=== PATIENT | male | born 1950 | race African-American/Black ===

== ENCOUNTER 2017-02-03 20:58 | Emergency (ER) | payer BC, OTHER ==
[2017-02-03 21:03] VITALS: BP 159/97; BMI 25.0
--- NOTE | 2017-02-03 22:01 | DR.GENAD ---
HPI - PCP Primary Care Physician: BENITO TINAJERO - Complaint/Symptoms Chief Complaint:: PT STATES HE HAS BEEN TAKING HIS BP MEDS WRONG AND BP WAS HIGH AT HOME. PT IS SUPPOSED TO TAKE HIS LISINOPRIL BID. LAST DOSE OF LISINOPRIL WAS AROUND 1845. - Source History Provided: Patient - Mode of Arrival Mode of Arrival: Ambulatory - Timing Onset of Chief Complaint: 02/03/17 PMH - PMH Past Medical History: Yes Past Medical History: Hypertension, Arthritis Past Surgical History: Yes Surgical History: Abdominal Surgery, Other - Family History History of Family Medical Conditions: Yes Family Medical History: Diabetes Mellitus, Hypertension - Social History Alcohol Use: None Do you use any recreational Drugs:: No Lives With: Family Lives Where: Home - infectious screening In the last 2 months have you had wt loss of >10#?: NO Have you had fever, night sweats or hemotysis?: No Have you traveled outside the country in the last 6 months?: No Isolation: Standard ROS - Review of Systems Eyes: No Symptoms Reported ENTM: No Symptoms Reported Respiratoy: No Symptoms Reported Cardiovascular: No Symptoms Reported Gastrointestinal/Abdominal: No Symptoms Reported Genitourinary: No Symptoms Reported Neurological: No Symptoms Reported Musculoskeletal: No Symptoms Reported Integumentary: No Symptoms Reported Hematologic/Lymphatic: No Symptoms Reported Endocrine: No Symptoms Reported Psychiatric: No Symptoms Reported All Other Systems: Reviewed and Negative PE - Vital Signs Vitals: Temperature 98.3 F Pulse Rate 95 Respiratory Rate 20 Blood Pressure 159/97 O2 Sat by Pulse Oximetry 96 - General General Appearance: Alert, In No Apparent Distress - Head Head Exam: Normal Inspection, Atraumatic - Eyes Eye exam: Normal Appearance, PERRL, EOMI - ENT ENT Exam: Normal Exam External Ear Exam: Normal External Inspection TM/Canal Exam: Bilateral Normal Nose Exam: Normal Nose Exam Mouth Exam: Normal Inspection Throat Exam: Normal Inspection - Neck Neck Exam: Normal Inspection - Chest Chest Inspection: Normal Inspection - Respiratory Respiratory Exam: Normal Lung Sounds Bilat Respiratory Exam: Bilateral Clear to Auscultation - Cardiovascular Cardiovascular Exam: Regular Rate, Normal Rhythm - Abdominal Exam Abdominal Exam: Normal Inspection Abdominal Tenderness: negative: RUQ, RLQ, LUQ, LLQ, Epigastrium, Suprapubic, Diffuse, Mild, Moderate, Severe, Other - Extremities Extremities Exam: Normal Inspection, Full ROM - Back Back Exam: Normal Inspection - Neurologic Neurological Exam: Alert, Oriented X3, CN II-XII Intact - Skin Skin Exam: Warm, Dry, Intact Course - Reevaluation 1st: Improved ROR - Labs Reviewed Result Diagrams: 02/03/17 22:15 02/03/17 22:15 Laboratory: WBC 8.8 X10^3/uL (3.6-10.0) 02/03/17 22:15 RBC 5.27 X10^6/uL (4.7-6.0) 02/03/17 22:15 Hgb 15.8 g/dL (13.5-18.0) 02/03/17 22:15 Hct 46.1 % (42.0-54.0) 02/03/17 22:15 MCV 87.5 fL (80.0-100.0) 02/03/17 22:15 MCH 30.0 pg (27.0-34.0) 02/03/17 22:15 MCHC 34.3 g/dL (33.0-35.0) 02/03/17 22:15 RDW 14.5 % (11.6-16.5) 02/03/17 22:15 Plt Count 266 X10^3/uL (150.0-450.0) 02/03/17 22:15 MPV 7.0 fL (7.4-11.0) L 02/03/17 22:15 Neut % 63.4 % (42.0-75.0) 02/03/17 22:15 Lymph % 22.7 % (21.0-51.0) 02/03/17 22:15 [place] % 10.3 % (0.0-13.0) 02/03/17 22:15 Eos % 2.9 % (0.9-2.9) 02/03/17 22:15 Baso % 0.7 % (0.2-1.0) 02/03/17 22:15 Neut # 5.6 x10^3/uL (2.2-4.8) H 02/03/17 22:15 Lymph # 2.0 X10^3/uL (1.3-2.9) 02/03/17 22:15 [place] # 0.9 x10^3/uL (0.3-0.8) H 02/03/17 22:15 Eos # 0.3 x10^3/uL (0.0-0.2) H 02/03/17 22:15 Baso # 0.1 X10^3/uL (0.0-0.1) 02/03/17 22:15 Absolute Nucleated RBC 0.1 /100WBC 02/03/17 22:15 Sodium 137 mmol/L (136-145) 02/03/17 22:15 Corrected Sodium 137 mmol/L (136-145) 02/03/17 22:15 Potassium 4.0 mmol/L (3.5-5.1) 02/03/17 22:15 Chloride 105 mmol/L (98-107) 02/03/17 22:15 Carbon Dioxide 25.8 mmol/L (21-32) 02/03/17 22:15 BUN 17 mg/dL (7-18) 02/03/17 22:15 Creatinine 1.23 mg/dL (0.70-1.30) 02/03/17 22:15 Est GFR (MDRD) Af Amer > 60 (>60) 02/03/17 22:15 Est GFR (MDRD) Non-Af > 60 (>60) 02/03/17 22:15 Glucose 118 mg/dL (65-99) H 02/03/17 22:15 Calcium 8.9 mg/dL (8.5-10.1) 02/03/17 22:15 Corrected Calcium TNP 02/03/17 22:15 Total Bilirubin 0.30 mg/dL (0.2-1.0) 02/03/17 22:15 AST 24 Units/L (15-37) 02/03/17 22:15 ALT 32 Units/L (12-78) 02/03/17 22:15 Alkaline Phosphatase 86 Units/L (46-116) 02/03/17 22:15 Total Protein 7.1 g/dL (6.4-8.2) 02/03/17 22:15 Albumin 3.5 g/dL (3.4-5.0) 02/03/17 22:15 Globulin 3.6 g/dL (2.5-4.5) 02/03/17 22:15 Albumin/Globulin Ratio 1.0 Ratio (1.1-2.1) L 02/03/17 22:15 - Diagnosis Discharge Problem: Elevated BP without diagnosis of hypertension - Discharge Plan Condition: Stable - Follow ups/Referrals Follow ups/Referrals: SINCERE TINAJERO [Primary Care Provider] - 3 days - Instructions
[2017-02-03] MEDS ORDERED: CATAPRES TAB 0.1 MG PO ONE (22:17)
[2017-02-03 22:23] LABS: BASOPHILS # (AUTO) 0.1 X10^3/uL (0.0-0.1); BASOPHILS % (AUTO) 0.7 % (0.2-1.0); EOSINOPHILS # (AUTO) 0.3 x10^3/uL (0.0-0.2); EOSINOPHILS % (AUTO) 2.9 % (0.9-2.9); HEMATOCRIT 46.1 % (42.0-54.0); HEMOGLOBIN 15.8 g/dL (13.5-18.0); LYMPHOCYTES % (AUTO) 22.7 % (21.0-51.0); MEAN CORPUSCULAR HGB CONC 34.3 g/dL (33.0-35.0); MEAN CORPUSCULAR VOLUME 87.5 fL (80.0-100.0); MONOCYTES # (AUTO) 0.9 x10^3/uL (0.3-0.8); MONOCYTES % (AUTO) 10.3 % (0.0-13.0); NEUTROPHILS # (AUTO) 5.6 x10^3/uL (2.2-4.8); NEUTROPHILS % (AUTO) 63.4 % (42.0-75.0); PLATELET COUNT 266 X10^3/uL (150.0-450.0); RED BLOOD COUNT 5.27 X10^6/uL (4.7-6.0); RED CELL DISTRIBUTION WIDTH 14.5 % (11.6-16.5); WHITE BLOOD COUNT 8.8 X10^3/uL (3.6-10.0)
[2017-02-03 22:36] LABS: ALANINE AMINOTRANSFERASE 32 Units/L (12-78); ALBUMIN 3.5 g/dL (3.4-5.0); ALKALINE PHOSPHATASE 86 Units/L (46-116); ASPARTATE AMINO TRANSFERASE 24 Units/L (15-37); BLOOD UREA NITROGEN 17 mg/dL (7-18); CALCIUM 8.9 mg/dL (8.5-10.1); CARBON DIOXIDE 25.8 mmol/L (21-32); CHLORIDE 105 mmol/L (98-107); COR NA(FOR HYPERGLY) 137 mmol/L (136-145); CREATININE 1.23 mg/dL (0.70-1.30); GLUCOSE 118 mg/dL (65-99); SODIUM 137 mmol/L (136-145); TOTAL PROTEIN 7.1 g/dL (6.4-8.2); eGFR BLACK RACES > 60 (>60); eGFR NON BLACK RACES > 60 (>60)
[2017-02-03] MEDS ORDERED: CATAPRES TAB 0.1 MG ONE (22:39)
== END 2017-02-03 23:04 | disposition home or self-care (01) ==
LOC: ER 21:12
DX: R03.0 Elevated blood-pressure reading, without diagnosis of hypertension (principal)
CPT/HCPCS: 36415; 80053; 85025; 99282

== ENCOUNTER 2017-04-30 07:32 | Emergency (ER) | payer BC, OTHER ==
[2017-04-30 07:41] VITALS: BP 137/78; BMI 25.0
--- NOTE | 2017-04-30 09:16 | DR.GENAD ---
HPI - PCP Primary Care Physician: WILLI - HPI Comment HPI Comment: PATIENT HAVE COUGH, CONGESTION, CHEST PAIN, BODYACHES AND RECENT PNEUMONIA. NO FEVER. WORSE TODAY. - Complaint/Symptoms Chief Complaint Doctors Comments: INCREASING SOB, RECENT PNEUMONIA. Chief Complaint:: CAN'T BREATHE AND WHOLE BODY ACHES Self Treatment fo Chief Complaint: HERNIA SURGERY TWO WEEKS, TREATED FOR PNEUMONIA WHILE IN HOSPITAL FOR WEEK TREATED WITH ANTIBIOTICS. - Nurses notes reviewed Nurses Notes Review: Yes - Source History Provided: Patient - Mode of Arrival Mode of Arrival: Ambulatory - Timing Onset of Chief Complaint: 04/28/17 Came on: Suddenly - Duration Duration: Constant Duration: Days - Severity Severity: Moderate PMH - PMH Past Medical History: Yes Past Medical History: Hypertension, Arthritis Past Surgical History: Yes Surgical History: Abdominal Surgery, Other Past Surgical History Comment: HERNIA SURGERY, BLOCKAGE IN LEGS - Family History History of Family Medical Conditions: Yes Family Medical History: Diabetes Mellitus, Hypertension - Social History Type of Tobacco Use: Cigarettes Does any household member use tobacco: No Alcohol Use: None Do you use any recreational Drugs:: No Lives With: Spouse Lives Where: Home - infectious screening In the last 2 months have you had wt loss of >10#?: NO Have you had fever, night sweats or hemotysis?: No Have you traveled outside the country in the last 6 months?: No Isolation: Standard ROS - Review of Systems Constitutional: Weakness, Fatigue. negative: Chills, Fever Eyes: No Symptoms Reported. negative: Eye Pain, Discharge ENTM: Nose Congestion, Throat Pain. negative: Ear Pain, Nose Discharge Respiratoy: Productive Cough, Short of Breath, Wheezing Cardiovascular: Chest Pain. negative: Edema, Palpitations Gastrointestinal/Abdominal: No Symptoms Reported, Nausea. negative: Diarrhea, Vomiting Genitourinary: No Symptoms Reported. negative: Dysuria, Frequency, Hematuria Neurological: Headache, Weakness, Dizziness Musculoskeletal: Muscle Pain Integumentary: No Symptoms Reported Hematologic/Lymphatic: No Symptoms Reported Endocrine: No Symptoms Reported All Other Systems: Reviewed and Negative PE - Vital Signs Vitals: Temperature 98.7 F Pulse Rate 106 Respiratory Rate 20 Blood Pressure 137/78 O2 Sat by Pulse Oximetry 92 - General Limitations: No Limitations General Appearance: Alert - Head Head Exam: Normal Inspection - Eyes Eye exam: Normal Appearance - ENT ENT Exam: Normal External Ear Exam External Ear Exam: Normal External Inspection TM/Canal Exam: Bilateral Normal Nose Exam: Normal Nose Exam Mouth Exam: Normal Inspection Throat Exam: Normal Inspection - Neck Neck Exam: Trachea Midline - Chest Chest Inspection: Symmetric Chest Wall Rise - Respiratory Respiratory Exam: Normal Lung Sounds Bilat Respiratory Exam: Bilateral Wheezing, Bilateral Rhonchi, Upper Rhonchi, Lower Wheezing, Lower Rhonchi - Cardiovascular Cardiovascular Exam: Regular Rate, Normal Rhythm, Normal Heart Sounds - Abdominal Exam Abdominal Exam: Normal Bowel Sounds, Soft. negative: Tenderness - Extremities Extremities Exam: Normal Inspection - Back Back Exam: Normal Inspection - Neurologic Neurological Exam: Alert, Oriented X3 - Psychiatric Psychiatric Exam: Normal Affect, Normal Mood - Skin Skin Exam: Normal Color MDM - Differential Diagnosis Differential Diagnosis: CHEST PAIN, PNEUMONIA, AL, BRONCHITIS Course - Treatment Treatment: SEE ORDERS. - Education/Counseling Education/Counseling: Patient, Education Educated On: Treatment, Diagnosis, Needs for Follow Up ROR - Labs Reviewed Laboratory Results Reviewed?: Yes Result Diagrams: 04/30/17 09:28 04/30/17 09:28 Laboratory: 04/30/17 09:56 Sputum - Expectorated Sputum Sputum Culture - Preliminary 04/30/17 09:56 Sputum - Expectorated Sputum - Final 04/30/17 09:56 Throat Throat Culture - Preliminary WBC 11.9 X10^3/uL (3.6-10.0) H 04/30/17 09:28 RBC 4.68 X10^6/uL (4.7-6.0) L 04/30/17 09:28 Hgb 14.0 g/dL (13.5-18.0) 04/30/17 09:28 Hct 41.9 % (42.0-54.0) L 04/30/17 09:28 MCV 89.5 fL (80.0-100.0) 04/30/17 09:28 MCH 29.9 pg (27.0-34.0) 04/30/17 09:28 MCHC 33.4 g/dL (33.0-35.0) 04/30/17 09:28 RDW 14.7 % (11.6-16.5) 04/30/17 09:28 Plt Count 279 X10^3/uL (150.0-450.0) 04/30/17 09:28 MPV 7.4 fL (7.4-11.0) 04/30/17 09: Neut % 79.0 % (42.0-75.0) H 04/30/17 09: Lymph % 9.1 % (21.0-51.0) L 04/30/17 09: [place] % 9.9 % (0.0-13.0) 04/30/17 09: Eos % 1.6 % (0.9-2.9) 04/30/17 09: Baso % 0.4 % (0.2-1.0) 04/30/17 09: Neut # 9.4 x10^3/uL (2.2-4.8) H 04/30/17 09: Lymph # 1.1 X10^3/uL (1.3-2.9) L 04/30/17 09:28 [place] # 1.2 x10^3/uL (0.3-0.8) H 04/30/17 09:28 Eos # 0.2 x10^3/uL (0.0-0.2) 04/30/17 09: Baso # 0.0 X10^3/uL (0.0-0.1) 04/30/17 09: Absolute Nucleated RBC 0.0 /100WBC 04/30/17 09:28 Sodium 141 mmol/L (136-145) 04/30/17 09:28 Corrected Sodium TNP 04/30/17 09:28 Potassium 4.6 mmol/L (3.5-5.1) 04/30/17 09: Chloride 106 mmol/L (98-107) 04/30/17 09: Carbon Dioxide 25.0 mmol/L (21-32) 04/30/17 09:28 BUN 16 mg/dL (7-18) 04/30/17 09:28 Creatinine 1.50 mg/dL (0.70-1.30) H 04/30/17 09:28 Est GFR (MDRD) Af Amer 60 (>60) 04/30/17 09:28 Est GFR (MDRD) Non-Af 50 (>60) L 04/30/17 09:28 Glucose 98 mg/dL (65-99) 04/30/17 09:28 Calcium 9.6 mg/dL (8.5-10.1) 04/30/17 09:28 Corrected Calcium TNP 04/30/17 09:28 Total Bilirubin 0.50 mg/dL (0.2-1.0) 04/30/17 09:28 AST 20 Units/L (15-37) 04/30/17 09:28 ALT 27 Units/L (12-78) 04/30/17 09:28 Alkaline Phosphatase 137 Units/L (46-116) H 04/30/17 09:28 Creatine Kinase 61 Units/L (39-308) 04/30/17 09:28 CK-MB (CK-2) < 1.0 ng/mL (0-4.0) 04/30/17 09:28 CK/CKMB % Calc 1.6 % (<4) 04/30/17 09:28 Troponin I < 0.02 ng/mL (0-1.5) 04/30/17 09:28 B-Natriuretic Peptide 26.8 pg/mL (0-79) 04/30/17 09:28 Total Protein 7.4 g/dL (6.4-8.2) 04/30/17 09:28 Albumin 3.4 g/dL (3.4-5.0) 04/30/17 09:28 Globulin 4.0 g/dL (2.5-4.5) 04/30/17 09:28 Albumin/Globulin Ratio 0.9 Ratio (1.1-2.1) L 04/30/17 09:28 Specimen Type Clean catch urine 04/30/17 09:56 Urine Color Dark yellow (YELLOW) 04/30/17 09:56 Urine Appearance Clear (CLEAR) 04/30/17 09:56 Urine pH 6.5 (5.0 - 8.0) 04/30/17 09:56 Ur Specific [place] 1.010 (1.000-1.030) 04/30/17 09:56 Urine Protein 2+ (NEGATIVE) 04/30/17 09:56 Urine Glucose (UA) Negative (NEGATIVE) 04/30/17 09:56 Urine Ketones Negative (NEGATIVE) 04/30/17 09:56 Urine Occult Blood 2+ (NEGATIVE) 04/30/17 09:56 Urine Nitrite Negative (NEGATIVE) 04/30/17 09:56 Urine Bilirubin Negative (NEGATIVE) 04/30/17 09:56 Urine Urobilinogen Normal (NORMAL) 04/30/17 09:56 Ur Leukocyte Esterase 1+ (NEGATIVE) 04/30/17 09:56 Urine RBC 4-7 /HPF (NEGATIVE) 04/30/17 09:56 Urine WBC 0-4 /HPF (NEGATIVE) 04/30/17 09:56 Ur Squamous Epith Cells Rare /HPF (NEGATIVE) 04/30/17 09:56 Urine Bacteria Negative /HPF (NEGATIVE) 04/30/17 09:56 Ur Culture Indicated? No/not indicated 04/30/17 09:56 Influenza Type A (PCR) Negative (NEGATIVE) 04/30/17 09:56 Influenza Type B (PCR) Negative (NEGATIVE) 04/30/17 09:56 Streptococcus Screen Negative (NEGATIVE) 04/30/17 09:56 - XRAY XRAY Interpreted by: Radiologist XRAY Findings: REPORT DISCUSS WITH PATIENT. - EKG Rhythm: NSR (EKG NOTED) - Diagnosis Discharge Problem: Acute bronchitis Qualifiers: Bronchitis organism: other organism Qualified Code(s): J20.8 - Acute bronchitis due to other specified organisms Chest pain Qualifiers: Chest pain type: unspecified Qualified Code(s): R07.9 - Chest pain, unspecified - Discharge Plan Disposition: HOME, SELF-CARE Condition: Stable Prescriptions: Benzonatate [Tessalon Perle] 200 mg PO TID PRN #30 cap PRN Reason: Cough Ibuprofen [MOTRIN TAB 600 MG *] 600 mg PO TID PRN #20 tab PRN Reason: Pain/Inflammation Levofloxacin [Levaquin] 750 mg PO DAILY #7 tablet - Follow ups/Referrals Follow ups/Referrals: SINCERE TINAJERO [Primary Care Provider] - 3 days - Instructions Instructions: Acute Bronchitis, [id number], Chest Pain Observation Additional Instructions: RETURN TO ED IF WORSE.
[2017-04-30 10:05] LABS: BASOPHILS % (AUTO) 0.4 % (0.2-1.0); EOSINOPHILS # (AUTO) 0.2 x10^3/uL (0.0-0.2); EOSINOPHILS % (AUTO) 1.6 % (0.9-2.9); HEMATOCRIT 41.9 % (42.0-54.0); LYMPHOCYTES # (AUTO) 1.1 X10^3/uL (1.3-2.9); LYMPHOCYTES % (AUTO) 9.1 % (21.0-51.0); MEAN CORPUSCULAR HEMOGLOBIN 29.9 pg (27.0-34.0); MEAN CORPUSCULAR HGB CONC 33.4 g/dL (33.0-35.0); MEAN CORPUSCULAR VOLUME 89.5 fL (80.0-100.0); MEAN PLATELET VOLUME 7.4 fL (7.4-11.0); MONOCYTES # (AUTO) 1.2 x10^3/uL (0.3-0.8); MONOCYTES % (AUTO) 9.9 % (0.0-13.0); NEUTROPHILS # (AUTO) 9.4 x10^3/uL (2.2-4.8); PLATELET COUNT 279 X10^3/uL (150.0-450.0); RED BLOOD COUNT 4.68 X10^6/uL (4.7-6.0); RED CELL DISTRIBUTION WIDTH 14.7 % (11.6-16.5); WHITE BLOOD COUNT 11.9 X10^3/uL (3.6-10.0)
[2017-04-30 10:06] LABS: BILIRUBIN,URINE NEGATIVE (NEGATIVE); BLOOD/HEMOGLOBIN,URINE 2+ (NEGATIVE); GLUCOSE, URINE NEGATIVE (NEGATIVE); KETONES,URINE NEGATIVE (NEGATIVE); LEUKOCYTE ESTERASE ,URINE 1+ (NEGATIVE); NITRITES,URINE NEGATIVE (NEGATIVE); PH,URINE 6.5 (5.0 - 8.0); PROTEIN,URINE 2+ (NEGATIVE); UROBILINOGEN,URINE NORMAL (NORMAL)
[2017-04-30 10:19] LABS: BLOOD UREA NITROGEN 16 mg/dL (7-18); CALCIUM 9.6 mg/dL (8.5-10.1); CHLORIDE 106 mmol/L (98-107); SODIUM 141 mmol/L (136-145); TROPONIN I < 0.02 ng/mL (0-1.5); eGFR BLACK RACES 60 (>60); eGFR NON BLACK RACES 50 (>60)
[2017-04-30 10:20] LABS: B-TYPE NATRIURETIC PEPTIDE 26.8 pg/mL (0-79)
[2017-04-30 10:24] LABS: ALANINE AMINOTRANSFERASE 27 Units/L (12-78); ALBUMIN 3.4 g/dL (3.4-5.0); ALKALINE PHOSPHATASE 137 Units/L (46-116); ASPARTATE AMINO TRANSFERASE 20 Units/L (15-37); CREATINE KINASE 61 Units/L (39-308); CREATINE KINASE MB < 1.0 ng/mL (0-4.0); TOTAL PROTEIN 7.4 g/dL (6.4-8.2)
[2017-04-30 10:25] LABS: APPEARANCE,URINE CLEAR (CLEAR); BACTERIA,URINE NEGATIVE /HPF (NEGATIVE); COLOR,URINE DARK YELLOW (YELLOW); SQUAMOUS EPITHELIAL CELL,UR RARE /HPF (NEGATIVE)
[2017-04-30 10:29] LABS: CKMB % 1.6 % (<4)
[2017-04-30] MEDS ORDERED: ROCEPHIN VIAL 1 GM IM ONE (11:25)
--- NOTE | 2017-04-30 11:27 | RAD ---
HISTORY: Shortness breath. Coughing. Pneumonia 1 week ago. Study: Chest one view Comparison: February 17, 2015. Findings: The trachea is midline. The cardiac silhouette is unremarkable. The lungs are clear without focal i nfiltrate or effusion. The bony thorax is unremarkable. IMPRESSION: 1. No acute cardiopulmonary disease. Reported By:
[2017-04-30] MEDS ORDERED: TORADOL 60 MG VIAL IM ONE (11:33)
[2017-04-30] MEDS ORDERED: TESSALON PERLES PO ONE (11:34)
[2017-04-30] MEDS ORDERED: ROCEPHIN VIAL 1 GM ONE (11:37)
[2017-04-30] MEDS ORDERED: TORADOL 60 MG VIAL ONE (11:37)
[2017-04-30] MEDS ORDERED: XYLOCAINE 1 % (PLAIN) ONE (11:38)
== END 2017-04-30 12:05 | disposition home or self-care (01) ==
LOC: ER 07:43
DX: J20.8 Acute bronchitis due to other specified organisms (principal); R07.89 Other chest pain; B96.5 Pseudomonas (aeruginosa) (mallei) (pseudomallei) as the cause of diseases classified elsewhere
CPT/HCPCS: 36415; 71010; 80053; 81001; 82550; 82553; 83880; 84484; 85025; 87070; 87077; 87186; 87205; 87502; 87880; 93005; 93010; 96372; 99282; 99283; J0696; J1885; J2001

== ENCOUNTER 2018-12-12 04:06 | Observation (INO) ==
--- NOTE | 2018-12-12 04:39 | DR.HEADACH ---
HPI Time Seen Time Seen by Provider: 12/12/18 04:21 HPI Comment HPI Comment: PATIENT IS 68YR OLD MALE IN ED WITH HISTORY OF HYPERTENSION IN ED WITH SEVERE HEADACHE, ATAXIA, AND ALTERED MENTAL STATUS. PATIENT IS WEAK AND DRAIN OF ENERGY. SAID SINCE MIDNIGHT, PATIENT HAS FALLEN SEVERAL TIMES. NO FEVER. HE IS COUGHING, PRODUCTIVE, YELLOW SPUTUM. NO FEVER. BP ELEVATED IN ED. ROUND.PATIENT IS SOB AND O2 SAT FALLS WHEN PATIENT MOVE AROUND. Complaint/Symptoms Chief Complaint Doctors Comments: SEVERE HEADACHE, FALLING A LOT AND NOT ACTING LIKE HIMSELF TONIGHT. Pertinent History: Dizziness/Weakness and Headache Reviewed Nurses Notes Reviewed: Yes Source History Provided: Patient and Family Member Mode of Arrival Mode of Arrival: Stretcher Duration Since Onset: Constant Location Headache Location: Generalized Quality Quality: Throbbing and Shooting Severity Headache Severity: Worst Headache of Life Context Headache Onset Circumstances: Spontaneous History of: Hypertension Prior Work Up: None; denies MRI and Neurologist Modifying Factors Improves With: Nothing Worsens: Head Movement Associated Signs and Symptoms Associated Symptoms: Weakness and Nasal Congestion Aura: denies Visual, Sensory, Motor and Mood PMH PMH Past Medical History: Arthritis and Hypertension Past Surgical History: Yes Surgical History: Abdominal Surgery and Other Family History Family Medical History: Diabetes Mellitus and Hypertension Social History Do you use any recreational Drugs:: No ROS Review of Systems Constitutional: See HPI, Weakness and Fatigue; negative Fever Eyes: No Symptoms Reported and See HPI; negative Eye Pain, Tearing and Discharge ENTM: See HPI and Nose Congestion; negative Ear Pain, Nose Discharge and Throat Pain Respiratoy: See HPI, Productive Cough and Short of Breath; negative Wheezing Cardiovascular: No Symptoms Reported and See HPI; negative Edema and Syncope Gastrointestinal/Abdominal: No Symptoms Reported and See HPI; negative Abdominal Pain, Constipation, Diarrhea, Nausea and Vomiting Genitourinary: No Symptoms Reported and See HPI; negative Dysuria and Hematuria Neurological: See HPI, Headache and Weakness; negative Dizziness Musculoskeletal: No Symptoms Reported, See HPI, Back Pain, Joint Pain and Muscle Pain Integumentary: No Symptoms Reported, See HPI and Dryness; negative Change in Color, Rash and Bruises Hematologic/Lymphatic: No Symptoms Reported and See HPI; negative Easy Bruising, Swollen Glands and Lymphadenopathy Endocrine: No Symptoms Reported and See HPI; negative Increased Thirst, Increased Urine and Decreased Appetite Psychiatric: No Symptoms Reported and See HPI All Other Systems: Reviewed and Negative PE Vital Signs Vitals: Temperature 97.8 F Pulse Rate [Right] 70 Pulse Rate 67 Respiratory Rate 20 Blood Pressure [Right Arm] 190/101 Blood Pressure 188/92 O2 Sat by Pulse Oximetry 100 General Limitations: Altered Mental Status General Appearance: Alert and In Distress Head Head Exam: Normal Inspection, Atraumatic and Normocephalic Eyes Eye exam: Normal Appearance, PERRL and EOMI; negative Scleral Icterus and C onjunctival Injection Eyelids: Normal Inspection: Bilateral Pupils: Regular, Round: Bilateral and Reactive: Bilateral Sclera/Conjunctival: Normal Inspection: Bilateral ENT ENT Exam: Normal Exam, Normal Oropharynx, Normal External Ear Exam, Mucous Membranes Moist and TM's Normal Bilaterally External Ear Exam: Normal External Inspection; negative Mastoid Tenderness, Pain with Movement and External Tenderness TM/Canal Exam: Bilateral: Normal Nose Exam: Normal Nose Exam; negative Sinus Tenderness, Nasal Deviation and Septal Hematoma Mouth Exam: Normal Inspection; negative Trismus, Lip Swelling and Tongue Swelling Teeth Exam: negative Gingival Swelling Throat Exam: Normal Inspection; negative Tonsillar Erythema, Tonsillomegaly and Tonsillar Exudate Neck Neck Exam: Normal Inspection, Full ROM and Trachea Midline; negative Tenderness, Meningismus and Lymphadenopathy Chest Chest Inspection: Normal Inspection and Symmetric Chest Wall Rise; negative Tenderness Respiratory Respiratory Exam: Normal Lung Sounds Bilat; negative Accessory Muscle Use, Chest Wall Tenderness and Respiratory Distress Respiratory Exam: Bilateral: Rhonchi and Lower: Rhonchi Cardiovascular Cardiovascular Exam: Regular Rate, Normal Rhythm and Normal Heart Sounds; negative Systolic Murmur, Diastolic Murmur, Rubs and Gallop Abdominal Exam Abdominal Exam: Normal Inspection, Normal Bowel Sounds and Soft; negative Tenderness, Organomegaly and Mass Extremities Extremities Exam: negative Tenderness, Normal Capillary Refill, Edema, Joint Swelling and Calf Tenderness Neurologic Neurological Exam: Alert; negative Oriented X3, CN II-XII Intact and Motor Sensory Deficit Psychiatric Psychiatric Exam: Normal Affect and Flat Affect Skin Skin Exam: Dry and Intact MDM Additional Information Obtained Additional Information Obtained From: Family Differential Diagnosis Differential Diagnosis: Considerations may include:: Hypertensive, CVA, Mass Lesion and Sinusitis Differential Diagnosis Comment: AMS, HEADACHE, GENERALIZE WEAKNESS, BRONCHITIS COURSE Education/Counseling Education/Counseling: Patient and Family Educated On: Diagnosis ROR Labs Reviewed Laboratory Results Reviewed?: Yes Result Diagrams: 12/12/18 04:50 12/12/18 04:50 Laboratory: WBC 7.8 X10^3/uL (3.6-10.0) 12/12/18 04:50 RBC 5.26 X10^6/uL (4.7-6.0) 12/12/18 04:50 Hgb 15.6 g/dL (13.5-18.0) 12/12/18 04:50 Hct 46.7 % (42.0-54.0) 12/12/18 04:50 MCV 88.7 fL (80.0-100.0) 12/12/18 04:50 MCH 29.6 pg (27.0-34.0) 12/12/18 04:50 MCHC 33.4 g/dL (33.0-35.0) 12/12/18 04:50 RDW 14.4 % (11.6-16.5) 12/12/18 04:50 Plt Count 220 X10^3/uL (150.0-450.0) 12/12/18 04:50 MPV 7.4 fL (7.4-11.0) 12/12/18 04:50 Neut % (Auto) 66.9 % (42.0-75.0) 12/12/18 04:50 Lymph % (Auto) 20.3 % (21.0-51.0) L 12/12/18 04:50 [place] % (Auto) 8.3 % (0.0-13.0) 12/12/18 04:50 Eos % (Auto) 3.8 % (0.9-2.9) H 12/12/18 04:50 Baso % (Auto) 0.7 % (0.2-1.0) 12/12/18 04:50 Neut # (Auto) 5.2 x10^3/uL (2.2-4.8) H 12/12/18 04:50 Lymph # (Auto) 1.6 X10^3/uL (1.3-2.9) 12/12/18 04:50 [place] # (Auto) 0.6 x10^3/uL (0.3-0.8) 12/12/18 04:50 Eos # (Auto) 0.3 x10^3/uL (0.0-0.2) H 12/12/18 04:50 Baso # (Auto) 0.1 X10^3/uL (0.0-0.1) 12/12/18 04:50 Absolute Nucleated RBC 0.0 /100WBC 12/12/18 04:50 Sodium 142 mmol/L (136-145) 12/12/18 04:50 Corrected Sodium TNP 12/12/18 04:50 Potassium 4.7 mmol/L (3.5-5.1) 12/12/18 04:50 Chloride 106 mmol/L (98-107) 12/12/18 04:50 Carbon Dioxide 29.0 mmol/L (21-32) 12/12/18 04:50 BUN 17 mg/dL (7-18) 12/12/18 04:50 Creatinine 1.72 mg/dL (0.70-1.30) H 12/12/18 04:50 Est GFR (MDRD) Af Amer 51 (>60) L 12/12/18 04:50 Est GFR (MDRD) Non-Af 42 (>60) L 12/12/18 04:50 Glucose 92 mg/dL (65-99) 12/12/18 04:50 Lactic Acid 0.6 mmol/L (0.4-2.0) 12/12/18 04:50 Calcium 9.7 mg/dL (8.5-10.1) 12/12/18 04:50 Corrected Calcium TNP 12/12/18 04:50 Total Bilirubin 0.40 mg/dL (0.2-1.0) 12/12/18 04:50 AST 18 Units/L (15-37) 12/12/18 04:50 ALT 28 Units/L (12-78) 12/12/18 04:50 Alkaline Phosphatase 86 Units/L (46-116) 12/12/18 04:50 Creatine Kinase 113 Units/L (39-308) 12/12/18 04:50 CK-MB (CK-2) 2.0 ng/mL (0-4.0) 12/12/18 04:50 CK/CKMB % Calc 1.8 % (<4) 12/12/18 04:50 Troponin I < 0.02 ng/mL (0-1.5) 12/12/18 04:50 C-Reactive Protein 1.60 mg/L (0-3.0) 12/12/18 04:50 Total Protein 6.9 g/dL (6.4-8.2) 12/12/18 04:50 Albumin 3.7 g/dL (3.4-5.0) 12/12/18 04:50 Globulin 3.2 g/dL (2.5-4.5) 12/12/18 04:50 Albumin/Globulin Ratio 1.2 Ratio (1.1-2.1) 12/12/18 04:50 XRAY XRAY Interpreted by: Radiologist XRAY Findings: REPORT ON RECORD NOTED AND DISCUSS WITH PATIENT AND HIS . EKG Rate: 71 [place]: Normal Rhythm: NSR Block: None Hypertrophy: LAE ST: Old, Ant and Ischemia Diagnosis Discharge Problem: Generalized weakness, Ataxia Altered mental status Qualifiers: Altered mental status type: transient alteration of awareness Qualified Code(s): R40.4 - Transient alteration of awareness Acute bronchitis Qualifiers: Bronchitis organism: unspecified organism Qualified Code(s): J20.9 - Acute bronchitis, unspecified Headache Qualifiers: Headache type: unspecified Headache chronicity pattern: acute headache Intractability: intractable Qualified Code(s): R51 - Headache
[2018-12-12 05:10] LABS: BASOPHILS # (AUTO) 0.1 X10^3/uL (0.0-0.1); BASOPHILS % (AUTO) 0.7 % (0.2-1.0); EOSINOPHILS # (AUTO) 0.3 x10^3/uL (0.0-0.2); EOSINOPHILS % (AUTO) 3.8 % (0.9-2.9); HEMATOCRIT 46.7 % (42.0-54.0); HEMOGLOBIN 15.6 g/dL (13.5-18.0); LYMPHOCYTES # (AUTO) 1.6 X10^3/uL (1.3-2.9); LYMPHOCYTES % (AUTO) 20.3 % (21.0-51.0); MEAN CORPUSCULAR HEMOGLOBIN 29.6 pg (27.0-34.0); MEAN CORPUSCULAR HGB CONC 33.4 g/dL (33.0-35.0); MEAN CORPUSCULAR VOLUME 88.7 fL (80.0-100.0); MEAN PLATELET VOLUME 7.4 fL (7.4-11.0); MONOCYTES # (AUTO) 0.6 x10^3/uL (0.3-0.8); MONOCYTES % (AUTO) 8.3 % (0.0-13.0); NEUTROPHILS # (AUTO) 5.2 x10^3/uL (2.2-4.8); NEUTROPHILS % (AUTO) 66.9 % (42.0-75.0); PLATELET COUNT 220 X10^3/uL (150.0-450.0); RED BLOOD COUNT 5.26 X10^6/uL (4.7-6.0); RED CELL DISTRIBUTION WIDTH 14.4 % (11.6-16.5); WHITE BLOOD COUNT 7.8 X10^3/uL (3.6-10.0)
[2018-12-12 05:22] LABS: LACTIC ACID 0.6 mmol/L (0.4-2.0)
[2018-12-12 05:24] LABS: BLOOD UREA NITROGEN 17 mg/dL (7-18); CALCIUM 9.7 mg/dL (8.5-10.1); CHLORIDE 106 mmol/L (98-107); CREATININE 1.72 mg/dL (0.70-1.30); SODIUM 142 mmol/L (136-145); TROPONIN I < 0.02 ng/mL (0-1.5); eGFR NON BLACK RACES 42 (>60)
--- NOTE | 2018-12-12 05:26 | CT ---
CT brain without contrast Indication:Headache Comparison: 03/24/2013 Technique: Multiple axial images of the brain were obtained from the skull base to the vertex without administration of IV contrast. Findings: Mild generalized cerebral atrophy with bilateral periventricular and deep white matter hypoattenuation. No acute intraparenchymal hemorrhage or mass can be identified. No extra-axial fluid collections are seen. No alteration in the attenuation of the brain parenchyma can be identified to suggest acute or subacute ischemic change. The ventricular system is symmetric and nondilated. The extracranial structures are grossly unremarkable. IMPRESSION: No acute intracranial hemorrhage. Mild generalized cerebral atrophy with bilateral periventricular deep white matter hypoattenuation is nonspecific however likely represent sequela of chronic microvascular ischemic disease. Reported By:
[2018-12-12 05:28] LABS: ALANINE AMINOTRANSFERASE 28 Units/L (12-78); ALBUMIN 3.7 g/dL (3.4-5.0); ALKALINE PHOSPHATASE 86 Units/L (46-116); ASPARTATE AMINO TRANSFERASE 18 Units/L (15-37); CKMB % 1.8 % (<4); CREATINE KINASE 113 Units/L (39-308); TOTAL PROTEIN 6.9 g/dL (6.4-8.2)
--- NOTE | 2018-12-12 05:31 | RAD ---
AP chest Indication: Elevated blood pressure Comparison: 02/23/2018 Findings: The lungs are clear and the heart size is normal. No pleural effusion or pneumothorax. No acute osseous abnormality. Impression: No acute cardiopulmonary abnormality. Reported By:
[2018-12-12] MEDS ORDERED: CATAPRES TAB 0.2 MG ONE (07:12)
[2018-12-12] MEDS ORDERED: CATAPRES TAB 0.2 MG PO ONE (07:15)
[2018-12-12] MEDS ORDERED: VITAMIN D (1.25MG) PO SCH (08:12)
[2018-12-12] MEDS: ASPIRIN EC 81 MG PO SCH (10:05)
[2018-12-12] MEDS: LOPRESSOR TAB 50 MG PO SCH ×2 (10:05→21:05)
[2018-12-12] MEDS: BRILINTA PO SCH ×2 (10:05→21:04)
[2018-12-12] MEDS: FORTAZ or TAZICEF VIAL INJ IVP SCH ×3 (10:05→21:11)
[2018-12-12] MEDS: NORVASC TAB 10 MG PO SCH (10:05)
[2018-12-12] MEDS ORDERED: CATAPRES-TTS-1 TD SCH (11:00)
[2018-12-12 12:03] LABS: CKMB % 1.6 % (<4); CREATINE KINASE 92 Units/L (39-308); CREATINE KINASE MB 1.5 ng/mL (0-4.0); TROPONIN I < 0.02 ng/mL (0-1.5)
--- NOTE | 2018-12-12 12:05 | VAS ---
History: Ataxia and dizziness Study: Carotid duplex ultrasound Comparison: None Findings: There is heavy calcified moderate plaque formation in the right carotid bulb and at the bifurcation. No significant plaque formation is demonstrated on the left. Peak systolic velocity in the distal right common carotid artery is 49.2 centimeters/second and in the internal carotid artery is 104.5 centimeters/second for a ratio of 2.12. Peak systolic velocity in the distal left common carotid artery is 29.4 centimeters/second and in the left internal carotid artery is 63 centimeters/second for a ratio of 2.1. There is antegrade flow in the left vertebral artery. The right vertebral is not visualized. Impression: 1. Prominent calcified plaque formation in the right carotid bulb causing approximately 50% stenosis 2. No significant stenosis on the left. 3. Nonvisualization of the right vertebral, patent antegrade flow in the left vertebral. Reported By:
[2018-12-12] MEDS: DUONEB 0.5 MG/3 MG NEB SCH ×3 (12:19→21:12)
[2018-12-12 12:34] VITALS: BMI 24.6
[2018-12-12 17:17] LABS: CREATINE KINASE 81 Units/L (39-308); TROPONIN I < 0.02 ng/mL (0-1.5)
[2018-12-12 17:39] LABS: CKMB % 1.6 % (<4); CREATINE KINASE MB 1.3 ng/mL (0-4.0)
[2018-12-12 17:44] LABS: BILIRUBIN,URINE NEGATIVE (NEGATIVE); BLOOD/HEMOGLOBIN,URINE 1+ (NEGATIVE); GLUCOSE, URINE NEGATIVE (NEGATIVE); KETONES,URINE NEGATIVE (NEGATIVE); LEUKOCYTE ESTERASE ,URINE 2+ (NEGATIVE); NITRITES,URINE NEGATIVE (NEGATIVE); PROTEIN,URINE 3+ (NEGATIVE); UROBILINOGEN,URINE NORMAL (NORMAL)
[2018-12-12 17:54] LABS: APPEARANCE,URINE SLIGHTLY HAZY (CLEAR); COLOR,URINE YELLOW (YELLOW)
[2018-12-12 17:55] LABS: BACTERIA,URINE TRACE /HPF (NEGATIVE); SQUAMOUS EPITHELIAL CELL,UR MODERATE /HPF (NEGATIVE)
--- NOTE | 2018-12-12 21:00 | DR.H&P ---
H&P - History & Physical for Day of: H&P Date: 12/12/18 - Chief Complaint Chief Complaint: WEAKNESS, DIZZINESS, UNSTEADY GAIT, COUGH, HEADACHE, HTN - History of Present Illness History of Present Illness: IS A 68 YEAR OLD PATIENT OF OURS WHO PRESENTED TO THE ER WITH COMPLAINTS OF HYPERTENSION, SEVERE HEADACHE, DIZZINESS, AND UNSTEADY GAIT. FAMILY REPORTS THAT PATIENT HAS BEEN CONFUSED AT TIMES. THEY REPORT THAT HE HAS A PRODUCTIVE COUGH. THEY DENY FEVER. ON ARRIVAL, VITALS WERE 97.8-67-20-95%-208/116. LABS WERE OBTAINED. ABNORMAL LAB VALUES INCLUDE THE FOLLOWING: CREATININE 1.72. CARDIAC ENZYMES WITHIN NORMAL LIMITS. A URINALYSIS WAS OBTAINED. IT REVEALED WBC 20-30, RBC 10-20, LEUKOCYTES 2+, BACTERIA TRACE. A BRAIN CT WAS OBTAINED AND REVEALED: No acute intracranial hemorrhage. Mild generalized cerebral atrophy with bilateral periventricular deep white matter hypoattenuation is nonspecific however likely represent sequela of chronic microvascular ischemic disease. A CHEST XRAY WAS OBTAINED AND REVEALED: No acute cardiopulmonary abnormality. EKG REVEALED: SINUS RHYTHM WITH HR 71. HE WAS GIVEN CLONIDINE 0.2MG PO X 1. BLOOD PRESSURE WAS NOTED TO DECREASE TO 188/92. HE WAS ADMITTED FOR FURTHER EVALUATION AND TREATMENT OF AMS, HEADACHE, WEAKNESS, ATAXIA, ACUTE BRONCHITIS, AND A URINARY TRACT INFECTION. HE WAS STARTED ON RESPIRATORY TX, FORTAZ 1G IV Q12H, CATAPRES 0.1MG/HR TD PATCH, AND HOME MEDICATIONS WERE RESUMED. TODAY, WE WILL OBTAIN A CAROTID DOPPLER AND ECHO. WE WILL HAVE PHYSICAL THERAPY EVALUATE PATIENT. OTHERWISE, WE PLAN TO FOLLOW UP WITH AM LABS AND CONTINUE TO MONITOR. - Past Medical History Past Medical History: Hypertension, Arthritis - Past Surgical History Surgical History: Abdominal Surgery, CABG/Valve Surgery - Family History Family Medical History: Diabetes Mellitus, Hypertension - Social History Does patient currently use any type of tobacco product: Yes Have you used tobacco products in the last 12 months: Yes Type of Tobacco Use: Cigarettes How many years tobacco product used: 48 Does any household member use tobacco: No Alcohol Use: None Drug Use: Prescription Drugs - Medications Home Medications: No Known Drug Allergies Allergy (Verified 12/12/18 06:28) CONTINUE taking the following medications amlodipine 10 mg PO DAILY 12/12/18 [History] ergocalciferol (vitamin D2) [Vitamin D2] 50,000 unit PO 2XW 12/12/18 [History] metoprolol tartrate 50 mg PO BID 12/12/18 [History] ticagrelor [Brilinta] 90 mg PO BID 12/12/18 [History] - Review of Systems Constitutional: See HPI, Weakness, Malaise Eyes: No Symptoms Reported ENT: No Symptoms Reported Respiratory: Cough, Shortness of Breath, Sputum Cardiovascular: Light Headedness Gastrointestinal: No Symptoms Reported Genitourinary: No Symptoms Reported Musculoskeletal: No Symptoms Reported Neurological: Weakness, Confusion - Physical Exam Vital Signs: Temperature 97.6 F Pulse Rate [Left Brachial] 56 Pulse Rate [Right] 70 Pulse Rate 67 Respiratory Rate 18 Blood Pressure [Left Arm] 189/91 Blood Pressure [Right Arm] 190/101 Blood Pressure 188/92 O2 Sat by Pulse Oximetry 96 Oriented: Person Eyes: Normal Ear: Normal Nose: Normal Throat: Normal Respiratory: Diminished Throughout Cardiovascular: Normal : Normal Auscultation: Bowel Sounds: Normal Palpation: Normal Tenderness: Normal Skin: Normal Musculoskeletal: Normal Psychiatric: Normal Mood Description: Calm, Appropriate Affect: Normal Speech Pattern: Clear - Assessment/Plan (1) Ataxia Status: Acute Plan: OBTAIN CAROTID DOPPLER, OBTAIN ECHO, RESUME HOME MEDS (2) Generalized weakness Status: Acute (3) Acute bronchitis Qualifiers: Bronchitis organism: unspecified organism Qualified Code(s): J20.9 - Acute bronchitis, unspecified Status: Acute Plan: DUONEBS, FORTAZ 1G IV Q12H, CONTINUE TO MONITOR (4) HTN (hypertension) Qualifiers: Hypertension type: essential hypertension Qualified Code(s): I10 - Essential (primary) hypertension Status: Acute Plan: CATAPRES 0.1MG/HR TD PATCH, NORVASC 10MG PO DAILY, CONTINUE TO MONITOR (5) Altered mental status Qualifiers: Altered mental status type: transient alteration of awareness Qualified Code(s): R40.4 - Transient alteration of awareness Status: Acute (6) Headache Qualifiers: Headache type: unspecified Headache chronicity pattern: acute headache Intractability: intractable Qualified Code(s): R51 - Headache Status: Acute - Allergies Allergies/Adverse Reactions: Allergies Allergy/AdvReac Type Severity Reaction Status Date / Time No Known Drug Allergies Allergy Verified 12/12/18 06:28
[2018-12-12] MEDS: LIPITOR TAB 40 MG PO SCH (21:05)
[2018-12-12] MEDS: KLONOPIN TAB 1 MG PO SCH (21:05)
[2018-12-13] MEDS: DUONEB 0.5 MG/3 MG NEB SCH ×6 (01:40→20:54)
[2018-12-13 05:31] LABS: BASOPHILS % (AUTO) 0.4 % (0.2-1.0); EOSINOPHILS # (AUTO) 0.3 x10^3/uL (0.0-0.2); HEMATOCRIT 41.4 % (42.0-54.0); HEMOGLOBIN 13.8 g/dL (13.5-18.0); LYMPHOCYTES # (AUTO) 1.8 X10^3/uL (1.3-2.9); LYMPHOCYTES % (AUTO) 26.6 % (21.0-51.0); MEAN CORPUSCULAR HEMOGLOBIN 29.6 pg (27.0-34.0); MEAN CORPUSCULAR HGB CONC 33.4 g/dL (33.0-35.0); MEAN CORPUSCULAR VOLUME 88.7 fL (80.0-100.0); MONOCYTES # (AUTO) 0.7 x10^3/uL (0.3-0.8); PLATELET COUNT 184 X10^3/uL (150.0-450.0); RED BLOOD COUNT 4.67 X10^6/uL (4.7-6.0); RED CELL DISTRIBUTION WIDTH 14.5 % (11.6-16.5); WHITE BLOOD COUNT 6.8 X10^3/uL (3.6-10.0)
[2018-12-13 05:38] LABS: ALANINE AMINOTRANSFERASE 21 Units/L (12-78); ALKALINE PHOSPHATASE 71 Units/L (46-116); ASPARTATE AMINO TRANSFERASE 15 Units/L (15-37); BLOOD UREA NITROGEN 18 mg/dL (7-18); CALCIUM 9.3 mg/dL (8.5-10.1); CARBON DIOXIDE 25.1 mmol/L (21-32); CHLORIDE 107 mmol/L (98-107); COR CA(FOR HYPOALB) 10.1 mg/dL (8.5-10.1); CREATININE 1.47 mg/dL (0.70-1.30); MAGNESIUM 1.7 mg/dL (1.7-2.9); SODIUM 140 mmol/L (136-145); TOTAL PROTEIN 5.8 g/dL (6.4-8.2); eGFR NON BLACK RACES 51 (>60)
[2018-12-13] MEDS: BRILINTA PO SCH ×2 (08:15→21:19)
[2018-12-13] MEDS: NORVASC TAB 10 MG PO SCH (08:15)
[2018-12-13] MEDS: FORTAZ or TAZICEF VIAL INJ IVP SCH ×2 (08:15→21:20)
[2018-12-13] MEDS: ASPIRIN EC 81 MG PO SCH (08:15)
[2018-12-13] MEDS: LOPRESSOR TAB 50 MG PO SCH ×2 (08:15→21:20)
[2018-12-13] MEDS ORDERED: TYLENOL 325 MG TAB PO PRN (08:16)
[2018-12-13] MEDS ORDERED: ZOFRAN INJ 4 MG VIAL IVP PRN (10:32)
[2018-12-13] MEDS ORDERED: ZOFRAN INJ 4 MG VIAL ONE (10:33)
[2018-12-13] MEDS ORDERED: CATAPRES-TTS-2 TD SCH (11:00)
[2018-12-13] MEDS: KLONOPIN TAB 1 MG PO SCH (21:20)
[2018-12-13] MEDS: LIPITOR TAB 40 MG PO SCH (21:20)
[2018-12-14] MEDS: DUONEB 0.5 MG/3 MG NEB SCH ×3 (00:10→08:22)
[2018-12-14 06:39] LABS: BASOPHILS % (AUTO) 0.7 % (0.2-1.0); EOSINOPHILS # (AUTO) 0.2 x10^3/uL (0.0-0.2); EOSINOPHILS % (AUTO) 3.6 % (0.9-2.9); HEMATOCRIT 41.2 % (42.0-54.0); LYMPHOCYTES # (AUTO) 1.8 X10^3/uL (1.3-2.9); LYMPHOCYTES % (AUTO) 27.9 % (21.0-51.0); MEAN CORPUSCULAR HEMOGLOBIN 29.5 pg (27.0-34.0); MEAN CORPUSCULAR HGB CONC 33.9 g/dL (33.0-35.0); MEAN PLATELET VOLUME 7.6 fL (7.4-11.0); MONOCYTES # (AUTO) 0.7 x10^3/uL (0.3-0.8); MONOCYTES % (AUTO) 10.9 % (0.0-13.0); NEUTROPHILS # (AUTO) 3.7 x10^3/uL (2.2-4.8); NEUTROPHILS % (AUTO) 56.9 % (42.0-75.0); PLATELET COUNT 194 X10^3/uL (150.0-450.0); RED BLOOD COUNT 4.74 X10^6/uL (4.7-6.0); RED CELL DISTRIBUTION WIDTH 14.1 % (11.6-16.5); WHITE BLOOD COUNT 6.4 X10^3/uL (3.6-10.0)
[2018-12-14 06:52] LABS: ALANINE AMINOTRANSFERASE 22 Units/L (12-78); ALBUMIN 3.2 g/dL (3.4-5.0); ALKALINE PHOSPHATASE 80 Units/L (46-116); ASPARTATE AMINO TRANSFERASE 16 Units/L (15-37); BLOOD UREA NITROGEN 17 mg/dL (7-18); CALCIUM 9.4 mg/dL (8.5-10.1); CARBON DIOXIDE 25.5 mmol/L (21-32); CHLORIDE 106 mmol/L (98-107); CREATININE 1.52 mg/dL (0.70-1.30); SODIUM 140 mmol/L (136-145); TOTAL PROTEIN 6.4 g/dL (6.4-8.2); eGFR NON BLACK RACES 49 (>60)
[2018-12-14] MEDS: NORVASC TAB 10 MG PO SCH (09:51)
[2018-12-14] MEDS: ASPIRIN EC 81 MG PO SCH (09:51)
[2018-12-14] MEDS: BRILINTA PO SCH (09:51)
[2018-12-14] MEDS: FORTAZ or TAZICEF VIAL INJ IVP SCH (09:51)
[2018-12-14] MEDS: LOPRESSOR TAB 50 MG PO SCH (09:51)
[2018-12-14 11:14] VITALS: BP 186/86
--- NOTE | 2018-12-25 19:55 | PCM.PROG ---
Progress Note - Progress Note for Day of Date of Exam: 12/13/18 - Subjective Subjective: WAS ADMITTED FOR ATAXIA, GENERALIZED WEAKNESS, HTN, AND ACUTE BRONCHITIS. HE ALSO CONTINUES WITH A HEADACHE THIS MORNING. HE ALSO CONTINUES WITH A COUGH AND COMPLAINTS OF SHORTNESS OF BREATH. HIS SPOUSE REPORTS THAT HE IS CONFUSED AT TIMES AND CONTINUES WITH UNSTEADY GAIT. ON EXAMMINATION, HEART IS REGULAR IN RATE AND RHYTHM. BILATERAL LUNGS ARE NOTED WITH DIMINISHED LUNG SOUNDS THROUGHOUT. ABDOMEN IS ROUND, SOFT, AND NON-TENDER WITH NORMAL BOWEL SOUNDS NOTED IN ALL QUADRANTS. HIS VITALS THIS MORNING ARE 98.3-65-18-99%-170/98. LABS WERE OBTAINED. ABNORMAL LAB VALUES INCLUDE THE FOLLOWING: RBC 4.67, HCT 41.4, CREATININE 1.47, TOTAL PROTEIN 5.8, ALBUMIN 3.0. A URINALYSIS WAS OBTAINED LAST NIGHT AND REVEALED: WBC 20-30, RBC 10-20, LEUKOCYTES 2+, BACTERIA TRACE. URINE AND BLOOD CULTURES ARE PENDING. A CAROTID ARTERY ULTRASOUND WAS OBTAINED AND REVEALED: Prominent calcified plaque formation in the right carotid bulb causing approximately 50% stenosis. No significant stenosis on the left. Nonvisualization of the right vertebral, patent antegrade flow in the left vertebral. ECHO REVEALED AN EJECTION FRACTION OF 58%. HE IS CURRENTLY RECEIVING IV ANTIBIOTICS AND HOME MEDS WERE RESUMED. TODAY, WE WILL INCREASE HIS CLONIDINE PATCH TO 0.2MG/HR TD PATCH. OTHERWISE, WE WILL FOLLOW UP WITH AM LABS AND CONTINUE TO MONITOR. - Past Medical Family Social History Past Med/Fam/Surg Hx: No changes since H&P Allergies: Allergies No Known Drug Allergies Allergy (Verified 12/12/18 06:28) - Review of Systems ROS: No change since H&P - Vital Signs and I&O's Vital Signs: Temperature 98.2 F Pulse Rate [Left Brachial] 59 Pulse Rate [Right] 66 Pulse Rate 76 Respiratory Rate 18 Blood Pressure [Left Arm] 162/83 Blood Pressure [Right Arm] 186/86 Blood Pressure 188/92 O2 Sat by Pulse Oximetry 97 - Physical Exam Oriented: Person Eyes: Normal Ear: Normal Nose: Normal Throat: Normal Respiratory: Diminished Cardiovascular: Normal : Normal Auscultation: Bowel Sounds: Normal Tenderness: Normal Skin: Normal Musculoskeletal: Normal Psychiatric: Normal Mood Description: Calm, Appropriate Affect: Normal Speech Pattern: Clear, Appropriate - Laboratory and Diagnostics Result Diagrams: 12/14/18 05:47 12/14/18 05:47 Labs: 12/12/18 04:55 Blood Blood Culture - Final 12/12/18 04:50 Blood Blood Culture - Final 12/12/18 17:27 Urine,Clean Catch Urine Culture - Final Laboratory WBC 6.4 X10^3/uL (3.6-10.0) 12/14/18 05:47 RBC 4.74 X10^6/uL (4.7-6.0) 12/14/18 05:47 Hgb 14.0 g/dL (13.5-18.0) 12/14/18 05:47 Hct 41.2 % (42.0-54.0) L 12/14/18 05:47 MCV 87.0 fL (80.0-100.0) 12/14/18 05:47 MCH 29.5 pg (27.0-34.0) 12/14/18 05:47 MCHC 33.9 g/dL (33.0-35.0) 12/14/18 05:47 RDW 14.1 % (11.6-16.5) 12/14/18 05:47 Plt Count 194 X10^3/uL (150.0-450.0) 12/14/18 05:47 MPV 7.6 fL (7.4-11.0) 12/14/18 05:47 Neut % (Auto) 56.9 % (42.0-75.0) 12/14/18 05:47 Lymph % (Auto) 27.9 % (21.0-51.0) 12/14/18 05:47 [place] % (Auto) 10.9 % (0.0-13.0) 12/14/18 05:47 Eos % (Auto) 3.6 % (0.9-2.9) H 12/14/18 05:47 Baso % (Auto) 0.7 % (0.2-1.0) 12/14/18 05:47 Neut # (Auto) 3.7 x10^3/uL (2.2-4.8) 12/14/18 05:47 Lymph # (Auto) 1.8 X10^3/uL (1.3-2.9) 12/14/18 05:47 [place] # (Auto) 0.7 x10^3/uL (0.3-0.8) 12/14/18 05:47 Eos # (Auto) 0.2 x10^3/uL (0.0-0.2) 12/14/18 05:47 Baso # (Auto) 0.0 X10^3/uL (0.0-0.1) 12/14/18 05:47 Absolute Nucleated RBC 0.1 /100WBC 12/14/18 05:47 Sodium 140 mmol/L (136-145) 12/14/18 05:47 Corrected Sodium TNP 12/14/18 05:47 Potassium 3.8 mmol/L (3.5-5.1) 12/14/18 05:47 Chloride 106 mmol/L (98-107) 12/14/18 05:47 Carbon Dioxide 25.5 mmol/L (21-32) 12/14/18 05:47 BUN 17 mg/dL (7-18) 12/14/18 05:47 Creatinine 1.52 mg/dL (0.70-1.30) H 12/14/18 05:47 Est GFR (MDRD) Af Amer 59 (>60) 12/14/18 05:47 Est GFR (MDRD) Non-Af 49 (>60) L 12/14/18 05:47 Glucose 85 mg/dL (65-99) 12/14/18 05:47 Lactic Acid 0.6 mmol/L (0.4-2.0) 12/12/18 04:50 Calcium 9.4 mg/dL (8.5-10.1) 12/14/18 05:47 Corrected Calcium 10.0 mg/dL (8.5-10.1) 12/14/18 05:47 Magnesium 1.9 mg/dL (1.7-2.9) 12/14/18 05:47 Total Bilirubin 0.50 mg/dL (0.2-1.0) 12/14/18 05:47 AST 16 Units/L (15-37) 12/14/18 05:47 ALT 22 Units/L (12-78) 12/14/18 05:47 Alkaline Phosphatase 80 Units/L (46-116) 12/14/18 05:47 Creatine Kinase 81 Units/L (39-308) 12/12/18 16:42 CK-MB (CK-2) 1.3 ng/mL (0-4.0) 12/12/18 16:42 CK/CKMB % Calc 1.6 % (<4) 12/12/18 16:42 Troponin I < 0.02 ng/mL (0-1.5) 12/12/18 16:42 C-Reactive Protein 1.60 mg/L (0-3.0) 12/12/18 04:50 Total Protein 6.4 g/dL (6.4-8.2) 12/14/18 05:47 Albumin 3.2 g/dL (3.4-5.0) L 12/14/18 05:47 Globulin 3.2 g/dL (2.5-4.5) 12/14/18 05:47 Albumin/Globulin Ratio 1.0 Ratio (1.1-2.1) L 12/14/18 05:47 Specimen Type Clean catch urine 12/12/18 17:27 Urine Color Yellow (YELLOW) 12/12/18 17:27 Urine Appearance Slightly hazy (CLEAR) 12/12/18 17:27 Urine pH 5.0 (5.0 - 8.0) 12/12/18 17:27 Ur Specific [place] 1.020 (1.000-1.030) 12/12/18 17:27 Urine Protein 3+ (NEGATIVE) 12/12/18 17:27 Urine Glucose (UA) Negative (NEGATIVE) 12/12/18 17:27 Urine Ketones Negative (NEGATIVE) 12/12/18 17:27 Urine Occult Blood 1+ (NEGATIVE) 12/12/18 17:27 Urine Nitrite Negative (NEGATIVE) 12/12/18 17:27 Urine Bilirubin Negative (NEGATIVE) 12/12/18 17:27 Urine Urobilinogen Normal (NORMAL) 12/12/18 17:27 Ur Leukocyte Esterase 2+ (NEGATIVE) 12/12/18 17:27 Urine RBC 10-20 /HPF (NONE SEEN) 12/12/18 17:27 Urine WBC 20-30 /HPF (NONE SEEN) 12/12/18 17:27 Ur Squamous Epith Cells Moderate /HPF (NEGATIVE) 12/12/18 17:27 Urine Bacteria Trace /HPF (NEGATIVE) 12/12/18 17:27 Ur Culture Indicated? Yes/culture set up 12/12/18 17:27 - Plan (1) Ataxia Status: Acute Plan: OBTAIN CAROTID DOPPLER, OBTAIN ECHO, RESUME HOME MEDS (2) Generalized weakness Status: Acute (3) Acute bronchitis Status: Acute Qualifiers: Bronchitis organism: unspecified organism Qualified Code(s): J20.9 - Acute bronchitis, unspecified Plan: DUONEBS, FORTAZ 1G IV Q12H, CONTINUE TO MONITOR (4) HTN (hypertension) Status: Acute Qualifiers: Hypertension type: essential hypertension Qualified Code(s): I10 - Essential (primary) hypertension Plan: CATAPRES 0.1MG/HR TD PATCH, NORVASC 10MG PO DAILY, CONTINUE TO MONITOR (5) Altered mental status Status: Acute Qualifiers: Altered mental status type: transient alteration of awareness Qualified Code(s): R40.4 - Transient alteration of awareness (6) Headache Status: Acute Qualifiers: Headache type: unspecified Headache chronicity pattern: acute headache Intractability: intractable Qualified Code(s): R51 - Headache
== END 2018-12-14 12:00 | disposition home or self-care (01) ==
LOC: ER 04:07 → MED/SURG 04:07
PROVIDERS: ADMIT Internal Medicine; ATTEND Internal Medicine
DX: R06.02 Shortness of breath; R53.1 Weakness; J20.8 Acute bronchitis due to other specified organisms; N39.0 Urinary tract infection, site not specified; R42 Dizziness and giddiness; I10 Essential (primary) hypertension; R94.4 Abnormal results of kidney function studies; R29.6 Repeated falls; R51 Headache; R40.4 Transient alteration of awareness; Z79.899 Other long term (current) drug therapy; R26.89 Other abnormalities of gait and mobility
CPT/HCPCS: 36415; 70450; 71010; 71045; 80053; 81001; 82550; 82553; 83605; 83735; 84484; 85025; 86140; 87040; 87086; 93005; 93306; 93880; 94640; 94760; 96365; 96374; 97162; 97166; 99284; A4222; G0378; J0713; J2405; J3490; J7620

== ENCOUNTER 2020-03-14 08:02 | Observation (INO) ==
[2020-03-14 08:33] VITALS: BMI 26.9
[2020-03-14] MEDS ORDERED: CATAPRES TAB 0.2 MG PO ONE (08:39)
[2020-03-14 08:46] LABS: ABG ALLEN TEST P; ABG BASE EXCESS 1.4 mmol/L (-2.0-2.0); ABG HCO3 24.7 mmol/L (22-26)
[2020-03-14] MEDS ORDERED: CATAPRES TAB 0.2 MG ONE (08:57)
--- NOTE | 2020-03-14 09:01 | DR.SOBA ---
HPI Time Seen Time Seen by Provider: 03/14/20 08:27 Primary Care Physician Primary Care Physician: sonny HPI Comment HPI Comment: According to pt he was well before yesterday. experienced increased shortness of breath with coughing that has worsened. Pt does have hx of COPD Has also noticed chest pain with out radiation. Does not know whether it wor sens with activity Complaints Chief Complaint:: PT C/O SHORTNESS OF BREATH AND SLIGHT CHEST PAIN. PT STATES IT STARTED LAST NIGHT. 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 COVID-19 Coronavirus risk:travel/contact w/high risk person: No Has patient experienced Coronavirus symptoms: Yes Coronavirus symptoms experienced: Coughing and Shortness of Breath Reviewed Nurses Notes Reviewed: Yes Source History Provided: Patient and Family Member Mode of Arrival Mode of Arrival: Ambulatory Timing Onset of Chief Complaint: 03/14/20 PMH PMH Past Medical History: Yes Past Medical History: Arthritis, COPD, Hypertension and [place] Past Surgical History: Yes Surgical History: Abdominal Surgery, Angioplasty/Stents and CABG/Valve Surgery Family History History of Family Medical Conditions: Yes Family Medical History: Diabetes Mellitus and Hypertension Social History Does any household member use tobacco: No Alcohol Use: None Do you use any recreational Drugs:: No Lives With: Family Lives Where: Home Travel Risk Coronavirus risk:travel/contact w/high risk person: No Has patient experienced Coronavirus symptoms: Yes Coronavirus symptoms experienced: Coughing and Shortness of Breath Infectious screening In the last 2 months have you had wt loss of >10#?: NO Have you had fever, night sweats or hemotysis?: No Have you traveled outside the country in the last 6 months?: No Isolation: Droplet ROS Review of Systems Constitutional: Weakness and Fatigue Eyes: No Symptoms Reported ENTM: No Symptoms Reported Respiratoy: Non-Productive Cough, Short of Breath and Wheezing Cardiovascular: Chest Pain and Palpitations Gastrointestinal/Abdominal: Abdominal Pain, Diarrhea and Nausea Integumentary: No Symptoms Reported Hematologic/Lymphatic: No Symptoms Reported Endocrine: No Symptoms Reported Psychiatric: No Symptoms Reported PE Vital Signs Vitals: Temperature 97.3 F Pulse Rate 73 Respiratory Rate 27 Blood Pressure [Left Arm] 162/83 Blood Pressure [Right Arm] 186/86 Blood Pressure 193/107 O2 Sat by Pulse Oximetry 93 General Limitations: No Limitations General Appearance: Alert and Anxious Eyes Eye exam: Normal Appearance and PERRL ENT ENT Exam: Normal Exam and Mucous Membranes Moist Neck Neck Exam: Normal Inspection Respiratory Respiratory Exam: Chest Wall Tenderness and Prolonged Expiratory Phase Respiratory Exam: Bilateral: Rales Cardiovascular Cardiovascular Exam: Tachycardia, +S1 and +S2 Abdominal Exam Abdominal Exam: Normal Bowel Sounds and Soft Extremities Extremities Exam: Normal Inspection Skin Skin Exam: Warm MDM Additional Information Obtained Additional Findings:: shortness of breath,cough,hypertensive urgency chest pain COURSE Treatment Treatment: clonidine .2 mg ,oxygen,cxr ,blood work .cxr no acute finding .Give solumederol 125 mg .lebatalol Blood pressure not better .dropped to 190`s the lowest will speak with hospitalist to admit will get rapid covid test too [facility] Labs Reviewed Laboratory Results Reviewed?: Yes Result Diagrams: 03/14/20 08:15 03/14/20 08:15 Laboratory: WBC 6.8 X10^3/uL (3.6-10.0) 03/14/20 08:15 RBC 5.45 X10^6/uL (4.7-6.0) 03/14/20 08:15 Hgb 16.0 g/dL (13.5-18.0) 03/14/20 08:15 Hct 47.6 % (42.0-54.0) 03/14/20 08:15 MCV 87.3 fL (80.0-100.0) 03/14/20 08:15 MCH 29.4 pg (27.0-34.0) 03/14/20 08:15 MCHC 33.7 g/dL (33.0-35.0) 03/14/20 08:15 RDW 14.5 % (11.6-16.5) 03/14/20 08:15 Plt Count 243 X10^3/uL (150.0-450.0) 03/14/20 08:15 MPV 7.6 fL (7.4-11.0) 03/14/20 08:15 Neut % (Auto) 68.8 % (42.0-75.0) 03/14/20 08:15 Lymph % (Auto) 17.8 % (21.0-51.0) L 03/14/20 08:15 [place] % (Auto) 5.9 % (0.0-13.0) 03/14/20 08:15 Eos % (Auto) 4.4 % (0.9-2.9) H 03/14/20 08:15 Baso % (Auto) 3.1 % (0.2-1.0) H 03/14/20 08:15 Neut # (Auto) 4.7 x10^3/uL (2.2-4.8) 03/14/20 08:15 Lymph # (Auto) 1.2 X10^3/uL (1.3-2.9) L 03/14/20 08:15 [place] # (Auto) 0.4 x10^3/uL (0.3-0.8) 03/14/20 08:15 Eos # (Auto) 0.3 x10^3/uL (0.0-0.2) H 03/14/20 08:15 Baso # (Auto) 0.2 X10^3/uL (0.0-0.1) H 03/14/20 08:15 Absolute Nucleated RBC 0.2 /100WBC 03/14/20 08:15 Sample Site Rr 03/14/20 08:34 ABG pH 7.470 (7.35-7.45) H 03/14/20 08:34 ABG pCO2 34.0 mmHg (35.0-45.0) L 03/14/20 08:34 ABG pO2 65.0 mmHg (80.0-100.0) L 03/14/20 08:34 ABG HCO3 24.7 mmol/L (22-26) 03/14/20 08:34 ABG O2 Saturation 94.0 % (90-100) 03/14/20 08:34 ABG Base Excess 1.4 mmol/L (-2.0-2.0) 03/14/20 08:34 [place] Test P 03/14/20 08:34 A-a Gradient 42.0 mmHg 03/14/20 08:34 FiO2 21.0 03/14/20 08:34 Blood Gas Comments Abg david well 03/14/20 08:34 Sodium 139 mmol/L (136-145) 03/14/20 08:15 Corrected Sodium TNP 03/14/20 08:15 Potassium 4.3 mmol/L (3.5-5.1) 03/14/20 08:15 Chloride 105 mmol/L (98-107) 03/14/20 08:15 Carbon Dioxide 28.1 mmol/L (21-32) 03/14/20 08:15 BUN 13 mg/dL (7-18) 03/14/20 08:15 Creatinine 1.55 mg/dL (0.70-1.30) H 03/14/20 08:15 Est GFR (MDRD) Af Amer 57 (>60) L 03/14/20 08:15 Est GFR (MDRD) Non-Af 47 (>60) L 03/14/20 08:15 Glucose 104 mg/dL (65-99) H 03/14/20 08:15 Lactic Acid 1.4 mmol/L (0.4-2.0) 03/14/20 08:15 Calcium 9.6 mg/dL (8.5-10.1) 03/14/20 08:15 Corrected Calcium TNP 03/14/20 08:15 Ferritin 247 ng/mL (26-388) 03/14/20 08:15 Total Bilirubin 0.50 mg/dL (0.2-1.0) 03/14/20 08:15 AST 17 Units/L (15-37) 03/14/20 08:15 ALT 21 Units/L (12-78) 03/14/20 08:15 Alkaline Phosphatase 78 Units/L (46-116) 03/14/20 08:15 Creatine Kinase 104 Units/L (39-308) 03/14/20 08:15 CK-MB (CK-2) 2.1 ng/mL (0-4.0) 03/14/20 08:15 CK/CKMB % Calc 2.0 % (<4) 03/14/20 08:15 Troponin I < 0.02 ng/mL (0-1.5) 03/14/20 08:15 C-Reactive Protein 4.90 mg/L (0-3.0) H 03/14/20 08:15 B-Natriuretic Peptide 41.2 pg/mL (0-79) 03/14/20 08:15 Total Protein 7.3 g/dL (6.4-8.2) 03/14/20 08:15 Albumin 3.8 g/dL (3.4-5.0) 03/14/20 08:15 Globulin 3.5 g/dL (2.5-4.5) 03/14/20 08:15 Albumin/Globulin Ratio 1.1 Ratio (1.1-2.1) 03/14/20 08:15 Specimen Type Clean catch urine 03/14/20 09:01 Urine Color Yellow (YELLOW) 03/14/20 09:01 Urine Appearance Clear (CLEAR) 03/14/20 09:01 Urine pH 7.0 (5.0 - 8.0) 03/14/20 09:01 Ur Specific [place] 1.010 (1.000-1.030) 03/14/20 09:01 Urine Protein 4+ (NEGATIVE) 03/14/20 09:01 Urine Glucose (UA) Negative (NEGATIVE) 03/14/20 09:01 Urine Ketones 1+ (NEGATIVE) 03/14/20 09:01 Urine Occult Blood 3+ (NEGATIVE) 03/14/20 09:01 Urine Nitrite Negative (NEGATIVE) 03/14/20 09:01 Urine Bilirubin Negative (NEGATIVE) 03/14/20 09:01 Urine Urobilinogen 1+ (NORMAL) 03/14/20 09:01 Ur Leukocyte Esterase 1+ (NEGATIVE) 03/14/20 09:01 Urine RBC 3-5 /HPF (0-3) A 03/14/20 09:01 Urine WBC 3-5 /HPF (0-5) 03/14/20 09:01 Ur Squamous Epith Cells Negative /HPF (NEGATIVE) 03/14/20 09:01 Urine Bacteria Negative /HPF (NEGATIVE) 03/14/20 09:01 Ur Culture Indicated? No/not indicated 03/14/20 09:01 XRAY X-ray Results: no acute pathology EKG no acute ST changes Opioid Opioid Risk Tool Age (Isai box if 16-45): No History of Preadolescent Sexual Abuse: No Total: 0 Total Score Risk Category: Low Risk Copyright: Galdino PERALES predicting aberrant behaviors Diagnosis Discharge Problem: Acute exacerbation of chronic obstructive pulmonary disease (COPD), Hypertensive urgency, malignant, Coronary artery disease, Tobacco user, Abnormal kidney function Instructions Forms: Precautions for COVID19 Patient Portal Social Distancing
[2020-03-14 09:06] LABS: BASOPHILS # (AUTO) 0.2 X10^3/uL (0.0-0.1); BASOPHILS % (AUTO) 3.1 % (0.2-1.0); EOSINOPHILS # (AUTO) 0.3 x10^3/uL (0.0-0.2); EOSINOPHILS % (AUTO) 4.4 % (0.9-2.9); HEMATOCRIT 47.6 % (42.0-54.0); LYMPHOCYTES # (AUTO) 1.2 X10^3/uL (1.3-2.9); LYMPHOCYTES % (AUTO) 17.8 % (21.0-51.0); MEAN CORPUSCULAR HEMOGLOBIN 29.4 pg (27.0-34.0); MEAN CORPUSCULAR HGB CONC 33.7 g/dL (33.0-35.0); MEAN CORPUSCULAR VOLUME 87.3 fL (80.0-100.0); MEAN PLATELET VOLUME 7.6 fL (7.4-11.0); MONOCYTES # (AUTO) 0.4 x10^3/uL (0.3-0.8); MONOCYTES % (AUTO) 5.9 % (0.0-13.0); NEUTROPHILS # (AUTO) 4.7 x10^3/uL (2.2-4.8); NEUTROPHILS % (AUTO) 68.8 % (42.0-75.0); PLATELET COUNT 243 X10^3/uL (150.0-450.0); RED BLOOD COUNT 5.45 X10^6/uL (4.7-6.0); RED CELL DISTRIBUTION WIDTH 14.5 % (11.6-16.5); WHITE BLOOD COUNT 6.8 X10^3/uL (3.6-10.0)
--- NOTE | 2020-03-14 09:09 | RAD ---
HISTORYSOBSTUDYPortable AP [id number]/10/2018, report onlyFINDINGSNormal heart size. The lungs are clear and symmetrically inflated. There is no mediastinal, hilar or pleural disease.IMPRESSIONNo acute abnormality demonstrated.Electronically signed by: DEEJAY ALANIZ (Mar 14, 2020 09:08:18)
[2020-03-14] MEDS ORDERED: SOLU-Medrol 125 MG VIAL IVP ONE (09:18)
[2020-03-14 09:26] LABS: BILIRUBIN,URINE NEGATIVE (NEGATIVE); BLOOD/HEMOGLOBIN,URINE 3+ (NEGATIVE); GLUCOSE, URINE NEGATIVE (NEGATIVE); KETONES,URINE 1+ (NEGATIVE); LEUKOCYTE ESTERASE ,URINE 1+ (NEGATIVE); NITRITES,URINE NEGATIVE (NEGATIVE); PROTEIN,URINE 4+ (NEGATIVE); UROBILINOGEN,URINE 1+ (NORMAL)
[2020-03-14 09:28] LABS: ALANINE AMINOTRANSFERASE 21 Units/L (12-78); ALBUMIN 3.8 g/dL (3.4-5.0); ALKALINE PHOSPHATASE 78 Units/L (46-116); ASPARTATE AMINO TRANSFERASE 17 Units/L (15-37); BLOOD UREA NITROGEN 13 mg/dL (7-18); CALCIUM 9.6 mg/dL (8.5-10.1); CARBON DIOXIDE 28.1 mmol/L (21-32); CHLORIDE 105 mmol/L (98-107); CREATININE 1.55 mg/dL (0.70-1.30); SODIUM 139 mmol/L (136-145); TOTAL PROTEIN 7.3 g/dL (6.4-8.2); eGFR NON BLACK RACES 47 (>60)
[2020-03-14] MEDS ORDERED: SOLU-Medrol 125 MG VIAL ONE (09:30)
[2020-03-14 09:35] LABS: APPEARANCE,URINE CLEAR (CLEAR); BACTERIA,URINE NEGATIVE /HPF (NEGATIVE); COLOR,URINE YELLOW (YELLOW); SQUAMOUS EPITHELIAL CELL,UR NEGATIVE /HPF (NEGATIVE)
[2020-03-14 09:36] LABS: LACTIC ACID 1.4 mmol/L (0.4-2.0)
[2020-03-14] MEDS ORDERED: NORMODYNE INJ 100 MG VIAL ONE (09:45)
[2020-03-14] MEDS ORDERED: NORMODYNE INJ 20 MG VIAL IVP ONE (09:48)
[2020-03-14 09:49] LABS: CREATINE KINASE 104 Units/L (39-308); CREATINE KINASE MB 2.1 ng/mL (0-4.0); TROPONIN I < 0.02 ng/mL (0-1.5)
[2020-03-14 12:31] LABS: CREATINE KINASE 103 Units/L (39-308); CREATINE KINASE MB 2.1 ng/mL (0-4.0); TROPONIN I < 0.02 ng/mL (0-1.5)
--- NOTE | 2020-03-14 12:53 | DR.H&P ---
H&P - History & Physical for Day of: H&P Date: 03/14/20 - Chief Complaint Chief Complaint: SOB, CHEST PRESSURE, ELEVATED BLOOD PRESSURE - History of Present Illness History of Present Illness: PT IS 69 BM ER ADMISSION WITH UNCONTROLLED HTN, WE AKNESS AND CHEST PRESSURE. PT CO INCREASE SOB. PT BP 250 SYSTOLIC ON ARRIVAL TO ER. PT HAS PMH OF HTN, OA, DM. PT ADMITTED TO ICU FOR TREATMENT OF ACUTE ILLNESS. DENIES ANY FEVER, PT HAD NEGATIVE RAPID COVID IN ER. - Past Medical History Past Medical History: [place], Hypertension, COPD, Arthritis - Past Surgical History Surgical History: Abdominal Surgery, Angioplasty/Stents, CABG/Valve Surgery - Family History Family Medical History: Diabetes Mellitus, Hypertension - Social History Does patient currently use any type of tobacco product: No Alcohol Use: None - Medications Home Medications: No Known Drug Allergies Allergy (Verified 12/12/18 06:28) CONTINUE taking the following medications methocarbamol 750 mg PO TID PRN 03/14/20 [History] ticagrelor [Brilinta] 60 mg PO BID 03/14/20 [History] tramadol 50 mg PO TID PRN 03/14/20 [History] - Review of Systems Constitutional: Weakness Eyes: No Symptoms Reported ENT: No Symptoms Reported Respiratory: Shortness of Breath Cardiovascular: Chest Pain Gastrointestinal: No Symptoms Reported Genitourinary: No Symptoms Reported Musculoskeletal: No Symptoms Reported Skin: No Symptoms Reported Neurological: No Symptoms Reported - Physical Exam Vital Signs: Temperature 97.3 F Pulse Rate 73 Respiratory Rate 27 Blood Pressure [Left Arm] 162/83 Blood Pressure [Right Arm] 186/86 Blood Pressure 193/107 O2 Sat by Pulse Oximetry 93 Oriented: Normal Eyes: Normal Ear: Normal Nose: Normal Throat: Normal Respiratory: RLL Diminished, LLL Diminished Cardiovascular: Normal : Normal Auscultation: Bowel Sounds: Normal Palpation: Normal Tenderness: Normal Skin: Normal Musculoskeletal: Normal Psychiatric: Anxiety Affect: Anxious Speech Pattern: Clear, Appropriate - Assessment/Plan (1) Hypertensive urgency Status: Acute Plan: ADMIT, ICU. SERIAL CE AND EKG. BP CONTROL, CONTINUOUS SUPPLEMENTAL O2. VERIFY HOME MEDICATION, CXR ON ADMISSION. RAPID COVID IN ER -, STRICT I & OS (2) Generalized weakness Status: Acute (3) Acute exacerbation of chronic obstructive pulmonary disease (COPD) Status: Acute (4) Coronary artery disease Status: Acute - Allergies Allergies/Adverse Reactions: Allergies Allergy/AdvReac Type Severity Reaction Status Date / Time No Known Drug Allergies Allergy Verified 12/12/18 06:28
[2020-03-14] MEDS: ASPIRIN EC 81 MG PO SCH (14:13)
[2020-03-14] MEDS: MAXZIDE 37.5/25 MG PO SCH (14:13)
[2020-03-14] MEDS: NORVASC TAB 10 MG PO SCH (14:13)
[2020-03-14] MEDS: SOLU-Medrol 125 MG VIAL IVP SCH ×2 (14:14→21:21)
[2020-03-14 17:56] LABS: CKMB % 2.7 % (<4); CREATINE KINASE 115 Units/L (39-308); CREATINE KINASE MB 3.1 ng/mL (0-4.0); TROPONIN I < 0.02 ng/mL (0-1.5)
[2020-03-14] MEDS: LOPRESSOR TAB 50 MG PO SCH (20:19)
[2020-03-14] MEDS: LIPITOR TAB 40 MG PO SCH (20:19)
[2020-03-14 23:38] LABS: CKMB % 2.6 % (<4); CREATINE KINASE 141 Units/L (39-308); CREATINE KINASE MB 3.6 ng/mL (0-4.0); TROPONIN I < 0.02 ng/mL (0-1.5)
[2020-03-14] MEDS: TICAGRELOR 60 MG PO SCH (23:43)
[2020-03-15] MEDS ORDERED: MAALOX or MYLANTA PO PRN (01:29)
[2020-03-15] MEDS ORDERED: ROBITUSSIN DM PO PRN (02:55)
[2020-03-15] MEDS: DUONEB 0.5 MG/3 MG (3 mL) NEB PRN ×2 (03:05→20:15)
[2020-03-15] MEDS ORDERED: ZOFRAN INJ 4 MG VIAL IVP PRN (05:07)
[2020-03-15] MEDS: LOPRESSOR TAB 50 MG PO SCH ×3 (05:14→20:36)
[2020-03-15] MEDS: SOLU-Medrol 125 MG VIAL IVP SCH ×3 (05:14→22:08)
[2020-03-15 06:10] LABS: BASOPHILS % (AUTO) 0.1 % (0.2-1.0); HEMATOCRIT 48.2 % (42.0-54.0); LYMPHOCYTES # (AUTO) 1.2 X10^3/uL (1.3-2.9); LYMPHOCYTES % (AUTO) 11.6 % (21.0-51.0); MEAN CORPUSCULAR HEMOGLOBIN 29.4 pg (27.0-34.0); MEAN CORPUSCULAR HGB CONC 33.3 g/dL (33.0-35.0); MEAN CORPUSCULAR VOLUME 88.3 fL (80.0-100.0); MONOCYTES # (AUTO) 0.4 x10^3/uL (0.3-0.8); MONOCYTES % (AUTO) 3.4 % (0.0-13.0); NEUTROPHILS # (AUTO) 8.9 x10^3/uL (2.2-4.8); NEUTROPHILS % (AUTO) 84.9 % (42.0-75.0); PLATELET COUNT 257 X10^3/uL (150.0-450.0); RED BLOOD COUNT 5.45 X10^6/uL (4.7-6.0); RED CELL DISTRIBUTION WIDTH 14.7 % (11.6-16.5); WHITE BLOOD COUNT 10.5 X10^3/uL (3.6-10.0)
[2020-03-15 06:26] LABS: ALANINE AMINOTRANSFERASE 19 Units/L (12-78); ALBUMIN 3.5 g/dL (3.4-5.0); ALKALINE PHOSPHATASE 76 Units/L (46-116); ASPARTATE AMINO TRANSFERASE 16 Units/L (15-37); BLOOD UREA NITROGEN 21 mg/dL (7-18); CALCIUM 9.2 mg/dL (8.5-10.1); CHLORIDE 102 mmol/L (98-107); COR NA(FOR HYPERGLY) 137 mmol/L (136-145); CREATININE 1.59 mg/dL (0.70-1.30); SODIUM 136 mmol/L (136-145); TOTAL PROTEIN 6.9 g/dL (6.4-8.2); eGFR NON BLACK RACES 46 (>60)
[2020-03-15] MEDS: MAXZIDE 37.5/25 MG PO SCH (08:28)
[2020-03-15] MEDS: NORVASC TAB 10 MG PO SCH (08:29)
[2020-03-15] MEDS: ASPIRIN EC 81 MG PO SCH (08:29)
[2020-03-15] MEDS: TICAGRELOR 60 MG PO SCH ×2 (08:31→20:35)
[2020-03-15] MEDS ORDERED: CATAPRES-TTS-2 TD SCH (11:00)
[2020-03-15] MEDS: ROCEPHIN VIAL 1 GRAM 1 G in NS 100 ML IV + SPIKE MINIBAG* 100 ML IV SCH (11:31)
[2020-03-15] MEDS: LIPITOR TAB 40 MG PO SCH (20:36)
[2020-03-16] MEDS: SOLU-Medrol 125 MG VIAL IVP SCH (05:17)
[2020-03-16 06:26] LABS: BASOPHILS % (AUTO) 0.2 % (0.2-1.0); HEMATOCRIT 49.8 % (42.0-54.0); HEMOGLOBIN 16.7 g/dL (13.5-18.0); LYMPHOCYTES # (AUTO) 1.1 X10^3/uL (1.3-2.9); LYMPHOCYTES % (AUTO) 6.1 % (21.0-51.0); MEAN CORPUSCULAR HEMOGLOBIN 29.5 pg (27.0-34.0); MEAN CORPUSCULAR HGB CONC 33.5 g/dL (33.0-35.0); MEAN CORPUSCULAR VOLUME 87.9 fL (80.0-100.0); MEAN PLATELET VOLUME 7.7 fL (7.4-11.0); MONOCYTES # (AUTO) 0.5 x10^3/uL (0.3-0.8); MONOCYTES % (AUTO) 3.1 % (0.0-13.0); NEUTROPHILS # (AUTO) 15.7 x10^3/uL (2.2-4.8); NEUTROPHILS % (AUTO) 90.6 % (42.0-75.0); PLATELET COUNT 289 X10^3/uL (150.0-450.0); RED BLOOD COUNT 5.67 X10^6/uL (4.7-6.0); RED CELL DISTRIBUTION WIDTH 14.9 % (11.6-16.5); WHITE BLOOD COUNT 17.3 X10^3/uL (3.6-10.0)
[2020-03-16 06:36] LABS: ALANINE AMINOTRANSFERASE 25 Units/L (12-78); ALBUMIN 3.9 g/dL (3.4-5.0); ALKALINE PHOSPHATASE 76 Units/L (46-116); ASPARTATE AMINO TRANSFERASE 22 Units/L (15-37); BLOOD UREA NITROGEN 39 mg/dL (7-18); CALCIUM 9.7 mg/dL (8.5-10.1); CARBON DIOXIDE 25.5 mmol/L (21-32); CHLORIDE 102 mmol/L (98-107); COR NA(FOR HYPERGLY) 137 mmol/L (136-145); CREATININE 2.04 mg/dL (0.70-1.30); SODIUM 136 mmol/L (136-145); TOTAL PROTEIN 7.5 g/dL (6.4-8.2); eGFR NON BLACK RACES 35 (>60)
[2020-03-16 07:11] LABS: BAND NEUTROPHILS % 2 % (0-10); PLATELET MORPHOLOGY COMMENT NORMAL (NORMAL)
[2020-03-16] MEDS ORDERED: BENADRYL INJ 50 MG VIAL IV ONE (07:54)
[2020-03-16] MEDS ORDERED: BENADRYL INJ 50 MG VIAL ONE (07:56)
[2020-03-16] MEDS: LOPRESSOR TAB 50 MG PO SCH ×2 (08:00→20:12)
[2020-03-16] MEDS: ASPIRIN EC 81 MG PO SCH (08:00)
[2020-03-16] MEDS: NORVASC TAB 10 MG PO SCH (08:01)
[2020-03-16] MEDS: MAXZIDE 37.5/25 MG PO SCH (08:01)
[2020-03-16] MEDS: TICAGRELOR 60 MG PO SCH ×2 (08:01→20:12)
[2020-03-16] MEDS ORDERED: NS 100 ML IV + SPIKE MINIBAG* 100 ML IV ONE (08:59)
[2020-03-16] MEDS: ROCEPHIN VIAL 1 GRAM 1 G in NS 100 ML IV + SPIKE MINIBAG* 100 ML IV SCH (09:38)
[2020-03-16] MEDS: NS 1000 ML 1,000 ML IV SCH ×2 (09:38→23:04)
--- NOTE | 2020-03-16 10:05 | RAD ---
HISTORYHTN URGENCYSTUDYCHEST, 1 VIEWCOMPARISONChest film March 15, 2020.FINDINGSThe trachea is midline. The cardiac silhouette is unremarkable . The lungs are clear without focal infiltrate or effusion. The bony thorax is unremarkable.IMPRESSIONNo acute cardiopulmonary disease and no change to compared to the recent film March 15, 2020.Electronically signed by: SARAH CEBALLOS (Mar 16, 2020 10:05:03)
[2020-03-16] MEDS: APRESOLINE INJ 20 MG VIAL IVP PRN (10:20)
[2020-03-16] MEDS: LOVENOX INJ 30 MG SYR SC SCH (14:14)
[2020-03-16] MEDS: NICOTINE PATCH TD SCH (20:11)
[2020-03-16] MEDS: LIPITOR TAB 40 MG PO SCH (20:12)
[2020-03-16] MEDS ORDERED: RESTORIL CAP 15 MG PO PRN (22:52)
[2020-03-16] MEDS ORDERED: RESTORIL CAP 15 MG PO ONE (22:54)
[2020-03-17] MEDS: NS 1000 ML 1,000 ML IV SCH (01:38)
[2020-03-17 06:59] LABS: ALANINE AMINOTRANSFERASE 32 Units/L (12-78); ALBUMIN 3.1 g/dL (3.4-5.0); ALKALINE PHOSPHATASE 64 Units/L (46-116); ASPARTATE AMINO TRANSFERASE 28 Units/L (15-37); BLOOD UREA NITROGEN 46 mg/dL (7-18); CALCIUM 9.2 mg/dL (8.5-10.1); CARBON DIOXIDE 26.5 mmol/L (21-32); CHLORIDE 104 mmol/L (98-107); COR CA(FOR HYPOALB) 9.9 mg/dL (8.5-10.1); CREATININE 1.79 mg/dL (0.70-1.30); SODIUM 137 mmol/L (136-145); TOTAL PROTEIN 6.3 g/dL (6.4-8.2); eGFR NON BLACK RACES 40 (>60)
[2020-03-17 07:22] LABS: BASOPHILS % (AUTO) 0.1 % (0.2-1.0); HEMOGLOBIN 15.9 g/dL (13.5-18.0); LYMPHOCYTES # (AUTO) 0.7 X10^3/uL (1.3-2.9); LYMPHOCYTES % (AUTO) 5.6 % (21.0-51.0); MEAN CORPUSCULAR HEMOGLOBIN 28.9 pg (27.0-34.0); MEAN CORPUSCULAR HGB CONC 33.1 g/dL (33.0-35.0); MEAN CORPUSCULAR VOLUME 87.5 fL (80.0-100.0); MONOCYTES # (AUTO) 1.2 x10^3/uL (0.3-0.8); MONOCYTES % (AUTO) 9.4 % (0.0-13.0); NEUTROPHILS % (AUTO) 84.9 % (42.0-75.0); PLATELET COUNT 248 X10^3/uL (150.0-450.0); RED BLOOD COUNT 5.48 X10^6/uL (4.7-6.0); RED CELL DISTRIBUTION WIDTH 14.8 % (11.6-16.5)
[2020-03-17] MEDS: MAXZIDE 37.5/25 MG PO SCH (09:21)
[2020-03-17] MEDS: LOPRESSOR TAB 50 MG PO SCH (09:21)
[2020-03-17] MEDS: ASPIRIN EC 81 MG PO SCH (09:21)
[2020-03-17] MEDS: LOVENOX INJ 30 MG SYR SC SCH (09:22)
[2020-03-17] MEDS: NORVASC TAB 10 MG PO SCH (09:22)
[2020-03-17] MEDS: NICOTINE PATCH TD SCH (09:23)
[2020-03-17] MEDS: TICAGRELOR 60 MG PO SCH (09:23)
[2020-03-17] MEDS: APRESOLINE INJ 20 MG VIAL IVP PRN (11:00)
[2020-03-17] MEDS: ROCEPHIN VIAL 1 GRAM 1 G in NS 100 ML IV + SPIKE MINIBAG* 100 ML IV SCH (11:10)
[2020-03-17 15:58] VITALS: BP 137/75
== END 2020-03-17 12:20 | disposition home health service (06) ==
LOC: MED/SURG 08:02 → ER 08:02 → MED/SURG 13:17
PROVIDERS: ADMIT Internal Medicine; ATTEND Internal Medicine
DX: R51 Headache; R06.02 Shortness of breath; Z20.828 Contact with and (suspected) exposure to other viral communicable diseases; J44.1 Chronic obstructive pulmonary disease with (acute) exacerbation; R26.89 Other abnormalities of gait and mobility; Z72.0 Tobacco use; I16.0 Hypertensive urgency; R07.89 Other chest pain; I25.10 Atherosclerotic heart disease of native coronary artery without angina pectoris; R94.31 Abnormal electrocardiogram [ECG] [EKG]; J20.9 Acute bronchitis, unspecified

== ENCOUNTER 2020-12-28 15:23 | Inpatient (IN) ==
[2020-12-28] MEDS: PULMICORT NEB TX 0.5 MG NEB SCH ×2 (17:16→20:30)
[2020-12-28] MEDS: SOLU-Medrol 40 MG VIAL IVP SCH ×2 (17:39→21:00)
[2020-12-28] MEDS: NS 1000 ML 1,000 ML IV SCH (17:39)
[2020-12-28] MEDS: DUONEB 0.5 MG/3 MG (3 mL) NEB SCH ×2 (17:44→20:29)
[2020-12-28 17:48] LABS: ABG BASE EXCESS 0.3 mmol/L (-2.0-2.0); ABG HCO3 24.6 mmol/L (22-26)
[2020-12-28 17:54] VITALS: BMI 27.1
[2020-12-28 17:56] LABS: BASOPHILS % (AUTO) 0.4 % (0.2-1.0); EOSINOPHILS # (AUTO) 0.2 x10^3/uL (0.0-0.2); EOSINOPHILS % (AUTO) 2.2 % (0.9-2.9); HEMOGLOBIN 16.5 g/dL (13.5-18.0); LYMPHOCYTES % (AUTO) 12.5 % (21.0-51.0); MEAN CORPUSCULAR HEMOGLOBIN 29.7 pg (27.0-34.0); MEAN CORPUSCULAR HGB CONC 33.7 g/dL (33.0-35.0); MEAN PLATELET VOLUME 7.6 fL (7.4-11.0); MONOCYTES # (AUTO) 0.2 x10^3/uL (0.3-0.8); MONOCYTES % (AUTO) 1.9 % (0.0-13.0); NEUTROPHILS # (AUTO) 6.5 x10^3/uL (2.2-4.8); PLATELET COUNT 268 X10^3/uL (150.0-450.0); RED BLOOD COUNT 5.57 X10^6/uL (4.7-6.0); RED CELL DISTRIBUTION WIDTH 14.4 % (11.6-16.5); WHITE BLOOD COUNT 7.8 X10^3/uL (3.6-10.0)
[2020-12-28 18:01] LABS: ALANINE AMINOTRANSFERASE 26 Units/L (12-78); ALBUMIN 3.9 g/dL (3.4-5.0); ALKALINE PHOSPHATASE 87 Units/L (46-116); ASPARTATE AMINO TRANSFERASE 19 Units/L (15-37); BLOOD UREA NITROGEN 23 mg/dL (7-18); CALCIUM 9.9 mg/dL (8.5-10.1); CARBON DIOXIDE 27.5 mmol/L (21-32); CHLORIDE 106 mmol/L (98-107); CREATININE 1.79 mg/dL (0.70-1.30); SODIUM 144 mmol/L (136-145); TOTAL PROTEIN 7.7 g/dL (6.4-8.2); eGFR NON BLACK RACES 40 (>60)
--- NOTE | 2020-12-28 19:07 | RAD ---
AP portableIndication: Dyspnea.Comparison December 13, 2020FINDINGSThere is no pneumothorax or effusion. No dense consolidation seen. Heart size is normalIMPRESSIONNo acute chest process.Electronically signed by: JANNA DILLARD (Dec 28, 2020 19:06:07)
[2020-12-28] MEDS: LOPRESSOR TAB 50 MG PO SCH (20:23)
[2020-12-29] MEDS: SOLU-Medrol 40 MG VIAL IVP SCH ×3 (05:00→22:25)
[2020-12-29] MEDS: NS 1000 ML 1,000 ML IV SCH (05:17)
--- NOTE | 2020-12-29 05:58 | RAD ---
HISTORYSOBSTUDYCHEST, 1 [id number]/2021FINDINGSThe trachea is midline. The cardiac silhouette is unremarkable . The lungs are clear without focal infiltrate or effusion. Pulmonary vasculature within normal limits. No pneumothorax. The bony thorax is unremarkable.IMPRESSIONNo acute cardiopulmonary disease.Electronically signed by: Forrest Felder (Dec 29, 2020 05:56:24)
[2020-12-29 06:01] LABS: RED CELL DISTRIBUTION WIDTH 14.3 % (11.6-16.5); WHITE BLOOD COUNT 7.2 X10^3/uL (3.6-10.0)
[2020-12-29 06:07] LABS: BASOPHILS % (AUTO) 0.1 % (0.2-1.0); EOSINOPHILS % (AUTO) 0.1 % (0.9-2.9); HEMATOCRIT 46.4 % (42.0-54.0); HEMOGLOBIN 15.6 g/dL (13.5-18.0); LYMPHOCYTES # (AUTO) 0.9 X10^3/uL (1.3-2.9); LYMPHOCYTES % (AUTO) 12.6 % (21.0-51.0); MEAN CORPUSCULAR HEMOGLOBIN 29.5 pg (27.0-34.0); MEAN CORPUSCULAR HGB CONC 33.7 g/dL (33.0-35.0); MEAN CORPUSCULAR VOLUME 87.5 fL (80.0-100.0); MEAN PLATELET VOLUME 7.6 fL (7.4-11.0); MONOCYTES # (AUTO) 0.1 x10^3/uL (0.3-0.8); MONOCYTES % (AUTO) 1.2 % (0.0-13.0); NEUTROPHILS # (AUTO) 6.2 x10^3/uL (2.2-4.8); PLATELET COUNT 256 X10^3/uL (150.0-450.0)
[2020-12-29 06:14] LABS: ALBUMIN 3.2 g/dL (3.4-5.0); CALCIUM 9.3 mg/dL (8.5-10.1); CARBON DIOXIDE 24.8 mmol/L (21-32); COR CA(FOR HYPOALB) 9.9 mg/dL (8.5-10.1); CREATININE 1.64 mg/dL (0.70-1.30); TOTAL PROTEIN 6.7 g/dL (6.4-8.2)
--- NOTE | 2020-12-29 07:07 | CT ---
HISTORYShortness of breath, elevated D-dimerSTUDYCTA chest with contrast for pulmonary embolusTechnique: Axial post-contrast images with coronal, sagittal, and 3 dimensional maximum intensity projection images obtained in evaluated. Dose reduction procedures were used with mA/kv adjusted for body size.COMPARISONNoneFINDINGSThere is no evidence for acute pulmonary thromboembolic disease. Examination of the mediastinum demonstrated no evidence for mediastinal masses, enlarged mediastinal or enlarged hilar adenopathy or significant aortic abnormality. No pleural effusions are identified. No chest wall or axillary abnormality is identified. Those portions of the upper abdominal organs visualized were within normal limits a 3.1 x 2.2 cm indeterminate left adrenal mass. MRI is recommended in order to distinguish between an atypical adenoma and a more significant neoplasm. Examination of the lung rosales demonstrated some changes of centrilobular emphysema in the upper lobes. There are no nodules, masses, alveolar infiltrates, areas of consolidation or areas of bronchiectasis identified. There is diffuse peribronchial thickening consistent with bronchitis which could be acute, chronic, or both.IMPRESSIONNo evidence for acute pulmonary thromboembolic diseaseNo acute infiltratesDiffuse peribronchial thickening consistent with bronchitis which could be acute, chronic, or both3.1 x 2.2 cm left adrenal mass which is indeterminate. MRI is recommended in order to distinguish between an atypical adenoma and a more significant neoplasm.Electronically signed by: LIN STEARNS (Dec 29, 2020 07:04:32)
--- NOTE | 2020-12-29 08:35 | DR.H&P ---
H&P - History & Physical for Day of: H&P Date: 12/28/20 - Chief Complaint Chief Complaint: SHORTNESS OF BREATH, PRODUCTIVE COUGH, SWELLING, LOW OXYGEN SATURATIONS, WEAKNESS, DECREASED APPETITE - History of Present Illness History of Present Illness: IS A 70 YEAR OLD PATIENT OF [facility]. HE APPARENTLY REPORTED TO HER OFFICE YESTERDAY FOR COMPLAINTS OF SWELLING TO FACE AND LOWER EXTREMITIES, SEVERE SHORTNESS OF BREATH, LOW OXYGEN SATURATIONS, GENERALIZED WEAKNESS, AND DECREASED APPETITE. HE ALSO REPORTED AN INTERMITTENT, PRODUCTIVE COUGH WITH WHITE SPUTUM. HE ADMITS TO HAVING SHORTNESS OF BREATH FOR THE PAST TWO MONTHS, BUT REPORTS THAT IT HAS JUST RECENTLY GOTTEN WORSE IN THE PAST 3-4 DAYS. HE IS A CURRENTLY EVERY DAY SMOKER AND HAS A PMH OF: CVA, DEMENTIA, CHF, AK, HTN, ASTHMA, COPD, GERD, KIDNEY STONES, ARTHRITIS, ANEMIA, CARDIAC STENTS, AND CABG. WHILE IN THE OFFICE, HIS OXYGEN SATURATIONS WERE REPORTEDLY 87% ON ROOM AIR. HIS PCP CONSULTED WITH US FOR DIRECT ADMISSION OF PATIENT. ON ARRIVAL TO THE HOSPITAL, VITALS WERE 98.5-67-20-95%-170/84. LABS WERE OBTAINED. ABNORMAL LAB VALUES INCLUDE THE FOLLOWING: D-DIMER 7.01, BUN 23, CREATININE 1.79, GFR 49. AN ABG WAS OBTAINED AND REVEALED: PH 7.420, PC02 38, P02 59, HC03 24.6, 02 SAT 91, FI02 21.0. BLOOD AND SPUTUM CULTURES WERE SET UP. A CHEST XRAY WAS OBTAINED. IT REVEALED: NO ACUTE CHEST PROCESS. A CHEST CTA WAS THEN OBTAINED TO RULE OUT PE AND REVEALED: No evidence for acute pulmonary thromboembolic disease. No acute infiltrates. Diffuse peribronchial thickening consistent with bronchitis which could be acute, chronic, or both. 3.1 x 2.2 cm left adrenal mass which is indeterminate. MRI is recommended in order to distinguish between an atypical adenoma and a more significant neoplasm. HE WAS STARTED ON NORMAL SALINE AT KVO, ROCEPHIN 1G IV DAILY, DUONEBS QID, PULMICORT NEBS BID, SOLU-MEDROL 80MG IV Q8H. WE WILL REVIEW HIS HOME MEDICATIONS AND RESUME APPROPRIATE. OTHERWISE, WE PLAN TO FOLLOW UP WITH AM LABS AND CONTINUE TO MONITOR. TIME SPENT ON CLINICAL ASSESSMENT, REVIEWING LABS AND IMAGING, DECISION MAKING, AND DOCUMENTATION GREATER THAN 75 MINUTES. - Past Medical History Past Medical History: Anemia, Arthritis, Asthma, CHF, COPD, Coronary Artery Disease, CVA, Dementia, GERD, Hypertension, Kidney Stones, AK - Past Surgical History Surgical History: Abdominal Surgery, Angioplasty/Stents, CABG/Valve Surgery - Family History Family Medical History: Diabetes Mellitus, Hypertension - Social History Does patient currently use any type of tobacco product: Yes Have you used tobacco products in the last 12 months: Yes Type of Tobacco Use: Cigarettes Alcohol Use: None Drug Use: None - Medications Home Medications: No Known Drug Allergies Allergy (Verified 12/13/20 14:19) CONTINUE taking the following medications losartan 25 mg PO DAILY 12/28/20 [History] - Review of Systems Constitutional: See HPI, Weakness, Malaise Eyes: No Symptoms Reported ENT: No Symptoms Reported Respiratory: Cough, Shortness of Breath, SOB with Excertion, Sputum, Wheezing Cardiovascular: Edema (LOWER EXTREMITIES AND FACE ) Gastrointestinal: No Symptoms Reported Genitourinary: No Symptoms Reported Musculoskeletal: No Symptoms Reported Skin: No Symptoms Reported Neurological: See HPI, Weakness - Physical Exam Vital Signs: Temperature 97.5 F Pulse Rate [Right Radial] 79 Pulse Rate 77 Respiratory Rate 20 Blood Pressure [Left Arm] 171/90 Blood Pressure [Right Arm] 181/85 Blood Pressure 184/97 O2 Sat by Pulse Oximetry 97 Oriented: Normal Eyes: Normal Ear: Normal Nose: Normal Throat: Normal Respiratory: Wheezes Throughout Cardiovascular: Edema (BLE 1+ PITTING EDEMA ) : Normal Auscultation: Bowel Sounds: Normal Palpation: Normal Tenderness: Normal Skin: Normal Musculoskeletal: Normal Psychiatric: Normal Mood Description: Calm Affect: Normal Speech Pattern: Clear - Assessment/Plan (1) Acute exacerbation of chronic obstructive pulmonary disease (COPD) Status: Acute Plan: ADMIT, NORMAL SALINE AT KVO, ROCEPHIN 1G IV DAILY, DUONEBS QID, PULMICORT NEBS BID, SOLU-MEDROL 80MG IV Q8H. (2) Acute bronchitis Qualifiers: Bronchitis organism: unspecified organism Qualified Code(s): J20.9 - Acute bronchitis, unspecified Status: Acute (3) Generalized weakness Status: Acute (4) SOB (shortness of breath) Status: Acute (5) Edema Qualifiers: Edema type: unspecified Qualified Code(s): R60.9 - Edema, unspecified Status: Acute (6) HTN (hypertension) Qualifiers: Hypertension type: essential hypertension Qualified Code(s): I10 - Essential (primary) hypertension Status: Chronic (7) CHF (congestive heart failure) Qualifiers: Heart failure type: unspecified Heart failure chronicity: chronic Qualified Code(s): I50.9 - Heart failure, unspecified Status: Chronic - Review H&P Reviewed: Yes Patient was examined?: Yes - Allergies Allergies/Adverse Reactions: Allergies Allergy/AdvReac Type Severity Reaction Status Date / Time No Known Drug Allergies Allergy Verified 12/13/20 14:19
[2020-12-29] MEDS: COZAAR PO SCH (09:02)
[2020-12-29] MEDS: NORVASC TAB 10 MG PO SCH (09:02)
[2020-12-29] MEDS: LOPRESSOR TAB 50 MG PO SCH ×2 (09:02→20:45)
[2020-12-29] MEDS: ROCEPHIN VIAL 1 GRAM 1 G in NS 100 ML IV + SPIKE MINIBAG* 100 ML IV SCH (09:03)
[2020-12-29] MEDS: ASPIRIN EC 81 MG PO SCH (09:03)
[2020-12-29] MEDS: PULMICORT NEB TX 0.5 MG NEB SCH ×2 (09:12→21:18)
[2020-12-29] MEDS: DUONEB 0.5 MG/3 MG (3 mL) NEB SCH ×4 (09:12→21:18)
[2020-12-29] MEDS: TORADOL 15 MG VIAL IVP SCH ×2 (09:55→17:13)
--- NOTE | 2020-12-29 10:10 | PCM.PROG ---
Progress Note - Progress Note for Day of Date of Exam: 12/29/20 - Subjective Subjective: WAS ADMITTED FOR TREATMENT OF COPD EXACERBATION WITH ACUTE BRONCHITIS, SHORTNESS OF BREATH, AND LOWER EXTREMITY EDEMA. TODAY, HE IS ALERT AND ORIENTED, LYING IN BED ON MORNING ROUNDS. HE CONTINUES WITH COMPLAINTS OF A PRODUCTIVE COUGH, SHORTNESS OF BREATH, AND WEAKNESS THIS MORNING. HE ALSO COMPLAINS OF LEFT SHOULDER PAIN. HE REPORTS HAVING ARTHRITIS IN THAT SHOULDER. ON EXAMINATION, HEART IS REGULAR IN RATE AND RHYTHM. BILATERAL LUNGS ARE NOTED TO HAVE SCATTERED WHEEZING THROUGHOUT. ABDOMEN IS ROUND, SOFT, AND NON-TENDER WITH NORMAL BOWEL SOUNDS NOTED IN ALL QUADRANTS. BILATERAL FEET ARE NOTED TO HAVE TRACE EDEMA. HER VITALS THIS MORNING ARE: 97.5-79-20-97%-171/90. LABS WERE OBTAINED. ABNORMAL LAB VALUES INCLUDE THE FOLLOWING: D-DIMER 5.58, CHLORIDE 109, BUN 24, CREATININE 1.64, GLUCOSE 159, ALBUMIN 3.2. BLOOD AND SPUTUM CULTURES ARE PENDING. CHEST XRAY REVEALED: The trachea is midline. The cardiac silhouette is unremarkable . The lungs are clear without focal infiltrate or effusion. Pulmonary vasculature within normal limits. No pneumothorax. The bony thorax is unremarkable. HE IS CURRENTLY RECEIVING: NORMAL SALINE AT KVO, ROCEPHIN 1G IV DAILY, DUONEBS QID, PULMICORT NEBS BID, SOLU-MEDROL 80MG IV Q8H, SUPPLEMENTAL OXYGEN, AND HIS HOME MEDICATIONS WERE RESUMED. WE WILL CONTINUE WITH CURRENT PLAN OF CARE TODAY AND ADD TORADOL 15MG IV Q8H. WE WILL OBTAIN A BLE VENOUS DOPPLER TO RULE OUT DVT. OTHERWISE, WE PLAN TO FOLLOW UP WITH AM LABS AND CHEST XRAY AND CONTINUE TO MONITOR. TIME SPENT ON CLINICAL ASSESSMENT, REVIEWING LABS AND IMAGING, DECISION MAKING, AND DOCUMENTATION GREATER THAN 45 MINUTES. - Past Medical Family Social History Past Med/Fam/Surg Hx: No changes since H&P Allergies: Allergies No Known Drug Allergies Allergy (Verified 12/13/20 14:19) - Review of Systems ROS: No change since H&P - Vital Signs and I&O's Vital Signs: Temperature 97.5 F Pulse Rate [Right Radial] 79 Pulse Rate 79 Respiratory Rate 20 Blood Pressure [Left Arm] 171/90 Blood Pressure [Right Arm] 181/85 Blood Pressure 184/97 O2 Sat by Pulse Oximetry 97 Intake and Output: Intake & Output 12/26/20 12/27/20 12/28/20 12/29/20 11:59 11:59 11:59 11:59 Intake Total 798 / 798 Balance 798 / 798 - Physical Exam Oriented: Normal Eyes: Normal Ear: Normal Nose: Normal Throat: Normal Respiratory: Generalized, Diminished, Wheezes Cardiovascular: Edema (BLE TRACE EDEMA ) : Normal Auscultation: Bowel Sounds: Normal Palpation: Normal Tenderness: Normal Skin: Normal Musculoskeletal: Leg, Foot, Swelling, Tender Psychiatric: Normal Mood Description: Calm Affect: Normal Speech Pattern: Clear - Laboratory and Diagnostics Result Diagrams: 12/29/20 05:33 12/29/20 05:33 Labs: 12/28/20 17:55 Sputum - Expectorated Sputum Sputum Culture - Preliminary 12/28/20 17:55 Sputum - Expectorated Sputum - Final Laboratory WBC 7.2 X10^3/uL (3.6-10.0) 12/29/20 05:33 RBC 5.30 X10^6/uL (4.7-6.0) 12/29/20 05:33 Hgb 15.6 g/dL (13.5-18.0) 12/29/20 05:33 Hct 46.4 % (42.0-54.0) 12/29/20 05:33 MCV 87.5 fL (80.0-100.0) 12/29/20 05:33 MCH 29.5 pg (27.0-34.0) 12/29/20 05:33 MCHC 33.7 g/dL (33.0-35.0) 12/29/20 05:33 RDW 14.3 % (11.6-16.5) 12/29/20 05:33 Plt Count 256 X10^3/uL (150.0-450.0) 12/29/20 05:33 MPV 7.6 fL (7.4-11.0) 12/29/20 05:33 Neut % (Auto) 86.0 % (42.0-75.0) H 12/29/20 05:33 Lymph % (Auto) 12.6 % (21.0-51.0) L 12/29/20 05:33 Baldwin % (Auto) 1.2 % (0.0-13.0) 12/29/20 05:33 Eos % (Auto) 0.1 % (0.9-2.9) L 12/29/20 05:33 Baso % (Auto) 0.1 % (0.2-1.0) L 12/29/20 05:33 Neut # (Auto) 6.2 x10^3/uL (2.2-4.8) H 12/29/20 05:33 Lymph # (Auto) 0.9 X10^3/uL (1.3-2.9) L 12/29/20 05:33 Baldwin # (Auto) 0.1 x10^3/uL (0.3-0.8) L 12/29/20 05:33 Eos # (Auto) 0.0 x10^3/uL (0.0-0.2) 12/29/20 05:33 Baso # (Auto) 0.0 X10^3/uL (0.0-0.1) 12/29/20 05:33 Absolute Nucleated RBC 0.2 /100WBC 12/29/20 05:33 D-Dimer 5.58 ug/ml (0.0-0.57) H* 12/29/20 08:55 Sample Site Right brachial 12/28/20 17:42 ABG pH 7.420 (7.35-7.45) 12/28/20 17:42 ABG pCO2 38.0 mmHg (35.0-45.0) 12/28/20 17:42 ABG pO2 59.0 mmHg (80.0-100.0) L 12/28/20 17:42 ABG HCO3 24.6 mmol/L (22-26) 12/28/20 17:42 ABG O2 Saturation 91.0 % (90-100) 12/28/20 17:42 ABG Base Excess 0.3 mmol/L (-2.0-2.0) 12/28/20 17:42 Maxwell Test Na 12/28/20 17:42 A-a Gradient 43.0 mmHg 12/28/20 17:42 FiO2 21.0 12/28/20 17:42 Blood Gas Comments Lydia well aw 12/28/20 17:42 Sodium 143 mmol/L (136-145) 12/29/20 05:33 Corrected Sodium 144 mmol/L (136-145) 12/29/20 05:33 Potassium 5.0 mmol/L (3.5-5.1) 12/29/20 05:33 Chloride 109 mmol/L (98-107) H 12/29/20 05:33 Carbon Dioxide 24.8 mmol/L (21-32) 12/29/20 05:33 BUN 24 mg/dL (7-18) H 12/29/20 05:33 Creatinine 1.64 mg/dL (0.70-1.30) H 12/29/20 05:33 Est GFR (MDRD) Af Amer 54 (>60) L 12/29/20 05:33 Est GFR (MDRD) Non-Af 44 (>60) L 12/29/20 05:33 Glucose 159 mg/dL (65-99) H 12/29/20 05:33 Calcium 9.3 mg/dL (8.5-10.1) 12/29/20 05:33 Corrected Calcium 9.9 mg/dL (8.5-10.1) 12/29/20 05:33 Total Bilirubin 0.30 mg/dL (0.2-1.0) 12/29/20 05:33 AST 17 Units/L (15-37) 12/29/20 05:33 ALT 25 Units/L (12-78) 12/29/20 05:33 Alkaline Phosphatase 75 Units/L (46-116) 12/29/20 05:33 B-Natriuretic Peptide 20.6 pg/mL (0-79) 12/28/20 17:30 Total Protein 6.7 g/dL (6.4-8.2) 12/29/20 05:33 Albumin 3.2 g/dL (3.4-5.0) L 12/29/20 05:33 Globulin 3.5 g/dL (2.5-4.5) 12/29/20 05:33 Albumin/Globulin Ratio 0.9 Ratio (1.1-2.1) L 12/29/20 05:33 - Plan (1) Acute exacerbation of chronic obstructive pulmonary disease (COPD) Status: Acute Plan: NORMAL SALINE AT KVO, ROCEPHIN 1G IV DAILY, DUONEBS QID, PULMICORT NEBS BID, SOLU-MEDROL 80MG IV Q8H, SUPPLEMENTAL OXYGEN (2) Acute bronchitis Status: Acute Qualifiers: Bronchitis organism: unspecified organism Qualified Code(s): J20.9 - Acute bronchitis, unspecified (3) Generalized weakness Status: Acute (4) SOB (shortness of breath) Status: Acute (5) Edema Status: Acute Qualifiers: Edema type: unspecified Qualified Code(s): R60.9 - Edema, unspecified (6) HTN (hypertension) Status: Chronic Qualifiers: Hypertension type: essential hypertension Qualified Code(s): I10 - Essential (primary) hypertension Plan: CONTINUE HOME MEDS (7) CHF (congestive heart failure) Status: Chronic Qualifiers: Heart failure type: unspecified Heart failure chronicity: chronic Qualified Code(s): I50.9 - Heart failure, unspecified Plan: CONTINUE HOME MEDS
[2020-12-29] MEDS: LOVENOX INJ 40 MG SYR SC SCH (11:16)
--- NOTE | 2020-12-29 12:39 | VAS ---
HISTORYBILAT LEG PAIN AND SWELLINGExtremity pain, swelling, and edemaStudy: Bilateral lower extremity Doppler venous ultrasound.TECHNIQUE: Multiple mathur scale and color flow Doppler images of the deep venous system were obtained of the [right and left] lower extremity.FINDINGS:The deep venous system of the [right and left lower extremities were] evaluated from the level of the common femoral veins through the popliteal veins, bilaterally. Normal color flow and augmentation can be observed. In addition, normal compression is seen throughout the deep venous system. [No Castillo's cyst is seen].IMPRESSION:1. Negative examination for DVT.Electronically signed by: TIFFANIE MORROW III (Dec 29, 2020 12:37:09)
[2020-12-29] MEDS: KLONOPIN TAB 1 MG PO SCH (20:44)
[2020-12-29] MEDS: LIPITOR TAB 40 MG PO SCH (21:25)
[2020-12-30] MEDS: TORADOL 15 MG VIAL IVP SCH ×4 (03:30→20:40)
[2020-12-30] MEDS: NS 1000 ML 1,000 ML IV SCH ×3 (04:36→22:28)
[2020-12-30 05:06] LABS: BASOPHILS % (AUTO) 0 % (0.2-1.0); HEMATOCRIT 44.7 % (42.0-54.0); HEMOGLOBIN 15.1 g/dL (13.5-18.0); LYMPHOCYTES # (AUTO) 0.9 X10^3/uL (1.3-2.9); LYMPHOCYTES % (AUTO) 5.6 % (21.0-51.0); MEAN CORPUSCULAR HEMOGLOBIN 29.2 pg (27.0-34.0); MEAN CORPUSCULAR HGB CONC 33.7 g/dL (33.0-35.0); MEAN CORPUSCULAR VOLUME 86.7 fL (80.0-100.0); MEAN PLATELET VOLUME 7.9 fL (7.4-11.0); MONOCYTES # (AUTO) 0.4 x10^3/uL (0.3-0.8); MONOCYTES % (AUTO) 2.5 % (0.0-13.0); NEUTROPHILS # (AUTO) 14.8 x10^3/uL (2.2-4.8); NEUTROPHILS % (AUTO) 91.9 % (42.0-75.0); PLATELET COUNT 278 X10^3/uL (150.0-450.0); RED BLOOD COUNT 5.16 X10^6/uL (4.7-6.0); RED CELL DISTRIBUTION WIDTH 14.2 % (11.6-16.5); WHITE BLOOD COUNT 16.1 X10^3/uL (3.6-10.0)
[2020-12-30 05:22] LABS: ALBUMIN 3.2 g/dL (3.4-5.0); CALCIUM 9.2 mg/dL (8.5-10.1); CARBON DIOXIDE 23.4 mmol/L (21-32); COR CA(FOR HYPOALB) 9.8 mg/dL (8.5-10.1); CREATININE 1.73 mg/dL (0.70-1.30); TOTAL PROTEIN 6.6 g/dL (6.4-8.2)
[2020-12-30 05:38] LABS: PLATELET MORPHOLOGY COMMENT NORMAL (NORMAL)
--- NOTE | 2020-12-30 06:18 | RAD ---
HISTORYSOBSTUDYCHEST, 1 [id number]/2021FINDINGSThe trachea is midline. The cardiac silhouette is unremarkable . The lungs are clear without focal infiltrate or effusion. Pulmonary vasculature within normal limits. No pneumothorax. The bony thorax is unremarkable.IMPRESSIONNo acute cardiopulmonary disease.Electronically signed by: Forrest Felder (Dec 30, 2020 06:17:36)
[2020-12-30] MEDS: SOLU-Medrol 40 MG VIAL IVP SCH ×3 (06:19→20:40)
[2020-12-30] MEDS ORDERED: TYLENOL 325 MG TAB PO PRN (07:48)
[2020-12-30] MEDS: COZAAR PO SCH (08:34)
[2020-12-30] MEDS: ROCEPHIN VIAL 1 GRAM 1 G in NS 100 ML IV + SPIKE MINIBAG* 100 ML IV SCH (08:34)
[2020-12-30] MEDS: ASPIRIN EC 81 MG PO SCH (08:34)
[2020-12-30] MEDS: NORVASC TAB 10 MG PO SCH (08:34)
[2020-12-30] MEDS: LOPRESSOR TAB 50 MG PO SCH ×2 (08:34→20:40)
[2020-12-30] MEDS: LOVENOX INJ 40 MG SYR SC SCH (08:38)
[2020-12-30] MEDS: DUONEB 0.5 MG/3 MG (3 mL) NEB SCH ×4 (09:01→20:40)
[2020-12-30] MEDS: PULMICORT NEB TX 0.5 MG NEB SCH ×2 (09:01→20:40)
--- NOTE | 2020-12-30 10:43 | PCM.PROG ---
Progress Note - Progress Note for Day of Date of Exam: 12/30/20 - Subjective Subjective: WAS ADMITTED FOR TREATMENT OF COPD EXACERBATION WITH ACUTE BRONCHITIS, SHORTNESS OF BREATH, AND LOWER EXTREMITY EDEMA. TODAY, HE IS ALERT AND ORIENTED, LYING IN BED ON MORNING ROUNDS. HE CONTINUES WITH COMPLAINTS OF A PRODUCTIVE COUGH, SHORTNESS OF BREATH, AND WEAKNESS THIS MORNING. RESPIRATORY THERAPIST REPORTS THAT HIS OXYGEN SATURATIONS ON ROOM AIR WHILE LYING IN THE BED THIS MONRING WAS 88%, PRIOR TO NEB TX. NASAL CANNUAL AT 2LPM WAS APPLIED AND SATURATIONS INCREASED TO THE 90s. PATIENT DOES NOT HAVE HOME 02. ON EXAMINATION, HEART IS REGULAR IN RATE AND RHYTHM. BILATERAL LUNGS ARE NOTED TO HAVE SCATTERED WHEEZING THROUGHOUT. ABDOMEN IS ROUND, SOFT, AND NON-TENDER WITH NORMAL BOWEL SOUNDS NOTED IN ALL QUADRANTS. BILATERAL FEET ARE NOTED TO HAVE TRACE EDEMA. HIS VITALS THIS MORNING ARE: 98.1-81-19-95%-174/85. LABS WERE OBTAINED. ABNORMAL LAB VALUES INCLUDE THE FOLLOWING: WBC INCREASED TO 16.1, CHLORIDE 109, BUN 31, CREATININE 1.73, GLUCOSE 144, ALBUMIN 3.2. BLOOD AND SPUTUM CULTURES ARE PENDING. CHEST XRAY REVEALED: The trachea is midline. The cardiac silhouette is unremarkable . The lungs are clear without focal infiltrate or effusion. Pulmonary vasculature within normal limits. No pneumothorax. The bony thorax is unremarkable. VENOUS DOPPLER WAS OBTAINED YESTERDAY TO RULE OUT DVT AND WAS NEGATIVE. HE IS CURRENTLY RECEIVING: NORMAL SALINE AT KVO, ROCEPHIN 1G IV DAILY, DUONEBS QID, PULMICORT NEBS BID, SOLU-MEDROL 80MG IV Q8H, TORADOL 15MG IV Q8H, SUPPLEMENTAL OXYGEN, AND HIS HOME MEDICATIONS WERE RESUMED. WE WILL CONTINUE WITH CURRENT PLAN OF CARE TODAY. OTHERWISE, WE PLAN TO FOLLOW UP WITH AM LABS AND CHEST XRAY AND CONTINUE TO MONITOR. TIME SPENT ON CLINICAL ASSESSMENT, REVIEWING LABS AND IMAGING, DECISION MAKING, AND DOCUMENTATION GREATER THAN 45 MINUTES. - Past Medical Family Social History Past Med/Fam/Surg Hx: No changes since H&P Allergies: Allergies No Known Drug Allergies Allergy (Verified 12/13/20 14:19) - Review of Systems ROS: No change since H&P - Vital Signs and I&O's Vital Signs: Temperature 98.1 F Pulse Rate [Right Radial] 81 Pulse Rate 74 Respiratory Rate 18 Blood Pressure [Left Arm] 174/85 Blood Pressure [Right Arm] 181/85 Blood Pressure 184/97 O2 Sat by Pulse Oximetry 93 Intake and Output: Intake & Output 12/27/20 12/28/20 12/29/20 12/30/20 11:59 11:59 11:59 11:59 Intake Total 798 / 798 2472 / 2472 Output Total 425 / 425 Balance 798 / 798 2046 / 2046 - Physical Exam Oriented: Normal Eyes: Normal Ear: Normal Nose: Normal Throat: Normal Respiratory: Generalized, Diminished, Wheezes Cardiovascular: Edema (BLE TRACE EDEMA ) : Normal Auscultation: Bowel Sounds: Normal Palpation: Normal Tenderness: Normal Skin: Normal Musculoskeletal: Leg, Foot, Swelling, Tender Psychiatric: Normal Mood Description: Calm Affect: Normal Speech Pattern: Clear, Appropriate - Laboratory and Diagnostics Result Diagrams: 12/30/20 04:15 12/30/20 04:15 Labs: 12/28/20 17:55 Sputum - Expectorated Sputum Sputum Culture - Final 12/28/20 17:55 Sputum - Expectorated Sputum - Final Laboratory WBC 16.1 X10^3/uL (3.6-10.0) H D 12/30/20 04:15 RBC 5.16 X10^6/uL (4.7-6.0) 12/30/20 04:15 Hgb 15.1 g/dL (13.5-18.0) 12/30/20 04:15 Hct 44.7 % (42.0-54.0) 12/30/20 04:15 MCV 86.7 fL (80.0-100.0) 12/30/20 04:15 MCH 29.2 pg (27.0-34.0) 12/30/20 04:15 MCHC 33.7 g/dL (33.0-35.0) 12/30/20 04:15 RDW 14.2 % (11.6-16.5) 12/30/20 04:15 Plt Count 278 X10^3/uL (150.0-450.0) 12/30/20 04:15 Plt Count Comment Adequate (ADEQUATE) 12/30/20 04:15 MPV 7.9 fL (7.4-11.0) 12/30/20 04:15 Neut % (Auto) 91.9 % (42.0-75.0) H 12/30/20 04:15 Lymph % (Auto) 5.6 % (21.0-51.0) L 12/30/20 04:15 [place] % (Auto) 2.5 % (0.0-13.0) 12/30/20 04:15 Eos % (Auto) 0.0 % (0.9-2.9) L 12/30/20 04:15 Baso % (Auto) 0 % (0.2-1.0) L 12/30/20 04:15 Neut # (Auto) 14.8 x10^3/uL (2.2-4.8) H 12/30/20 04:15 Lymph # (Auto) 0.9 X10^3/uL (1.3-2.9) L 12/30/20 04:15 [place] # (Auto) 0.4 x10^3/uL (0.3-0.8) 12/30/20 04:15 Eos # (Auto) 0.0 x10^3/uL (0.0-0.2) 12/30/20 04:15 Baso # (Auto) 0.0 X10^3/uL (0.0-0.1) 12/30/20 04:15 Absolute Nucleated RBC 0.0 /100WBC 12/30/20 04:15 Total Counted 100 12/30/20 04:15 Neutrophils % (Manual) 95 % (39-76) H 12/30/20 04:15 Lymphocytes % (Manual) 5 % (13-43) L 12/30/20 04:15 Plt Morphology Comment Normal (NORMAL) 12/30/20 04:15 RBC Morphology Normal (NORMAL) 12/30/20 04:15 D-Dimer 5.58 ug/ml (0.0-0.57) H* 12/29/20 08:55 Sample Site Right brachial 12/28/20 17:42 ABG pH 7.420 (7.35-7.45) 12/28/20 17:42 ABG pCO2 38.0 mmHg (35.0-45.0) 12/28/20 17:42 ABG pO2 59.0 mmHg (80.0-100.0) L 12/28/20 17:42 ABG HCO3 24.6 mmol/L (22-26) 12/28/20 17:42 ABG O2 Saturation 91.0 % (90-100) 12/28/20 17:42 ABG Base Excess 0.3 mmol/L (-2.0-2.0) 12/28/20 17:42 Maxwell Test Na 12/28/20 17:42 A-a Gradient 43.0 mmHg 12/28/20 17:42 FiO2 21.0 12/28/20 17:42 Blood Gas Comments Lydia well aw 12/28/20 17:42 Sodium 143 mmol/L (136-145) 12/30/20 04:15 Corrected Sodium 144 mmol/L (136-145) 12/30/20 04:15 Potassium 4.8 mmol/L (3.5-5.1) 12/30/20 04:15 Chloride 109 mmol/L (98-107) H 12/30/20 04:15 Carbon Dioxide 23.4 mmol/L (21-32) 12/30/20 04:15 BUN 31 mg/dL (7-18) H 12/30/20 04:15 Creatinine 1.73 mg/dL (0.70-1.30) H 12/30/20 04:15 Est GFR (MDRD) Af Amer 50 (>60) L 12/30/20 04:15 Est GFR (MDRD) Non-Af 42 (>60) L 12/30/20 04:15 Glucose 144 mg/dL (65-99) H 12/30/20 04:15 Calcium 9.2 mg/dL (8.5-10.1) 12/30/20 04:15 Corrected Calcium 9.8 mg/dL (8.5-10.1) 12/30/20 04:15 Total Bilirubin 0.20 mg/dL (0.2-1.0) 12/30/20 04:15 AST 15 Units/L (15-37) 12/30/20 04:15 ALT 22 Units/L (12-78) 12/30/20 04:15 Alkaline Phosphatase 74 Units/L (46-116) 12/30/20 04:15 B-Natriuretic Peptide 20.6 pg/mL (0-79) 12/28/20 17:30 Total Protein 6.6 g/dL (6.4-8.2) 12/30/20 04:15 Albumin 3.2 g/dL (3.4-5.0) L 12/30/20 04:15 Globulin 3.4 g/dL (2.5-4.5) 12/30/20 04:15 Albumin/Globulin Ratio 0.9 Ratio (1.1-2.1) L 12/30/20 04:15 - Plan (1) Acute exacerbation of chronic obstructive pulmonary disease (COPD) Status: Acute Plan: NORMAL SALINE AT KVO, ROCEPHIN 1G IV DAILY, DUONEBS QID, PULMICORT NEBS BID, SOLU-MEDROL 80MG IV Q8H, SUPPLEMENTAL OXYGEN (2) Acute bronchitis Status: Acute Qualifiers: Bronchitis organism: unspecified organism Qualified Code(s): J20.9 - Acute bronchitis, unspecified (3) Generalized weakness Status: Acute (4) SOB (shortness of breath) Status: Acute (5) Edema Status: Acute Qualifiers: Edema type: unspecified Qualified Code(s): R60.9 - Edema, unspecified (6) HTN (hypertension) Status: Chronic Qualifiers: Hypertension type: essential hypertension Qualified Code(s): I10 - Essential (primary) hypertension Plan: CONTINUE HOME MEDS (7) CHF (congestive heart failure) Status: Chronic Qualifiers: Heart failure type: unspecified Heart failure chronicity: chronic Qualified Code(s): I50.9 - Heart failure, unspecified Plan: CONTINUE HOME MEDS
[2020-12-30] MEDS: KLONOPIN TAB 1 MG PO SCH (20:40)
[2020-12-30] MEDS: LIPITOR TAB 40 MG PO SCH (20:40)
[2020-12-31] MEDS: TORADOL 15 MG VIAL IVP SCH ×3 (04:35→19:20)
[2020-12-31] MEDS: SOLU-Medrol 40 MG VIAL IVP SCH ×3 (05:12→22:12)
[2020-12-31 05:23] LABS: BASOPHILS % (AUTO) 0.1 % (0.2-1.0); HEMATOCRIT 48.1 % (42.0-54.0); HEMOGLOBIN 15.7 g/dL (13.5-18.0); LYMPHOCYTES # (AUTO) 0.4 X10^3/uL (1.3-2.9); LYMPHOCYTES % (AUTO) 3.4 % (21.0-51.0); MEAN CORPUSCULAR HGB CONC 32.7 g/dL (33.0-35.0); MEAN CORPUSCULAR VOLUME 88.6 fL (80.0-100.0); MONOCYTES # (AUTO) 0.2 x10^3/uL (0.3-0.8); MONOCYTES % (AUTO) 1.4 % (0.0-13.0); NEUTROPHILS # (AUTO) 12.5 x10^3/uL (2.2-4.8); NEUTROPHILS % (AUTO) 95.1 % (42.0-75.0); PLATELET COUNT 262 X10^3/uL (150.0-450.0); RED BLOOD COUNT 5.43 X10^6/uL (4.7-6.0); RED CELL DISTRIBUTION WIDTH 14.7 % (11.6-16.5); WHITE BLOOD COUNT 13.2 X10^3/uL (3.6-10.0)
[2020-12-31 05:51] LABS: ALANINE AMINOTRANSFERASE 25 Units/L (12-78); ALBUMIN 3.4 g/dL (3.4-5.0); ALKALINE PHOSPHATASE 82 Units/L (46-116); ASPARTATE AMINO TRANSFERASE 18 Units/L (15-37); BLOOD UREA NITROGEN 35 mg/dL (7-18); CALCIUM 9.2 mg/dL (8.5-10.1); CARBON DIOXIDE 23.6 mmol/L (21-32); CHLORIDE 109 mmol/L (98-107); COR NA(FOR HYPERGLY) 145 mmol/L (136-145); CREATININE 1.66 mg/dL (0.70-1.30); SODIUM 143 mmol/L (136-145); TOTAL PROTEIN 6.8 g/dL (6.4-8.2); eGFR NON BLACK RACES 44 (>60)
--- NOTE | 2020-12-31 06:05 | RAD ---
HISTORYShortness of breathSTUDYChest AP [id number]/2021FINDINGSThe heart is within normal limits in size. The william are normal. The lungs are well inflated and free of acute infiltrates. No pleural effusions are identified. Bony thorax is unremarkable.IMPRESSIONNo significant abnormality identifiedElectronically signed by: LIN STEARNS (Dec 31, 2020 06:03:36)
[2020-12-31 06:11] LABS: PLATELET MORPHOLOGY COMMENT NORMAL (NORMAL)
[2020-12-31] MEDS: ASPIRIN EC 81 MG PO SCH (08:27)
[2020-12-31] MEDS: LOVENOX INJ 40 MG SYR SC SCH (08:27)
[2020-12-31] MEDS: NORVASC TAB 10 MG PO SCH (08:27)
[2020-12-31] MEDS: LOPRESSOR TAB 50 MG PO SCH ×2 (08:27→20:55)
[2020-12-31] MEDS: COZAAR PO SCH (08:27)
[2020-12-31] MEDS: DUONEB 0.5 MG/3 MG (3 mL) NEB SCH ×4 (08:31→20:25)
[2020-12-31] MEDS: PULMICORT NEB TX 0.5 MG NEB SCH ×2 (08:31→20:25)
--- NOTE | 2020-12-31 10:36 | PCM.PROG ---
Progress Note - Progress Note for Day of Date of Exam: 12/31/20 - Subjective Subjective: WAS ADMITTED FOR TREATMENT OF COPD EXACERBATION WITH ACUTE BRONCHITIS, SHORTNESS OF BREATH, AND LOWER EXTREMITY EDEMA. TODAY, HE IS ALERT AND ORIENTED, LYING IN BED ON MORNING ROUNDS. HE CONTINUES WITH COMPLAINTS OF A PRODUCTIVE COUGH, SHORTNESS OF BREATH, AND WEAKNESS THIS MORNING. HE DOES ADMIT TO SLIGHT IMPROVEMENT IN SYMPTOMS. HE IS CURRENTLY ON OXYGEN VIA NASAL CANNULA AT 2 LITERS/MINUTE. HIS SPOUSE AND STAFF REPORT THAT HE WAS CONFUSED AND AGITATED THROUGHOUT THE NIGHT. HE PULLED HIS IV OUT AND GOT OUT OF BED A FEW TIMES AND WAS FOUND WALKING DOWN THE CUEVA. ON EXAMINATION, HEART IS REGULAR IN RATE AND RHYTHM. BILATERAL LUNGS ARE NOTED TO HAVE DIMINISHED LUNG SOUNDS THR OUGHOUT. ABDOMEN IS ROUND, SOFT, AND NON-TENDER WITH NORMAL BOWEL SOUNDS NOTED IN ALL QUADRANTS. BILATERAL FEET ARE NOTED TO HAVE TRACE EDEMA. HIS VITALS THIS MORNING ARE: 97.8-76-20-97%-177/82. LABS WERE OBTAINED. ABNORMAL LAB VALUES INCLUDE THE FOLLOWING: WBC 13.2, CHLORIDE 109, BUN 35, CREATININE 1.66, GLUCOSE 199, TOTAL BILI 0.10. BLOOD CULTURES ARE PENDING. CHEST XRAY REVEALED: The heart is within normal limits in size. The william are normal. The lungs are well inflated and free of acute infiltrates. No pleural effusions are identified. Bony thorax is unremarkable. HE IS CURRENTLY RECEIVING: NORMAL SALINE AT KVO, ROCEPHIN 1G IV DAILY, DUONEBS QID, PULMICORT NEBS BID, SOLU-MEDROL 40MG IV Q8H, TORADOL 15MG IV Q8H, SUPPLEMENTAL OXYGEN, AND HIS HOME MEDICATIONS WERE RESUMED. WE WILL CONTINUE WITH CURRENT PLAN OF CARE TODAY AND ADD A NICOTINE PATCH. IF HE CONTINUES TO DO WELL TODAY, HE SHOULD BE READY FOR DISCHARGE HOME WITH HOME 02 TOMORROW. OTHERWISE, WE PLAN TO FOLLOW UP WITH AM LABS AND CHEST XRAY AND CONTINUE TO MONITOR. TIME SPENT ON CLINICAL ASSESSMENT, REVIEWING LABS AND IMAGING, DECISION MAKING, AND DOCUMENTATION GREATER THAN 45 MINUTES. - Past Medical Family Social History Past Med/Fam/Surg Hx: No changes since H&P Allergies: Allergies No Known Drug Allergies Allergy (Verified 12/13/20 14:19) - Review of Systems ROS: No change since H&P - Vital Signs and I&O's Vital Signs: Temperature 97.8 F Pulse Rate [Right Radial] 76 Pulse Rate 78 Respiratory Rate 20 Blood Pressure [Left Arm] 179/85 Blood Pressure [Right Arm] 177/82 Blood Pressure 184/97 O2 Sat by Pulse Oximetry 97 Intake and Output: Intake & Output 12/28/20 12/29/20 12/30/20 12/31/20 11:59 11:59 11:59 11:59 Intake Total 798 / 798 2472 / 2472 2147 / 2147 Output Total 425 / 425 625 / 625 Balance 798 / 798 2047 / 2047 1522 / 1522 - Physical Exam Oriented: Normal Eyes: Normal Ear: Normal Nose: Normal Throat: Normal Respiratory: Generalized, Diminished, Wheezes Cardiovascular: Edema (BLE TRACE EDEMA ) : Normal Auscultation: Bowel Sounds: Normal Palpation: Normal Tenderness: Normal Skin: Normal Musculoskeletal: Leg, Foot, Swelling, Tender Psychiatric: Normal Mood Description: Calm Affect: Normal Speech Pattern: Clear, Appropriate - Laboratory and Diagnostics Result Diagrams: 12/31/20 04:10 12/31/20 04:10 Labs: 12/28/20 17:35 Blood Blood Culture - Preliminary 12/28/20 17:30 Blood Blood Culture - Preliminary 12/28/20 17:55 Sputum - Expectorated Sputum Sputum Culture - Final 12/28/20 17:55 Sputum - Expectorated Sputum - Final Laboratory WBC 13.2 X10^3/uL (3.6-10.0) H 12/31/20 04:10 RBC 5.43 X10^6/uL (4.7-6.0) 12/31/20 04:10 Hgb 15.7 g/dL (13.5-18.0) 12/31/20 04:10 Hct 48.1 % (42.0-54.0) 12/31/20 04:10 MCV 88.6 fL (80.0-100.0) 12/31/20 04:10 MCH 29.0 pg (27.0-34.0) 12/31/20 04:10 MCHC 32.7 g/dL (33.0-35.0) L 12/31/20 04:10 RDW 14.7 % (11.6-16.5) 12/31/20 04:10 Plt Count 262 X10^3/uL (150.0-450.0) 12/31/20 04:10 Plt Count Comment Adequate (ADEQUATE) 12/31/20 04:10 MPV 8.0 fL (7.4-11.0) 12/31/20 04:10 Neut % (Auto) 95.1 % (42.0-75.0) H 12/31/20 04:10 Lymph % (Auto) 3.4 % (21.0-51.0) L 12/31/20 04:10 [place] % (Auto) 1.4 % (0.0-13.0) 12/31/20 04:10 Eos % (Auto) 0.0 % (0.9-2.9) L 12/31/20 04:10 Baso % (Auto) 0.1 % (0.2-1.0) L 12/31/20 04:10 Neut # (Auto) 12.5 x10^3/uL (2.2-4.8) H 12/31/20 04:10 Lymph # (Auto) 0.4 X10^3/uL (1.3-2.9) L 12/31/20 04:10 [place] # (Auto) 0.2 x10^3/uL (0.3-0.8) L 12/31/20 04:10 Eos # (Auto) 0.0 x10^3/uL (0.0-0.2) 12/31/20 04:10 Baso # (Auto) 0.0 X10^3/uL (0.0-0.1) 12/31/20 04:10 Absolute Nucleated RBC 0.1 /100WBC 12/31/20 04:10 Total Counted 100 12/31/20 04:10 Neutrophils % (Manual) 95 % (39-76) H 12/31/20 04:10 Lymphocytes % (Manual) 5 % (13-43) L 12/31/20 04:10 Plt Morphology Comment Normal (NORMAL) 12/31/20 04:10 RBC Morphology Normal (NORMAL) 12/31/20 04:10 D-Dimer 5.58 ug/ml (0.0-0.57) H* 12/29/20 08:55 Sample Site Right brachial 12/28/20 17:42 ABG pH 7.420 (7.35-7.45) 12/28/20 17:42 ABG pCO2 38.0 mmHg (35.0-45.0) 12/28/20 17:42 ABG pO2 59.0 mmHg (80.0-100.0) L 12/28/20 17:42 ABG HCO3 24.6 mmol/L (22-26) 12/28/20 17:42 ABG O2 Saturation 91.0 % (90-100) 12/28/20 17:42 ABG Base Excess 0.3 mmol/L (-2.0-2.0) 12/28/20 17:42 Maxwell Test Na 12/28/20 17:42 A-a Gradient 43.0 mmHg 12/28/20 17:42 FiO2 21.0 12/28/20 17:42 Blood Gas Comments Lydia well aw 12/28/20 17:42 Sodium 143 mmol/L (136-145) 12/31/20 04:10 Corrected Sodium 145 mmol/L (136-145) 12/31/20 04:10 Potassium 4.7 mmol/L (3.5-5.1) 12/31/20 04:10 Chloride 109 mmol/L (98-107) H 12/31/20 04:10 Carbon Dioxide 23.6 mmol/L (21-32) 12/31/20 04:10 BUN 35 mg/dL (7-18) H 12/31/20 04:10 Creatinine 1.66 mg/dL (0.70-1.30) H 12/31/20 04:10 Est GFR (MDRD) Af Amer 53 (>60) L 12/31/20 04:10 Est GFR (MDRD) Non-Af 44 (>60) L 12/31/20 04:10 Glucose 199 mg/dL (65-99) H 12/31/20 04:10 Calcium 9.2 mg/dL (8.5-10.1) 12/31/20 04:10 Corrected Calcium TNP 12/31/20 04:10 Total Bilirubin 0.10 mg/dL (0.2-1.0) L 12/31/20 04:10 AST 18 Units/L (15-37) 12/31/20 04:10 ALT 25 Units/L (12-78) 12/31/20 04:10 Alkaline Phosphatase 82 Units/L (46-116) 12/31/20 04:10 B-Natriuretic Peptide 20.6 pg/mL (0-79) 12/28/20 17:30 Total Protein 6.8 g/dL (6.4-8.2) 12/31/20 04:10 Albumin 3.4 g/dL (3.4-5.0) 12/31/20 04:10 Globulin 3.4 g/dL (2.5-4.5) 12/31/20 04:10 Albumin/Globulin Ratio 1.0 Ratio (1.1-2.1) L 12/31/20 04:10 - Plan (1) Acute exacerbation of chronic obstructive pulmonary disease (COPD) Status: Acute Plan: NORMAL SALINE AT KVO, ROCEPHIN 1G IV DAILY, DUONEBS QID, PULMICORT NEBS BID, SOLU-MEDROL 40MG IV Q8H, SUPPLEMENTAL OXYGEN (2) Acute bronchitis Status: Acute Qualifiers: Bronchitis organism: unspecified organism Qualified Code(s): J20.9 - Acute bronchitis, unspecified (3) Generalized weakness Status: Acute (4) SOB (shortness of breath) Status: Acute (5) Edema Status: Acute Qualifiers: Edema type: unspecified Qualified Code(s): R60.9 - Edema, unspecified (6) HTN (hypertension) Status: Chronic Qualifiers: Hypertension type: essential hypertension Qualified Code(s): I10 - Essential (primary) hypertension Plan: CONTINUE HOME MEDS (7) CHF (congestive heart failure) Status: Chronic Qualifiers: Heart failure type: unspecified Heart failure chronicity: chronic Qualified Code(s): I50.9 - Heart failure, unspecified Plan: CONTINUE HOME MEDS
[2020-12-31] MEDS: ROCEPHIN VIAL 1 GRAM 1 G in NS 100 ML IV + SPIKE MINIBAG* 100 ML IV SCH (10:47)
[2020-12-31] MEDS: KLONOPIN TAB 0.5 MG PO SCH (10:47)
[2020-12-31] MEDS: NS 1000 ML 1,000 ML IV SCH ×2 (10:48→23:12)
[2020-12-31 10:56] LABS: BILIRUBIN,URINE NEGATIVE (NEGATIVE); BLOOD/HEMOGLOBIN,URINE 3+ (NEGATIVE); GLUCOSE, URINE 1+ (NEGATIVE); KETONES,URINE NEGATIVE (NEGATIVE); LEUKOCYTE ESTERASE ,URINE 1+ (NEGATIVE); NITRITES,URINE NEGATIVE (NEGATIVE); PROTEIN,URINE 4+ (NEGATIVE); UROBILINOGEN,URINE NORMAL (NORMAL)
[2020-12-31 11:20] LABS: APPEARANCE,URINE HAZY (CLEAR); COLOR,URINE YELLOW (YELLOW)
[2020-12-31 11:21] LABS: BACTERIA,URINE TRACE /HPF (NEGATIVE); SQUAMOUS EPITHELIAL CELL,UR FEW /HPF (NEGATIVE); TRANSITIONAL EPI CELLS,URINE FEW /HPF (NEGATIVE)
[2020-12-31 11:22] LABS: GRANULAR CASTS,URINE FEW /LPF (NEGATIVE); TRICHOMONAS,URINE FEW /HPF (NEGATIVE); YEAST,URINE MANY /HPF (NEGATIVE)
[2020-12-31] MEDS: KLONOPIN TAB 1 MG PO SCH (20:55)
[2020-12-31] MEDS: LIPITOR TAB 40 MG PO SCH (20:55)
[2021-01-01] MEDS: TORADOL 15 MG VIAL IVP SCH ×2 (03:12→11:54)
[2021-01-01] MEDS: SOLU-Medrol 40 MG VIAL IVP SCH (05:28)
[2021-01-01 06:06] LABS: BASOPHILS % (AUTO) 0.1 % (0.2-1.0); HEMATOCRIT 45.3 % (42.0-54.0); HEMOGLOBIN 15.1 g/dL (13.5-18.0); LYMPHOCYTES # (AUTO) 0.4 X10^3/uL (1.3-2.9); LYMPHOCYTES % (AUTO) 4.3 % (21.0-51.0); MEAN CORPUSCULAR HEMOGLOBIN 29.4 pg (27.0-34.0); MEAN CORPUSCULAR HGB CONC 33.4 g/dL (33.0-35.0); MEAN CORPUSCULAR VOLUME 88.1 fL (80.0-100.0); MONOCYTES # (AUTO) 0.3 x10^3/uL (0.3-0.8); MONOCYTES % (AUTO) 2.9 % (0.0-13.0); NEUTROPHILS # (AUTO) 9.2 x10^3/uL (2.2-4.8); NEUTROPHILS % (AUTO) 92.7 % (42.0-75.0); PLATELET COUNT 235 X10^3/uL (150.0-450.0); RED BLOOD COUNT 5.14 X10^6/uL (4.7-6.0); RED CELL DISTRIBUTION WIDTH 14.4 % (11.6-16.5); WHITE BLOOD COUNT 9.9 X10^3/uL (3.6-10.0)
[2021-01-01 06:11] LABS: ALBUMIN 2.8 g/dL (3.4-5.0); CALCIUM 8.8 mg/dL (8.5-10.1); CARBON DIOXIDE 25.3 mmol/L (21-32); COR CA(FOR HYPOALB) 9.8 mg/dL (8.5-10.1); CREATININE 1.57 mg/dL (0.70-1.30); TOTAL PROTEIN 5.9 g/dL (6.4-8.2)
--- NOTE | 2021-01-01 06:36 | RAD ---
HISTORYSOBSTUDYCHEST, 1 [id number] trachea is midline. The cardiac silhouette is unremarkable . The lungs are clear without focal infiltrate or effusion. Pulmonary vasculature within normal limits. No pneumothorax. The bony thorax is unremarkable.IMPRESSIONNo acute cardiopulmonary disease.Electronically signed by: Forrest Felder (Jan 01, 2021 06:34:10)
[2021-01-01 07:24] LABS: PLATELET MORPHOLOGY COMMENT NORMAL (NORMAL)
[2021-01-01] MEDS: PULMICORT NEB TX 0.5 MG NEB SCH (08:05)
[2021-01-01] MEDS: DUONEB 0.5 MG/3 MG (3 mL) NEB SCH ×2 (08:05→12:20)
--- NOTE | 2021-01-01 08:50 | W.DIS.FURT ---
Summary of Discharge Discharge Summary of Date Date of Exam: 01/01/21 Admission Date Date of Admission: 12/28/20 Admission Diagnosis Patient Problems (Updated 12/31/20 @ 15:02 by NIKOLAY HDZ) Acute bronchitis (Acute) J20.9 Generalized weakness (Acute) R53.1 HTN (hypertension) (Chronic) I10 Acute exacerbation of chronic obstructive pulmonary disease (COPD) (Acute) J44.1 Edema (Acute) R60.9 SOB (shortness of breath) (Acute) R06.02 CHF (congestive heart failure) (Chronic) I50.9 Hospital Course: PT IS A 70 YEAR OLD MALE ADMITTED FOR COPD EXACERBATION WITH ACUTE BRONCHITIS, SHORTNESS OF BREATH, AND LOWER EXTREMITY EDEMA. HIS HOSPITAL/TREATMENT COURSE INCLUDED: NORMAL SALINE AT KVO, ROCEPHIN 1G IV DAILY, DUONEBS QID, PULMICORT NEBS BID, SOLU-MEDROL 40MG IV Q8H, TORADOL 15MG IV Q8H, SUPPLEMENTAL OXYGEN, ALONG WITH HIS HOME MEDICATIONS. PATIENT RESPONDED WELL TO TREATMENTS. LABS/IMAGING:WBC 9.9, HGB 15.1, PLT 235, NA 146, K 4.8, CREATININE 1.57, GLUCOSE 137, CXR NO ACUTE CARDIOPULMONARY FINDINGS. PT WAS WEANED OFF SUPPLEMENTAL O2 AND IS ON ROOM AIR. DOES NOT REQUIRE ANYMORE STEROIDS OR ANTIBIOTICS. PT DISCHARGED IN STABLE CONDITION, INSTRUCTED TO FOLLOW UP WITH PCP IN 3-5 DAYS. Vital Signs: Vital Signs (72 hours) 12/29/20 09:12 12/29/20 09:55 12/29/20 10:25 Temperature Pulse Rate 79 Pulse Rate [Right Radial] Respiratory Rate 20 20 Blood Pressure [Left Arm] Blood Pressure [Right Arm] O2 Sat by Pulse Oximetry 97 12/29/20 12:00 12/29/20 16:00 12/29/20 17:13 Temperature 98.6 F 98.4 F Pulse Rate Pulse Rate [Right Radial] 73 70 Respiratory Rate 20 20 20 Blood Pressure [Left Arm] 173/82 164/81 Blood Pressure [Right Arm] O2 Sat by Pulse Oximetry 97 97 12/29/20 17:43 12/29/20 20:00 12/29/20 21:18 Temperature 98.3 F Pulse Rate 56 L Pulse Rate [Right Radial] 75 Respiratory Rate 12 20 Blood Pressure [Left Arm] 168/81 Blood Pressure [Right Arm] O2 Sat by Pulse Oximetry 95 97 12/30/20 00:00 12/30/20 03:30 12/30/20 04:00 Temperature 97.5 F L 98.0 F Pulse Rate Pulse Rate [Right Radial] 69 68 Respiratory Rate 18 14 20 Blood Pressure [Left Arm] 189/87 166/83 Blood Pressure [Right Arm] O2 Sat by Pulse Oximetry 96 95 12/30/20 07:55 12/30/20 08:35 12/30/20 09:01 Temperature 98.1 F Pulse Rate 74 Pulse Rate [Right Radial] 81 Respiratory Rate 19 20 Blood Pressure [Left Arm] 174/85 Blood Pressure [Right Arm] O2 Sat by Pulse Oximetry 95 93 L 12/30/20 09:35 12/30/20 10:30 12/30/20 12:00 Temperature 97.7 F Pulse Rate Pulse Rate [Right Radial] 64 Respiratory Rate 18 18 18 Blood Pressure [Left Arm] 169/88 Blood Pressure [Right Arm] O2 Sat by Pulse Oximetry 99 12/30/20 15:58 12/30/20 20:00 12/30/20 20:40 Temperature 97.6 F 97.6 F Pulse Rate 76 Pulse Rate [Right Radial] 74 80 Respiratory Rate 20 20 20 Blood Pressure [Left Arm] 168/79 174/79 Blood Pressure [Right Arm] O2 Sat by Pulse Oximetry 100 97 95 12/30/20 21:10 12/31/20 00:00 12/31/20 04:00 Temperature 98.1 F 97.9 F Pulse Rate Pulse Rate [Right Radial] 74 79 Respiratory Rate 20 18 18 Blood Pressure [Left Arm] 187/87 179/85 Blood Pressure [Right Arm] O2 Sat by Pulse Oximetry 97 95 12/31/20 04:35 12/31/20 08:00 12/31/20 08:28 Temperature 97.8 F Pulse Rate Pulse Rate [Right Radial] 76 Respiratory Rate 18 20 Blood Pressure [Left Arm] Blood Pressure [Right Arm] 177/82 O2 Sat by Pulse Oximetry 97 12/31/20 08:31 12/31/20 11:49 12/31/20 11:53 Temperature 98.4 F Pulse Rate 78 57 L Pulse Rate [Right Radial] 60 Respiratory Rate 20 Blood Pressure [Left Arm] 161/78 Blood Pressure [Right Arm] O2 Sat by Pulse Oximetry 97 98 97 12/31/20 16:00 12/31/20 17:52 12/31/20 20:00 Temperature 97.3 F L 97.8 F Pulse Rate 68 Pulse Rate [Right Radial] 64 74 Respiratory Rate 20 18 Blood Pressure [Left Arm] 152/82 154/80 Blood Pressure [Right Arm] O2 Sat by Pulse Oximetry 99 98 94 L 12/31/20 20:25 01/01/21 00:00 01/01/21 04:00 Temperature 97.9 F 97.6 F Pulse Rate 71 Pulse Rate [Right Radial] 68 62 Respiratory Rate 18 20 Blood Pressure [Left Arm] 172/82 178/91 Blood Pressure [Right Arm] O2 Sat by Pulse Oximetry 95 99 98 01/01/21 08:00 Temperature 97.6 F Pulse Rate Pulse Rate [Right Radial] 62 Respiratory Rate 18 Blood Pressure [Left Arm] 186/90 Blood Pressure [Right Arm] O2 Sat by Pulse Oximetry 98 Labs: Laboratory Last Values WBC 9.9 X10^3/uL (3.6-10.0) 01/01/21 04:50 RBC 5.14 X10^6/uL (4.7-6.0) 01/01/21 04:50 Hgb 15.1 g/dL (13.5-18.0) 01/01/21 04:50 Hct 45.3 % (42.0-54.0) 01/01/21 04:50 MCV 88.1 fL (80.0-100.0) 01/01/21 04:50 MCH 29.4 pg (27.0-34.0) 01/01/21 04:50 MCHC 33.4 g/dL (33.0-35.0) 01/01/21 04:50 RDW 14.4 % (11.6-16.5) 01/01/21 04:50 Plt Count 235 X10^3/uL (150.0-450.0) 01/01/21 04:50 Plt Count Comment Adequate (ADEQUATE) 01/01/21 04:50 MPV 8.0 fL (7.4-11.0) 01/01/21 04:50 Neut % (Auto) 92.7 % (42.0-75.0) H 01/01/21 04:50 Lymph % (Auto) 4.3 % (21.0-51.0) L 01/01/21 04:50 Todd % (Auto) 2.9 % (0.0-13.0) 01/01/21 04:50 Eos % (Auto) 0.0 % (0.9-2.9) L 01/01/21 04:50 Baso % (Auto) 0.1 % (0.2-1.0) L 01/01/21 04:50 Neut # (Auto) 9.2 x10^3/uL (2.2-4.8) H 01/01/21 04:50 Lymph # (Auto) 0.4 X10^3/uL (1.3-2.9) L 01/01/21 04:50 Todd # (Auto) 0.3 x10^3/uL (0.3-0.8) 01/01/21 04:50 Eos # (Auto) 0.0 x10^3/uL (0.0-0.2) 01/01/21 04:50 Baso # (Auto) 0.0 X10^3/uL (0.0-0.1) 01/01/21 04:50 Absolute Nucleated RBC 0.0 /100WBC 01/01/21 04:50 Total Counted 100 01/01/21 04:50 Neutrophils % (Manual) 94 % (39-76) H 01/01/21 04:50 Lymphocytes % (Manual) 4 % (13-43) L 01/01/21 04:50 Monocytes % (Manual) 2 % (4-9) L 01/01/21 04:50 Plt Morphology Comment Normal (NORMAL) 01/01/21 04:50 RBC Morphology Normal (NORMAL) 01/01/21 04:50 D-Dimer 5.58 ug/ml (0.0-0.57) H* 12/29/20 08:55 Sample Site Right brachial 12/28/20 17:42 ABG pH 7.420 (7.35-7.45) 12/28/20 17:42 ABG pCO2 38.0 mmHg (35.0-45.0) 12/28/20 17:42 ABG pO2 59.0 mmHg (80.0-100.0) L 12/28/20 17:42 ABG HCO3 24.6 mmol/L (22-26) 12/28/20 17:42 ABG O2 Saturation 91.0 % (90-100) 12/28/20 17:42 ABG Base Excess 0.3 mmol/L (-2.0-2.0) 12/28/20 17:42 Maxwell Test Na 12/28/20 17:42 A-a Gradient 43.0 mmHg 12/28/20 17:42 FiO2 21.0 12/28/20 17:42 Blood Gas Comments Lydia well aw 12/28/20 17:42 Sodium 146 mmol/L (136-145) H 01/01/21 04:50 Corrected Sodium 147 mmol/L (136-145) H 01/01/21 04:50 Potassium 4.8 mmol/L (3.5-5.1) 01/01/21 04:50 Chloride 113 mmol/L (98-107) H 01/01/21 04:50 Carbon Dioxide 25.3 mmol/L (21-32) 01/01/21 04:50 BUN 36 mg/dL (7-18) H 01/01/21 04:50 Creatinine 1.57 mg/dL (0.70-1.30) H 01/01/21 04:50 Est GFR (MDRD) Af Amer 56 (>60) L 01/01/21 04:50 Est GFR (MDRD) Non-Af 47 (>60) L 01/01/21 04:50 Glucose 137 mg/dL (65-99) H 01/01/21 04:50 Calcium 8.8 mg/dL (8.5-10.1) 01/01/21 04:50 Corrected Calcium 9.8 mg/dL (8.5-10.1) 01/01/21 04:50 Total Bilirubin 0.10 mg/dL (0.2-1.0) L 01/01/21 04:50 AST 16 Units/L (15-37) 01/01/21 04:50 ALT 37 Units/L (12-78) 01/01/21 04:50 Alkaline Phosphatase 72 Units/L (46-116) 01/01/21 04:50 B-Natriuretic Peptide 20.6 pg/mL (0-79) 12/28/20 17:30 Total Protein 5.9 g/dL (6.4-8.2) L 01/01/21 04:50 Albumin 2.8 g/dL (3.4-5.0) L 01/01/21 04:50 Globulin 3.1 g/dL (2.5-4.5) 01/01/21 04:50 Albumin/Globulin Ratio 0.9 Ratio (1.1-2.1) L 01/01/21 04:50 Specimen Type Clean catch urine 12/31/20 10:47 Urine Color Yellow (YELLOW) 12/31/20 10:47 Urine Appearance Hazy (CLEAR) 12/31/20 10:47 Urine pH 6.0 (5.0 - 8.0) 12/31/20 10:47 Ur Specific [place] 1.020 (1.000-1.030) 12/31/20 10:47 Urine Protein 4+ (NEGATIVE) 12/31/20 10:47 Urine Glucose (UA) 1+ (NEGATIVE) 12/31/20 10:47 Urine Ketones Negative (NEGATIVE) 12/31/20 10:47 Urine Occult Blood 3+ (NEGATIVE) 12/31/20 10:47 Urine Nitrite Negative (NEGATIVE) 12/31/20 10:47 Urine Bilirubin Negative (NEGATIVE) 12/31/20 10:47 Urine Urobilinogen Normal (NORMAL) 12/31/20 10:47 Ur Leukocyte Esterase 1+ (NEGATIVE) 12/31/20 10:47 Urine RBC 10-20 /HPF (0-3) A 12/31/20 10:47 Urine WBC 5-10 /HPF (0-5) A 12/31/20 10:47 Ur Squamous Epith Cells Few /HPF (NEGATIVE) 12/31/20 10:47 Ur Transition Epith Cell Few /HPF (NEGATIVE) 12/31/20 10:47 Urine Bacteria Trace /HPF (NEGATIVE) 12/31/20 10:47 Granular Casts Few /LPF (NEGATIVE) 12/31/20 10:47 Urine Trichomonas Few /HPF (NEGATIVE) 12/31/20 10:47 Urine Yeast Many /HPF (NEGATIVE) 12/31/20 10:47 Ur Culture Indicated? No/not indicated 12/31/20 10:47 Reason For Visit: ELEVATED WHITE COUNT,FAILED TO IMPROVE PAST 48 ANTHONY Discharge Date Discharge Date: 01/01/21 Discharge Diagnosis All Active Problems (Updated 12/31/20 @ 15:02 by NIKOLAY HDZ) Elevated BP without diagnosis of hypertension (Acute) Acute bronchitis (Acute) Chest pain (Acute) Altered mental status (Acute) Generalized weakness (Acute) Headache (Acute) Ataxia (Acute) HTN (hypertension) (Chronic) Acute exacerbation of chronic obstructive pulmonary disease (COPD) (Acute) Hypertensive urgency, malignant (Acute) Coronary artery disease (Acute) Tobacco user (Acute) Abnormal kidney function (Acute) Hypertensive urgency (Acute) Burn (Acute) Chest pain (Acute) Headache (Acute) Edema (Acute) SOB (shortness of breath) (Acute) CHF (congestive heart failure) (Chronic) Plan of Treatment: Continue with present treatment and follow up plan. Pt is to keep follow up appointment as instructed and take medications as ordered. Discharge Medications Discharge Medications: No Known Drug Allergies Allergy (Verified 12/13/20 14:19) CONTINUE taking the following medications losartan 25 mg PO DAILY 12/28/20 [History] New Prescriptions albuterol sulfate 2.5 mg INHALATION TID PRN 30 Days #90 ml 01/01/21 [Rx] Follow up and Referral Follow Up: 1 Week Discharge Disposition Discharge Disposition: HOME Discharge Condition: STABLE Discharge Plan Discharge Plan Hospital Course: PT IS A 70 YEAR OLD MALE ADMITTED FOR COPD EXACERBATION WITH ACUTE BRONCHITIS, SHORTNESS OF BREATH, AND LOWER EXTREMITY EDEMA. HIS HOSPITAL/TREATMENT COURSE INCLUDED: NORMAL SALINE AT KVO, ROCEPHIN 1G IV DAILY, DUONEBS QID, PULMICORT NEBS BID, SOLU-MEDROL 40MG IV Q8H, TORADOL 15MG IV Q8H, SUPPLEMENTAL OXYGEN, ALONG WITH HIS HOME MEDICATIONS. PATIENT RESPONDED WELL TO TREATMENTS. LABS/IMAGING:WBC 9.9, HGB 15.1, PLT 235, NA 146, K 4.8, CREATININE 1.57, GLUCOSE 137, CXR NO ACUTE CARDIOPULMONARY FINDINGS. PT WAS WEANED OFF SUPPLEMENTAL O2 AND IS ON ROOM AIR. DOES NOT REQUIRE ANYMORE STEROIDS OR ANTIBIOTICS. PT DISCHARGED IN STABLE CONDITION, INSTRUCTED TO FOLLOW UP WITH PCP IN 3-5 DAYS. Patient Disposition: 01 HOME, SELF-CARE Condition: Stable Health Concerns: Post Hospitalization: new medications and changes needed to prevent readmission or further decline. Pt educated and given instructions on all concerns. Plan of Treatment: Continue with present treatment and follow up plan. Pt is to keep follow up appointment as instructed and take medications as ordered. Prescriptions: Continued atorvastatin 40 MG tablet 40 mg PO HS RF: 0 aspirin 81 MG tablet,delayed release (DR/EC) 81 mg PO DAILY RF: 0 clonazepam 2 MG tablet 2 mg PO HS RF: 0 Brilinta 60 mg Tablet 60 mg PO BID RF: 0 amlodipine 10 mg tablet 10 mg PO DAILY RF: 0 metoprolol tartrate 50 mg tablet 50 mg PO BID RF: 0 ergocalciferol (vitamin D2) [Vitamin D2] 50,000 unit Capsule 50,000 unit PO 2XW RF: 0 losartan 25 mg Tablet 25 mg PO DAILY RF: 0 albuterol sulfate 2.5 mg /3 mL (0.083 %) solution for nebulization 2.5 mg inhalation TID PRN (Reason: Shortness Of Breath) 30 Days Qty: 90 RF: 0 Follow ups/Referrals Follow ups/Referrals: Jed Alcala [Primary Care Provider] - 1 WEEK Instructions Stand Alone Forms: Excuse From Work or School, Precautions for COVID19, Patient Portal, Social Distancing
[2021-01-01] MEDS: LOVENOX INJ 40 MG SYR SC SCH (09:49)
[2021-01-01] MEDS: ASPIRIN EC 81 MG PO SCH (09:49)
[2021-01-01] MEDS: ROCEPHIN VIAL 1 GRAM 1 G in NS 100 ML IV + SPIKE MINIBAG* 100 ML IV SCH (09:51)
[2021-01-01] MEDS: LOPRESSOR TAB 50 MG PO SCH (09:51)
[2021-01-01] MEDS: COZAAR PO SCH (09:51)
[2021-01-01] MEDS: KLONOPIN TAB 0.5 MG PO SCH (09:51)
[2021-01-01] MEDS: NORVASC TAB 10 MG PO SCH (09:52)
[2021-01-01 13:50] VITALS: BP 171/82
== END 2021-01-01 14:30 | disposition home or self-care (01) | DRG 192 ==
LOC: MED/SURG
PROVIDERS: ADMIT Internal Medicine; ATTEND Internal Medicine
DX: J44.1 Chronic obstructive pulmonary disease with (acute) exacerbation; R60.0 Localized edema; J20.8 Acute bronchitis due to other specified organisms; R53.1 Weakness; I50.9 Heart failure, unspecified; I11.0 Hypertensive heart disease with heart failure; D72.828 Other elevated white blood cell count

== ENCOUNTER 2022-12-18 14:29 | Inpatient (IN) ==
[2022-12-18] MEDS ORDERED: ZOFRAN INJ 4 MG VIAL IVP ONE (14:47)
[2022-12-18] MEDS ORDERED: NS 1,000 ML IV 1,000 ML IV ONE (14:47)
[2022-12-18] MEDS ORDERED: MORPHINE SULFATE INJ 4 MG IVP ONE (14:47)
[2022-12-18] MEDS ORDERED: MORPHINE SULFATE INJ 4 MG ONE (14:55)
[2022-12-18] MEDS ORDERED: ZOFRAN INJ 4 MG VIAL ONE (14:55)
[2022-12-18] MEDS ORDERED: NS 1,000 ML IV 1,000 ML ONE (14:55)
--- NOTE | 2022-12-18 14:58 | DR.ABDMALE ---
HPI Time seen Time Seen by Provider: 12/18/22 14:42 Complaint Chief Complaint Doctors Comments: 72 y/o male presents for evaluation. Having abdominal pain, across the lower abdomen. Started about 6 days ago, has been constant, is worsening. Radiates to the back. Associated with nausea, vomiting. Worse with moving, palpation. Nothing makes it better. Having increasing weakness. Has not been eating or drinking well. Reviewed Nurses Notes Review: Yes Source History provided by:: Pt, spouse PMH PMH Past Medical History: Anemia, Arthritis, Asthma, CHF, COPD, Coronary Artery Disease, CVA, Dementia, Dyslipidemia, GERD, Hypertension, Kidney Stones and [place] Past Surgical History: Yes Surgical History: Abdominal Surgery, Angioplasty/Stents and CABG/Valve Surgery Family History Family Medical History: Diabetes Mellitus and Hypertension Social History Does patient currently use any type of tobacco product: Yes Alcohol Use: None Do you use any recreational Drugs:: No ROS Review of Systems Constitutional: Weakness Eyes: No Symptoms Reported ENTM: No Symptoms Reported Respiratoy: No Symptoms Reported Gastrointestinal/Abdominal: Abdominal Pain, Nausea and Vomiting Genitourinary: No Symptoms Reported Neurological: Weakness Musculoskeletal: No Symptoms Reported Integumentary: No Symptoms Reported Hematologic/Lymphatic: No Symptoms Reported Psychiatric: No Symptoms Reported All Other Systems: Reviewed and Negative PE Vital Signs Vital Signs: Temp Pulse Resp BP BP BP Pulse Ox 01/01/21 08:05 12/31/20 08:28 177/82 12/18/22 18:45 94 H 23 12/18/22 18:30 96 H 13 12/18/22 18:30 124/62 12/18/22 18:15 96 H 13 97 12/18/22 18:00 96 H 13 99 12/18/22 18:00 126/65 12/18/22 17:45 96 H 15 12/18/22 17:36 146/91 12/18/22 17:36 101 H 20 12/18/22 17:30 99 H 25 H 98 12/18/22 17:15 99 H 19 99 12/18/22 17:00 97 H 17 95 12/18/22 17:00 149/67 12/18/22 16:45 93 H 93 L 12/18/22 16:30 94 H 93 L 12/18/22 16:30 142/65 12/18/22 16:15 89 95 12/18/22 16:00 90 95 12/18/22 16:00 138/60 12/18/22 15:52 93 H 95 12/18/22 15:52 140/65 12/18/22 15:51 92 H 94 L 12/18/22 15:30 87 93 L 12/18/22 15:15 87 94 L 12/18/22 15:01 92 H 97 12/18/22 15:03 24 12/18/22 15:02 24 12/18/22 14:35 98.1 F 100 H 26 H 126/71 96 12/14/21 10:00 159/85 12/13/21 19:06 146/80 O2 Del Method FiO2 01/01/21 08:05 28 12/31/20 08:28 12/18/22 18:45 12/18/22 18:30 12/18/22 18:30 12/18/22 18:15 12/18/22 18:00 12/18/22 18:00 12/18/22 17:45 12/18/22 17:36 12/18/22 17:36 12/18/22 17:30 12/18/22 17:15 12/18/22 17:00 12/18/22 17:00 12/18/22 16:45 12/18/22 16:30 12/18/22 16:30 12/18/22 16:15 12/18/22 16:00 12/18/22 16:00 12/18/22 15:52 12/18/22 15:52 12/18/22 15:51 12/18/22 15:30 12/18/22 15:15 12/18/22 15:01 12/18/22 15:03 12/18/22 15:02 12/18/22 14:35 Room Air 12/14/21 10:00 12/13/21 19:06 General General Appearance: Alert and In No Apparent Distress Eyes Eye exam: PERRL and EOMI ENT ENT Exam: Mucous Membranes Moist Neck Neck Exam: Normal Inspection Respiratory Respiratory Exam: Normal Lung Sounds Bilat; negative Accessory Muscle Use or Respiratory Distress Cardiovascular Cardiovascular Exam: Regular Rate, Normal Rhythm and Normal Heart Sounds Abdominal Exam Abdominal Exam: Soft, Distention, Tenderness (RLQ > LLQ, with guarding, degree of rebound.) and Hypoactive Bowel Sounds Back Back Exam: Normal Inspection Extremeties Extremities Exam: Normal Inspection; negative Edema Neurologic Neurological Exam: Alert and CN II-XII Intact; negative Motor Sensory Deficit Skin Skin Exam: Warm and Dry COURSE Treatment Treatment: 72 y/o male with 6 days of abdominal pain, located across lower abdomen. W/u initiated. Pt given IV fluids, IV zofran. 1728 - Labs show acute renal injury, Cr 3.76, BUN 112. Lactic acid elevated to 2.2. CT abd/pelvis, pplain, obtained. + distended fluid filled loops of small bowel, with multiple air fluid levels c/w SBO. Consulted with Dr Ko, he will come see the pt. Will admit to medicine, call put out to Dr Alcala. Will have nurses insert NG and Jimenez. Pt and spouse informed of current diagnoses. 1807 - discussed with Dr Alcala, accepts the pt for admission. ROR Labs Reviewed Laboratory Results Reviewed?: Yes Result Diagrams: 12/18/22 14:55 12/18/22 14:55 Laboratory: WBC 12.7 X10^3/uL (3.6-10.0) H 12/18/22 14:55 RBC 4.60 X10^6/uL (4.7-6.0) L 12/18/22 14:55 Hgb 12.9 g/dL (13.5-18.0) L 12/18/22 14:55 Hct 39.4 % (42.0-54.0) L 12/18/22 14:55 MCV 85.6 fL (80.0-100.0) 12/18/22 14:55 MCH 28.1 pg (27.0-34.0) 12/18/22 14:55 MCHC 32.8 g/dL (33.0-35.0) L 12/18/22 14:55 RDW 16.1 % (11.6-16.5) 12/18/22 14:55 Plt Count 241 X10^3/uL (150.0-450.0) 12/18/22 14:55 MPV 8.0 fL (7.4-11.0) 12/18/22 14:55 Neut % (Auto) 83.1 % (42.0-75.0) H 12/18/22 14:55 Lymph % (Auto) 6.3 % (21.0-51.0) L 12/18/22 14:55 [place] % (Auto) 10.1 % (0.0-13.0) 12/18/22 14:55 Eos % (Auto) 0.4 % (0.9-2.9) L 12/18/22 14:55 Baso % (Auto) 0.1 % (0.2-1.0) L 12/18/22 14:55 Neut # (Auto) 10.6 x10^3/uL (2.2-4.8) H 12/18/22 14:55 Lymph # (Auto) 0.8 X10^3/uL (1.3-2.9) L 12/18/22 14:55 [place] # (Auto) 1.3 x10^3/uL (0.3-0.8) H 12/18/22 14:55 Eos # (Auto) 0.1 x10^3/uL (0.0-0.2) 12/18/22 14:55 Baso # (Auto) 0.0 X10^3/uL (0.0-0.1) 12/18/22 14:55 Absolute Nucleated RBC 0.0 /100WBC 12/18/22 14:55 Sodium 140 mmol/L (136-145) 12/18/22 14:55 Corrected Sodium TNP 12/18/22 14:55 Potassium 5.2 mmol/L (3.5-5.1) H 12/18/22 14:55 Chloride 102 mmol/L (98-107) 12/18/22 14:55 Carbon Dioxide 30.4 mmol/L (21-32) 12/18/22 14:55 BUN 112 mg/dL (7-18) H 12/18/22 14:55 Creatinine 3.76 mg/dL (0.70-1.30) H 12/18/22 14:55 Est GFR (MDRD) Af Amer 20 (>60) L 12/18/22 14:55 Est GFR (MDRD) Non-Af 17 (>60) L 12/18/22 14:55 Glucose 85 mg/dL (65-99) 12/18/22 14:55 Lactic Acid 1.5 mmol/L (0.4-2.0) 12/18/22 18:24 Calcium 11.4 mg/dL (8.5-10.1) H 12/18/22 14:55 Corrected Calcium 12.0 mg/dL (8.5-10.1) H 12/18/22 14:55 Total Bilirubin 0.60 mg/dL (0.2-1.0) 12/18/22 14:55 AST 22 Units/L (15-37) 12/18/22 14:55 ALT 37 Units/L (12-78) 12/18/22 14:55 Alkaline Phosphatase 50 Units/L (46-116) 12/18/22 14:55 Total Protein 6.0 g/dL (6.4-8.2) L 12/18/22 14:55 Albumin 3.3 g/dL (3.4-5.0) L 12/18/22 14:55 Globulin 2.7 g/dL (2.5-4.5) 12/18/22 14:55 Albumin/Globulin Ratio 1.2 Ratio (1.1-2.1) 12/18/22 14:55 Lipase 53 Units/L (73-393) L 12/18/22 14:55 Specimen Type Clean catch urine 12/18/22 15:46 Urine Color Yellow (YELLOW) 12/18/22 15:46 Urine Appearance Clear (CLEAR) 12/18/22 15:46 Urine pH 5.0 (5.0 - 8.0) 12/18/22 15:46 Ur Specific [place] 1.020 (1.000-1.030) 12/18/22 15:46 Urine Protein 2+ (NEGATIVE) 12/18/22 15:46 Urine Glucose (UA) Negative (NEGATIVE) 12/18/22 15:46 Urine Ketones 1+ (NEGATIVE) 12/18/22 15:46 Urine Blood 1+ (NEGATIVE) 12/18/22 15:46 Urine Nitrite Negative (NEGATIVE) 12/18/22 15:46 Urine Bilirubin Negative (NEGATIVE) 12/18/22 15:46 Urine Urobilinogen Normal (NORMAL) 12/18/22 15:46 Ur Leukocyte Esterase 1+ (NEGATIVE) 12/18/22 15:46 Urine RBC 0-2 /HPF (0-3) 12/18/22 15:46 Urine WBC 3-5 /HPF (0-5) 12/18/22 15:46 Ur Squamous Epith Cells Rare /HPF (NEGATIVE) 12/18/22 15:46 Urine Bacteria Negative /HPF (NEGATIVE) 12/18/22 15:46 Ur Culture Indicated? No/not indicated 12/18/22 15:46 Abnormal kidney numbers - Cr 3.76, BUN 112, LA 2.2. Opioid Opioid Risk Tool Age (Isai box if 16-45): No History of Preadolescent Sexual Abuse: No Total: 0 Total Score Risk Category: Low Risk Copyright: Galdino PERALES predicting aberrant behaviors Discharge Plan Diagnosis Discharge Problem: Small bowel obstruction, Acute nontraumatic kidney injury Discharge Plan Patient Disposition: 09 ADMITTED INPATIENT Condition: Stable Orders to Discharge Patient Discharge Orders: Transfer (Routine); Ordered 12/18/22 Ordered By: William Levy
[2022-12-18 15:13] LABS: HEMATOCRIT 39.4 % (42.0-54.0)
[2022-12-18 15:17] LABS: BASOPHILS % (AUTO) 0.1 % (0.2-1.0); EOSINOPHILS # (AUTO) 0.1 x10^3/uL (0.0-0.2); EOSINOPHILS % (AUTO) 0.4 % (0.9-2.9); HEMOGLOBIN 12.9 g/dL (13.5-18.0); LYMPHOCYTES # (AUTO) 0.8 X10^3/uL (1.3-2.9); LYMPHOCYTES % (AUTO) 6.3 % (21.0-51.0); MEAN CORPUSCULAR HEMOGLOBIN 28.1 pg (27.0-34.0); MEAN CORPUSCULAR HGB CONC 32.8 g/dL (33.0-35.0); MEAN CORPUSCULAR VOLUME 85.6 fL (80.0-100.0); MONOCYTES # (AUTO) 1.3 x10^3/uL (0.3-0.8); MONOCYTES % (AUTO) 10.1 % (0.0-13.0); NEUTROPHILS # (AUTO) 10.6 x10^3/uL (2.2-4.8); NEUTROPHILS % (AUTO) 83.1 % (42.0-75.0); PLATELET COUNT 241 X10^3/uL (150.0-450.0); RED CELL DISTRIBUTION WIDTH 16.1 % (11.6-16.5); WHITE BLOOD COUNT 12.7 X10^3/uL (3.6-10.0)
[2022-12-18 15:25] LABS: ALANINE AMINOTRANSFERASE 37 Units/L (12-78); ALBUMIN 3.3 g/dL (3.4-5.0); ALKALINE PHOSPHATASE 50 Units/L (46-116); ASPARTATE AMINO TRANSFERASE 22 Units/L (15-37); BLOOD UREA NITROGEN 112 mg/dL (7-18); CALCIUM 11.4 mg/dL (8.5-10.1); CARBON DIOXIDE 30.4 mmol/L (21-32); CHLORIDE 102 mmol/L (98-107); CREATININE 3.76 mg/dL (0.70-1.30); GLUCOSE 85 mg/dL (65-99); LIPASE 53 Units/L (73-393); POTASSIUM 5.2 mmol/L (3.5-5.1); SODIUM 140 mmol/L (136-145); eGFR NON BLACK RACES 17 (>60)
[2022-12-18 15:28] LABS: LACTIC ACID 2.2 mmol/L (0.4-2.0)
[2022-12-18 16:04] LABS: BILIRUBIN,URINE NEGATIVE (NEGATIVE); BLOOD/HEMOGLOBIN,URINE 1+ (NEGATIVE); GLUCOSE, URINE NEGATIVE (NEGATIVE); KETONES,URINE 1+ (NEGATIVE); LEUKOCYTE ESTERASE ,URINE 1+ (NEGATIVE); NITRITES,URINE NEGATIVE (NEGATIVE); PROTEIN,URINE 2+ (NEGATIVE); UROBILINOGEN,URINE NORMAL (NORMAL)
[2022-12-18 16:09] LABS: APPEARANCE,URINE CLEAR (CLEAR); BACTERIA,URINE NEGATIVE /HPF (NEGATIVE); COLOR,URINE YELLOW (YELLOW); RBC,URINE 0-2 /HPF (0-3); SQUAMOUS EPITHELIAL CELL,UR RARE /HPF (NEGATIVE)
--- NOTE | 2022-12-18 16:52 | CT ---
HISTORYpain across abd, r/o free airSTUDYABDOMEN/PELVIS W/O CONCOMPARISONNone availableTECHNIQUEAxial images through the abdomen and pelvis were performed without contrast. CT scan was performed following ALARA (as low as reasonable Achievable) protocol. Coronal and sagittal reformatted images were performed.FINDINGSThe lung bases are clear.The liver, spleen and pancreas demonstrate no focal abnormalities, no gallstones no intra or extrahepatic biliary dilatation.The stomach is no dilated. No adrenal masses. There are bilateral normal sized kidneys without hydronephrosisThere is an exophytic upper pole right renal lesion measuring 1.7 centimeters with Hounsfield units of 19 nonspecific.There is no evidence of free airThere is diffuse abnormal dilated small-bowel loops with multiple air-fluid levels, the distal ileal loops are decompressed, findings are consistent with high-grade small-bowel obstructionThe colon is decompressed. The transition is no well seen; however a close loop obstruction is not excludedNo secondary signs of appendicitis. There is an anterior ventral hernia repair with some edge no evidence of recurrence.Pelvis: The urinary bladder is unremarkable, there is calcification in the prostate, no evidence of diverticulitis.No free fluid in the cul de sacBone windows no evidence of aggressive bone lesions. No acute fractures.IMPRESSIONSevere dilatation of the proximal small bowel loops with decompressed distal ileal loops, suspicious for high-grade small-bowel obstruction, surgical consultation is recommendedNo evidence of free air.Electronically signed by: Liliana Archuleta (Dec 18, 2022 16:51:33)
--- NOTE | 2022-12-18 18:14 | RAD ---
EXAM: CHEST X-RAYHISTORY: NG tube placement verification.TECHNIQUE: AP chest x-ray dated December 18, 2022 at 5:51 PM.COMPARISON: None available.FINDINGS:A nasogastric tube is noted in situ with the distal tip (coursing cephalad) within the lateral aspect of the gallbladder fundus.The heart size and mediastinum are within normal limits. The lung rosales and costophrenic angles are clear. There is no acute parenchymal infiltrate, pleural effusion, or pneumothorax seen. The visualized bony structures are within normal limits.IMPRESSION:1. No evidence for acute cardiopulmonary disease seen.2. A nasogastric tube is noted in situ with the distal tip (coursing cephalad) within the lateral aspect of the gallbladder fundus.Electronically signed by: Rosey Castellanos (Dec 18, 2022 18:13:00)
[2022-12-18] MEDS ORDERED: ZOSYN VIAL 3.375 GRAMS 3.375 G in NS 100 ML IV 100 ML IV ONE (18:34)
[2022-12-18] MEDS ORDERED: NS 100 ML IV 100 ML ONE (18:36)
[2022-12-18] MEDS ORDERED: ZOSYN VIAL 3.375 GRAMS IV ONE (18:36)
[2022-12-18] MEDS ORDERED: ZOFRAN INJ 4 MG VIAL IVP PRN (21:02)
[2022-12-18] MEDS: D5 1/2 NS 1,000 ML 1,000 ML IV SCH (22:11)
[2022-12-19] MEDS ORDERED: NS 1,000 ML IV 1,000 ML IV ONE ×2 (00:07→07:56)
[2022-12-19] MEDS: D5 1/2 NS 1,000 ML 1,000 ML IV SCH ×5 (05:21→21:56)
[2022-12-19] MEDS: ZOSYN VIAL 3.375 GRAMS 3.375 G in NS 100 ML IV 100 ML IV SCH ×3 (05:22→21:11)
[2022-12-19 06:31] LABS: BASOPHILS % (AUTO) 0.1 % (0.2-1.0); EOSINOPHILS # (AUTO) 0.1 x10^3/uL (0.0-0.2); EOSINOPHILS % (AUTO) 0.9 % (0.9-2.9); HEMATOCRIT 35.3 % (42.0-54.0); HEMOGLOBIN 11.7 g/dL (13.5-18.0); LYMPHOCYTES # (AUTO) 0.6 X10^3/uL (1.3-2.9); LYMPHOCYTES % (AUTO) 6.3 % (21.0-51.0); MEAN CORPUSCULAR HEMOGLOBIN 28.4 pg (27.0-34.0); MEAN CORPUSCULAR HGB CONC 33.1 g/dL (33.0-35.0); MEAN CORPUSCULAR VOLUME 85.7 fL (80.0-100.0); MEAN PLATELET VOLUME 8.2 fL (7.4-11.0); MONOCYTES # (AUTO) 1.1 x10^3/uL (0.3-0.8); MONOCYTES % (AUTO) 10.9 % (0.0-13.0); NEUTROPHILS % (AUTO) 81.8 % (42.0-75.0); PLATELET COUNT 221 X10^3/uL (150.0-450.0); RED BLOOD COUNT 4.12 X10^6/uL (4.7-6.0); WHITE BLOOD COUNT 9.8 X10^3/uL (3.6-10.0)
[2022-12-19 06:40] LABS: BLOOD UREA NITROGEN 92 mg/dL (7-18); CARBON DIOXIDE 32.2 mmol/L (21-32); CHLORIDE 104 mmol/L (98-107); GLUCOSE 97 mg/dL (65-99); POTASSIUM 4.6 mmol/L (3.5-5.1); SODIUM 142 mmol/L (136-145); eGFR NON BLACK RACES 21 (>60)
[2022-12-19 06:41] LABS: ALANINE AMINOTRANSFERASE 32 Units/L (12-78); ALBUMIN 2.7 g/dL (3.4-5.0); ALKALINE PHOSPHATASE 39 Units/L (46-116); ASPARTATE AMINO TRANSFERASE 18 Units/L (15-37); CALCIUM 10.2 mg/dL (8.5-10.1); COR CA(FOR HYPOALB) 11.2 mg/dL (8.5-10.1); TOTAL PROTEIN 5.1 g/dL (6.4-8.2)
--- NOTE | 2022-12-19 07:11 | RAD ---
HISTORYpain across abd, r/o free airSTUDYCHEST, 1 VIEWCOMPARISONNoneFINDINGSThe cardiomediastinal silhouette is normal in size. No acute airspace disease. No pneumothorax or effusion. The bony thorax appears intact.IMPRESSIONNo acute cardiopulmonary disease.Electronically signed by: LIN STEARNS (Dec 19, 2022 07:10:00)
--- NOTE | 2022-12-19 09:16 | RAD ---
HISTORYsmall bowel obstructionSTUDYKUBCOMPARISONNone br.br.br nonobstructive bowel gas pattern with multiple air-filled loops of small bowel distal colonic gas being present. A nasogastric tube is noted there appears to been slightly retracted. No pathological soft tissue mass or calcification can be observed. The bony structures are grossly intact.IMPRESSIONAir-filled loops of small bowel with distal colonic gas remains present. Continued follow-up in evaluation of ileus versus developing small bowel obstruction will be needed.Electronically signed by: JOIS SAUNDERS (Dec 19, 2022 09:15:25)
[2022-12-19] MEDS: LOPRESSOR INJ 5 MG AMP IVP SCH (10:07)
[2022-12-19] MEDS: MORPHINE SULFATE INJ 4 MG IVP PRN (15:00)
[2022-12-19] MEDS: PROVENTIL NEB TX 0.083% 2.5MG/ 3ML IN PRN (17:55)
--- NOTE | 2022-12-19 18:24 | DR.H&P ---
H&P - History & Physical for Day of: H&P Date: 12/18/22 - Chief Complaint Chief Complaint: ABDOMINAL PAIN, NAUSEA, VOMITING, WEAKNESS - History of Present Illness History of Present Illness: IS A 72 YEAR OLD PATIENT OF PAT [facility]ero[facility]. HE PRESENTED TO THE ER WITH COMPLAINTS OF PAIN IN THE LOWER QUADRANTS OF THE ABDOMEN. HE REPORTS THAT PAIN STARTED ABOUT SIX DAYS AGO. PAIN IS DESCRIBED CRAMPING, CONSTANT, AND WORSENING. IT RADIATES TO THE BACK. PAIN IS WORSE WITH MOVEMENT AND PALPATION. HE RATES PAIN A 7/10. HE REPORTS ASSOCIATED NAUSEA, VOMITING, AND INCREASED WEAKNESS. HIS PMH INCLUDES: ANEMIA, ARTHRITIS, ASTHMA, CHF, COPD, CAD, CVA, DEMENTIA, DYSLIPIDEMIA, GERD, HTN, KIDNEY STONES, [place], CARDIAC STENTS, AND CABG. ON ARRIVAL TO THE ER, HIS VITALS WERE: 98.1-100-26-96%-126/71. LABS WERE OBTAINED. WBC 12.7, RBC 4.60, HGB 12.9, HCT 39.4, PLT COUNT 241, SODIUM 140, POTASSIUM 5.2, CHLORIDE 102, CARBON DIOXIDE 30.4, BUN 112, CREATININE 3.76, GFR 20, GLUCOSE 85, LACTIC ACID 2.2, CALCIUM 11.4, AST 22, ALT 11.4, ALK PHOS 50, TOTAL PROTEIN 6.0, ALBUMIN 3.3, LIPASE 53. A URINALYSIS WAS OBTAINED AND REVEALED: WBC 3-5, RBC 0-2, LEUKOCYTES 1+, BACTERIA NEGATIVE, NITRITE NEGATIVE. BLOOD CULTURES WERE SET UP. A CHEST XRAY WAS OBTAINED AND REVEALED: The cardiomediastinal silhouette is normal in size. No acute airspace disease. No pneumothorax or effusion. The bony thorax appears intact. AN ABDOMEN/PELVIS CT WITHOUT CONTRAST WAS OBTAINED AND REVEALED: Severe dilatation of the proximal small bowel loops with decompressed distal ileal loops, suspicious for high-grade small-bowel obstruction, surgical consultation is recommended. No evidence of free air. 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 HE GAVE ORDERS FOR A NG TUBE TO BE INSERTED AND CONNECTED TO INTERMITTENT SUCTION. IN THE ER, HE WAS GIVEN MORPHINE 4MG IV X 1 DOSE, A NORMAL SALINE BOLUS X 2 LITERS, ZOFRAN 4MG IV X 1 DOSE, ZOSYN 3.375G IV X 1 DOSE. SHE WAS ADMITTED TO THE HOSPITAL INPATIENT STATUS FOR FURTHER EVALUATION AND TREATMENT OF SMALL BOWEL OBSTRUCTION AND ACUTE NON- TRAUMATIC KIDNEY INJURY. HE WAS STARTED ON D51/2 NS AT 125 ML/HR, ZOSYN 3.375G IV TID, ATIVAN 1MG IV Q4H PRN, LOPRESSOR 5MG IV DAILY, MORPHINE 4MG IV Q4H PRN, ZOFRAN 4MG IV Q6H PRN. WE WILL HOLD HIM NPO. OTHERWISE, WE WILL FOLLOW-UP WITH AM LABS, KUB, AND CONTINUE TO MONITOR. TIME SPENT ON CLINICAL ASSESSMENT, REVIEWING LABS AND IMAGING, DECISION MAKING, AND DOCUMENTATION GREATER THAN 75 MINUTES. - Past Medical History Past Medical History: [place], Coronary Artery Disease, Hypertension, Dyslipidemia, Dementia, Anemia, CVA, COPD, Asthma, GERD, Arthritis, Kidney Stones, CHF - Past Surgical History Surgical History: Abdominal Surgery, Angioplasty/Stents, CABG/Valve Surgery - Family History Family Medical History: Diabetes Mellitus, Hypertension - Social History Does patient currently use any type of tobacco product: Yes Have you used tobacco products in the last 12 months: Yes Type of Tobacco Use: Cigarettes Does any household member use tobacco: Yes Alcohol Use: None Drug Use: None - Medications Home Medications: Home Medications Medication Instructions Recorded Confirmed Type aspirin 81 mg tablet,delayed 81 mg PO DAILY 02/03/17 12/18/22 History release atorvastatin 40 mg tablet 40 mg PO HS 02/03/17 12/18/22 History clonazepam 2 mg tablet 2 mg PO HS 02/03/17 12/18/22 History amlodipine 10 mg tablet 10 mg PO DAILY 12/12/18 12/18/22 History ergocalciferol (vitamin D2) 1,250 50,000 unit PO 2XW 12/12/18 12/18/22 History mcg (50,000 unit) capsule (Vitamin D2) metoprolol tartrate 50 mg tablet 50 mg PO BID 12/12/18 12/18/22 History ticagrelor 60 mg tablet (Brilinta) 60 mg PO BID 03/14/20 12/18/22 History losartan 25 mg tablet 25 mg PO DAILY 12/28/20 12/18/22 History - Review of Systems Constitutional: Weakness Eyes: No Symptoms Reported ENT: No Symptoms Reported Respiratory: No Symptoms Reported Cardiovascular: No Symptoms Reported Gastrointestinal: Nausea, Vomiting, Abdominal Pain. denies: Melena, Hematochezia Genitourinary: No Symptoms Reported Musculoskeletal: No Symptoms Reported Skin: No Symptoms Reported Neurological: Weakness - Physical Exam Vital Signs: Temperature 98.4 F Temperature 98.1 F Pulse Rate [Right Brachial] 100 Pulse Rate 92 Pulse Rate 100 Respiratory Rate 20 Respiratory Rate 26 Blood Pressure [Left Arm] 132/68 Blood Pressure [Right Arm] 177/82 Blood Pressure 138/76 Blood Pressure 159/85 O2 Sat by Pulse Oximetry 95 O2 Sat by Pulse Oximetry 96 Oriented: Normal, Time, Person, Place Eyes: Normal Ear: Normal Nose: Normal Throat: Normal Respiratory: Diminished Throughout Cardiovascular: Normal : Normal Auscultation: Bowel Sounds: Normal Palpation: Normal Tenderness: RLQ, LLQ, Moderate, Guarding Skin: Decreased Turgur Musculoskeletal: Normal Psychiatric: Anxiety Mood Description: Anxious Affect: Anxious Speech Pattern: Clear - Assessment/Plan (1) Small bowel obstruction Status: Acute Plan: ADMIT, NG TUBE TO INTERMITTENT SUCTION, D51/2 NS AT 125 ML/HR, ZOSYN 3.375G IV TID, ATIVAN 1MG IV Q4H PRN, LOPRESSOR 5MG IV DAILY, MORPHINE 4MG IV Q4H PRN, ZOFRAN 4MG IV Q6H PRN (2) Acute nontraumatic kidney injury Status: Acute Plan: D51/2 NS AT 125 ML/HR (3) Nausea and vomiting Qualifiers: Vomiting type: bilious vomiting Qualified Code(s): R11.14 - Bilious vomiting Status: Acute (4) Generalized weakness Status: Acute (5) CHF (congestive heart failure) Qualifiers: Heart failure type: unspecified Heart failure chronicity: chronic Qualified Code(s): I50.9 - Heart failure, unspecified Status: Chronic Plan: HOLD DIURETICS DUE TO RENAL INJURY (6) Hypertension Qualifiers: Hypertension type: primary hypertension Qualified Code(s): I10 - Essential (primary) hypertension Status: Chronic Plan: LOPRESSOR 5MG IV DAILY - Allergies Allergies/Adverse Reactions: Allergies Allergy/AdvReac Type Severity Reaction Status Date / Time No Known Drug Allergies Allergy Verified 12/14/21 08:57
--- NOTE | 2022-12-19 19:25 | RAD ---
HISTORYShortness of breath, increased fluid volumeSTUDYCHEST, 1 VIEWCOMPARISONFrontal chest radiograph December 18, 2022FINDINGSEnteric tube is present with tip overlying the stomach. There is mild pulmonary vascular prominence and cephalization, similar to the 1 day's prior study. No pneumothorax or confluent airspace opacity.IMPRESSIONMild pulmonary vascular prominence, stable.Electronically signed by: Christopher Ibrahim (Dec 19, 2022 19:22:56)
--- NOTE | 2022-12-19 20:48 | RAD ---
HISTORYNG tube [id number]/05/2023 5:08 a.m.FINDINGSThere is a nasogastric tube with its tip just barely within the stomach. Side port is in the distal esophagus. Advancement is recommended. Dilated small bowel is again identified in the left upper quadrant with more normal small-bowel loops in the right lower quadrant findings are suggestive of small-bowel obstruction. Patient is status post ventral hernia repair regional skeleton is intact.IMPRESSIONNasogastric tube tip barely within the stomach. Side hole within the distal esophagus. Advancement is recommendedFindings suggestive of at least partial small bowel obstructionElectronically signed by: LIN STEARNS (Dec 19, 2022 20:47:33)
--- NOTE | 2022-12-19 23:26 | DR.CONSULT ---
CONSULT Consultation for Day of: Date: 12/18/22 Chief Complaint Chief Complaint: Abdominal pain, abdominal distention, vomiting Allergies Allergies Allergy/AdvReac Type Severity Reaction Status Date / Time No Known Drug Allergies Allergy Verified 12/14/21 08:57 History of Present Illness History of Present Illness: 72 yo male who present to the ER with 6 days of a bdominal pain with nausea and vomiting . Evaluated in the ER. CT shows dilated loops of small bowel consistent with small bowel obstruction. No flatus or BM in several days. Has evidence significant dehydration with creatinine > [address] also shows evidence of laparoscopic ventral hernia repair . Hernia originally from CABG extended down onto the abdomen. Past Medical History Past Medical History: Anemia, Arthritis, Asthma, CHF, COPD, Coronary Artery Disease, CVA, Dementia, Dyslipidemia, GERD, Hypertension, Kidney Stones and [place] Past Surgical History Surgical History: Abdominal Surgery, Angioplasty/Stents and CABG/Valve Surgery Family History Family Medical History: Diabetes Mellitus and Hypertension Social History Does patient currently use any type of tobacco product: Yes Have you used tobacco products in the last 12 months: Yes Type of Tobacco Use: Cigarettes Does any household member use tobacco: Yes Alcohol Use: None Drug Use: None Medications Home Medications: No Known Drug Allergies Allergy (Verified 12/14/21 08:57) Amlodipine 10mg po daily aspirin 81 mg po daily atorvastatin 40 mg po daily Brillinta 60 mg po BID Clonazepam 2 [place]hs [place] 63221 units po 2x/ week Losartan 25 mg po daily metoprolol 50mg po BID Review of Systems Constitutional: See HPI Eyes: No Symptoms Reported ENT: No Symptoms Reported Respiratory: No Symptoms Reported Cardiovascular: No Symptoms Reported Gastrointestinal: See HPI Genitourinary: No Symptoms Reported Musculoskeletal: No Symptoms Reported Skin: No Symptoms Reported Physical Exam Vital Signs: Temperature 98.4 F Temperature 98.1 F Pulse Rate [Right Brachial] 89 Pulse Rate 92 Pulse Rate 100 Respiratory Rate 18 Respiratory Rate 26 Blood Pressure [Left Arm] 116/59 Blood Pressure [Right Arm] 177/82 Blood Pressure 140/70 Blood Pressure 159/85 O2 Sat by Pulse Oximetry 99 O2 Sat by Pulse Oximetry 96 Hgb=12.9,Creatinine= 3.76, WBC = 12.7 , Rest of BMP WNL Oriented: Normal, Time, Person and Place Eyes: Normal Ear: Normal Nose: Normal Throat: Normal Respiratory: Clear Throughout Cardiovascular: Normal : Normal Auscultation: Bowel Sounds: Absent Palpation: Other (distended abdomen and mild tenderness throughout. ) Tenderness: Diffuse Skin: Normal Musculoskeletal: Normal Mood Description: Calm Affect: Normal Speech Pattern: Appropriate Plan (1) Small bowel obstruction: Status: Acute Plan: NG tube and Jimenez catheter, serial exams and acute abdominal series . (2) Acute nontraumatic kidney injury: Status: Acute Plan: Hydration aggressively and monitor urine output and creatinine. (3) Hypertension: Status: Chronic Plan: Home medications (4) Tobacco user: Status: Acute Plan: Nicotine patch (5) Coronary artery disease: Status: Acute Plan: home medications
--- NOTE | 2022-12-19 23:26 | NOTE.SOAP ---
Soap Note Note for Day of Date of Exam: 12/19/22 Subjective Data Subjective Data: Admitted with diagnosis of SBO. Has severe dehydration. NG tube in place. Jimenez placed. Given aggressive fluid resuscitation. No BM of flatus in several days Objective Data Temperature: 98.2 F Pulse Rate: 110 Respiratory Rate: 20 Blood Pressure: 138/76 O2 Sat by Pulse Oximetry: 96 Objective Data: Mildly distended abdomen and not tender. Hgb=11.7, Cr=3.10, WBC=9.8, AAS consistetn with SBO Assessment Assessment: SBO Plan Plan: Continue NG tube and hydration
[2022-12-20] MEDS: PROVENTIL NEB TX 0.083% 2.5MG/ 3ML IN PRN ×3 (02:14→18:02)
[2022-12-20] MEDS: D5 1/2 NS 1,000 ML 1,000 ML IV SCH ×4 (03:11→21:09)
[2022-12-20] MEDS: MORPHINE SULFATE INJ 4 MG IVP PRN ×2 (03:12→22:40)
[2022-12-20] MEDS: ZOSYN VIAL 3.375 GRAMS 3.375 G in NS 100 ML IV 100 ML IV SCH ×3 (05:04→21:07)
[2022-12-20 06:28] LABS: BASOPHILS % (AUTO) 0.2 % (0.2-1.0); EOSINOPHILS # (AUTO) 0.1 x10^3/uL (0.0-0.2); EOSINOPHILS % (AUTO) 1.1 % (0.9-2.9); HEMATOCRIT 34.3 % (42.0-54.0); HEMOGLOBIN 11.4 g/dL (13.5-18.0); LYMPHOCYTES # (AUTO) 0.8 X10^3/uL (1.3-2.9); MEAN CORPUSCULAR HEMOGLOBIN 28.7 pg (27.0-34.0); MEAN CORPUSCULAR HGB CONC 33.3 g/dL (33.0-35.0); MEAN CORPUSCULAR VOLUME 86.2 fL (80.0-100.0); MEAN PLATELET VOLUME 8.1 fL (7.4-11.0); MONOCYTES # (AUTO) 0.8 x10^3/uL (0.3-0.8); MONOCYTES % (AUTO) 7.8 % (0.0-13.0); NEUTROPHILS # (AUTO) 9.1 x10^3/uL (2.2-4.8); NEUTROPHILS % (AUTO) 83.9 % (42.0-75.0); PLATELET COUNT 209 X10^3/uL (150.0-450.0); RED BLOOD COUNT 3.98 X10^6/uL (4.7-6.0); RED CELL DISTRIBUTION WIDTH 16.2 % (11.6-16.5); WHITE BLOOD COUNT 10.8 X10^3/uL (3.6-10.0)
[2022-12-20 06:55] LABS: ALBUMIN 2.5 g/dL (3.4-5.0); CALCIUM 10.3 mg/dL (8.5-10.1); CARBON DIOXIDE 32.7 mmol/L (21-32); COR CA(FOR HYPOALB) 11.5 mg/dL (8.5-10.1); CREATININE 2.95 mg/dL (0.70-1.30); POTASSIUM 4.9 mmol/L (3.5-5.1); TOTAL PROTEIN 5.2 g/dL (6.4-8.2)
[2022-12-20] MEDS ORDERED: LASIX IVP ONE (09:00)
[2022-12-20] MEDS: LOPRESSOR INJ 5 MG AMP IVP SCH (09:18)
[2022-12-20] MEDS: ATIVAN INJ 2 MG VIAL IVP PRN (09:21)
--- NOTE | 2022-12-20 13:21 | NOTE.SOAP ---
Soap Note Note for Day of Date of Exam: 12/20/22 Subjective Data Subjective Data: Patient admitted with small bowel obstruction. Not much improved. He pulled his NG tube out and will not let it be replaced. Despite IV hydration his creatinine is elevated at 2.9. He has c/o of some SOB Objective Data Temperature: 99.7 F Pulse Rate: 120 Respiratory Rate: 24 Blood Pressure: 162/84 O2 Sat by Pulse Oximetry: 93 Objective Data: Abdomen still distended but not tender. Assessment Assessment: Small bowel obstruction Plan Plan: Will probably require laparotomy to resolve small bowel obstruction. Not a low risk patient.
--- NOTE | 2022-12-20 18:07 | RAD ---
HISTORYSmall-bowel obstruction, preoperative examination of the heart and lungsSTUDYCHEST, 1 VIEWCOMPARISONJune 2022 and December 18, 2022 frontal chest radiographsFINDINGSRight hilar and suprahilar densities are present. Interstitial coarsening. No pneumothorax.IMPRESSIONNo acute cardiopulmonary process.Chronic appearing interstitial lung changes with right hilar and suprahilar prominence. Vascular engorgement, adenopathy or mass could be present. Follow-up CT imaging of the chest with intravenous contrast is suggested.Electronically signed by: Christopher Ibrahim (Dec 20, 2022 18:06:22)
--- NOTE | 2022-12-20 19:14 | PCM.PROG ---
Progress Note - Progress Note for Day of Date of Exam: 12/20/22 - Subjective Subjective: IS CURRENTLY INPATIENT STATUS FOR TREATMENT OF SMALL BOWEL OBSTRUCTION, ACUTE KIDNEY INJURY, NAUSEA AND VOMITING, AND GENERALIZED WEAKNESS. HE HAS A PMH OF ANEMIA, ARTHRITIS, ASTHMA, CHF, COPD, CAD, CVA, DEMENTIA, DYSLIPIDEMIA, GERD, HTN, KIDNEY STONES, [place], CARDIAC STENTS, AND CABG. TODAY, HE IS ALERT AND ORIENTED, LYING IN BED ON MORNING ROUNDS. HE CONTINUES TO COMPLAIN OF OCCASIONAL ABDOMINAL CRAMPING. HE DOES REPORT SLIGHT IMPROVEMENT IN SYMPTOMS SINCE YESTERDAY. HIS NG TUBE CAME OUT THROUGHOUT THE NIGHT AND HE WOULD NOT LET THE NURSES REPLACE IT. ON EXAMINATION TODAY, HEART IS REGULAR IN RATE AND RHYTHM. BILATERAL LUNGS ARE NOTED WITH DIMINISHED LUNG SOUNDS THROUGHOUT. A BDOMEN IS DISTENDED, BUT IS NOT TENDER. HYPOACTIVE BOWEL SOUNDS NOTED. GOOD MOVEMENT TO UPPER AND LOWER EXTREMITIES. TRACE EDEMA NOTED TO BILATERAL LOWER EXTREMITIES. HIS VITALS THIS MORNING ARE: 98.4-120-28-93%-119/64. HE IS CURRENTLY UTILIZING OXYGEN VIA NASAL CANNULA AT 2 LITERS/MINUTE. LABS WERE OBTAINED. WBC 10.8, RBC 3.98, HGB 11.4, HCT 34.3, PLT COUNT 209, SODIUM 143, POTASSIUM 4.9, CHLORIDE 106, CARBON DIOXIDE 32.7, BUN 74, CREATININE 2.95, GLUCOSE 119, CALCIUM 10.3, AST 22, ALT 32, ALK PHOS 43, BNP 130, TOTAL PROTEIN 5.2, ALBUMIN 2.5. D51/2 NS AT 125 ML/HR, ZOSYN 3.375G IV TID, ATIVAN 1MG IV Q4H PRN, LOPRESSOR 5MG IV DAILY, MORPHINE 4MG IV Q4H PRN, ZOFRAN 4MG IV Q6H PRN. WE WILL HOLD HIM NPO AND CONTINUE WITH CURRENT PLAN OF CARE TODAY. WILL CONTINUE TO FOLLOW HIM. OTHERWISE, WE WILL FOLLOW-UP WITH AM LABS AND CONTINUE TO MONITOR. TIME SPENT ON CLINICAL ASSESSMENT, REVIEWING LABS AND IMAGING, DECISION MAKING, AND DOCUMENTATION GREATER THAN 45 MINUTES. - Past Medical Family Social History Past Med/Fam/Surg Hx: No changes since H&P Allergies: Allergies No Known Drug Allergies Allergy (Verified 12/14/21 08:57) - Review of Systems ROS: No change since H&P - Vital Signs and I&O's Vital Signs: Temperature 98.6 F Temperature 98.2 F Pulse Rate [Right Brachial] 134 Pulse Rate 120 Pulse Rate 110 Respiratory Rate 22 Respiratory Rate 20 Blood Pressure [Left Arm] 143/65 Blood Pressure [Right Arm] 177/82 Blood Pressure 162/84 Blood Pressure 138/76 O2 Sat by Pulse Oximetry 94 O2 Sat by Pulse Oximetry 96 Intake and Output: Intake & Output 12/18/22 12/19/22 12/20/22 12/21/22 11:59 11:59 11:59 11:59 Intake Total 2500 / 2500 3580 / 3580 2092 / 2092 Output Total 900 / 900 2940 / 2940 650 / 650 Balance 1600 / 1600 640 / 640 1443 / 1443 - Physical Exam Oriented: Normal, Time, Person, Place Eyes: Normal Ear: Normal Nose: Normal Throat: Normal Respiratory: Generalized, Diminished Cardiovascular: Normal : Normal Auscultation: Bowel Sounds: Normal Palpation: Normal Tenderness: RLQ, LLQ, Moderate, Guarding Skin: Decreased Turgur Musculoskeletal: Normal Psychiatric: Anxiety Mood Description: Anxious Affect: Anxious Speech Pattern: Unclear - Laboratory and Diagnostics Result Diagrams: 12/20/22 05:18 12/20/22 05:18 Labs: 12/18/22 15:00 Blood Blood Culture - Preliminary 12/18/22 14:55 Blood Blood Culture - Preliminary Laboratory WBC 10.8 X10^3/uL (3.6-10.0) H 12/20/22 05:18 RBC 3.98 X10^6/uL (4.7-6.0) L 12/20/22 05:18 Hgb 11.4 g/dL (13.5-18.0) L 12/20/22 05:18 Hct 34.3 % (42.0-54.0) L 12/20/22 05:18 MCV 86.2 fL (80.0-100.0) 12/20/22 05:18 MCH 28.7 pg (27.0-34.0) 12/20/22 05:18 MCHC 33.3 g/dL (33.0-35.0) 12/20/22 05:18 RDW 16.2 % (11.6-16.5) 12/20/22 05:18 Plt Count 209 X10^3/uL (150.0-450.0) 12/20/22 05:18 MPV 8.1 fL (7.4-11.0) 12/20/22 05:18 Neut % (Auto) 83.9 % (42.0-75.0) H 12/20/22 05:18 Lymph % (Auto) 7.0 % (21.0-51.0) L 12/20/22 05:18 [place] % (Auto) 7.8 % (0.0-13.0) 12/20/22 05:18 Eos % (Auto) 1.1 % (0.9-2.9) 12/20/22 05:18 Baso % (Auto) 0.2 % (0.2-1.0) 12/20/22 05:18 Neut # (Auto) 9.1 x10^3/uL (2.2-4.8) H 12/20/22 05:18 Lymph # (Auto) 0.8 X10^3/uL (1.3-2.9) L 12/20/22 05:18 [place] # (Auto) 0.8 x10^3/uL (0.3-0.8) 12/20/22 05:18 Eos # (Auto) 0.1 x10^3/uL (0.0-0.2) 12/20/22 05:18 Baso # (Auto) 0.0 X10^3/uL (0.0-0.1) 12/20/22 05:18 Absolute Nucleated RBC 0.0 /100WBC 12/20/22 05:18 Sodium 143 mmol/L (136-145) 12/20/22 05:18 Corrected Sodium 143 mmol/L (136-145) 12/20/22 05:18 Potassium 4.9 mmol/L (3.5-5.1) 12/20/22 05:18 Chloride 106 mmol/L (98-107) 12/20/22 05:18 Carbon Dioxide 32.7 mmol/L (21-32) H 12/20/22 05:18 BUN 74 mg/dL (7-18) H 12/20/22 05:18 Creatinine 2.95 mg/dL (0.70-1.30) H 12/20/22 05:18 Est GFR (MDRD) Af Amer 27 (>60) L 12/20/22 05:18 Est GFR (MDRD) Non-Af 22 (>60) L 12/20/22 05:18 Glucose 119 mg/dL (65-99) H 12/20/22 05:18 Lactic Acid 1.5 mmol/L (0.4-2.0) 12/18/22 18:24 Calcium 10.3 mg/dL (8.5-10.1) H 12/20/22 05:18 Corrected Calcium 11.5 mg/dL (8.5-10.1) H 12/20/22 05:18 Total Bilirubin 0.80 mg/dL (0.2-1.0) 12/20/22 05:18 AST 22 Units/L (15-37) 12/20/22 05:18 ALT 32 Units/L (12-78) 12/20/22 05:18 Alkaline Phosphatase 43 Units/L (46-116) L 12/20/22 05:18 B-Natriuretic Peptide 130 pg/mL (0-79) H 12/20/22 05:18 Total Protein 5.2 g/dL (6.4-8.2) L 12/20/22 05:18 Albumin 2.5 g/dL (3.4-5.0) L 12/20/22 05:18 Globulin 2.7 g/dL (2.5-4.5) 12/20/22 05:18 Albumin/Globulin Ratio 0.9 Ratio (1.1-2.1) L 12/20/22 05:18 Lipase 53 Units/L (73-393) L 12/18/22 14:55 Specimen Type Clean catch urine 12/18/22 15:46 Urine Color Yellow (YELLOW) 12/18/22 15:46 Urine Appearance Clear (CLEAR) 12/18/22 15:46 Urine pH 5.0 (5.0 - 8.0) 12/18/22 15:46 Ur Specific [place] 1.020 (1.000-1.030) 12/18/22 15:46 Urine Protein 2+ (NEGATIVE) 12/18/22 15:46 Urine Glucose (UA) Negative (NEGATIVE) 12/18/22 15:46 Urine Ketones 1+ (NEGATIVE) 12/18/22 15:46 Urine Blood 1+ (NEGATIVE) 12/18/22 15:46 Urine Nitrite Negative (NEGATIVE) 12/18/22 15:46 Urine Bilirubin Negative (NEGATIVE) 12/18/22 15:46 Urine Urobilinogen Normal (NORMAL) 12/18/22 15:46 Ur Leukocyte Esterase 1+ (NEGATIVE) 12/18/22 15:46 Urine RBC 0-2 /HPF (0-3) 12/18/22 15:46 Urine WBC 3-5 /HPF (0-5) 12/18/22 15:46 Ur Squamous Epith Cells Rare /HPF (NEGATIVE) 12/18/22 15:46 Urine Bacteria Negative /HPF (NEGATIVE) 12/18/22 15:46 Ur Culture Indicated? No/not indicated 12/18/22 15:46 - Plan (1) Small bowel obstruction Status: Acute Plan: D51/2 NS AT 125 ML/HR, ZOSYN 3.375G IV TID, ATIVAN 1MG IV Q4H PRN, LOPRESSOR 5MG IV DAILY, MORPHINE 4MG IV Q4H PRN, ZOFRAN 4MG IV Q6H PRN (2) Acute nontraumatic kidney injury Status: Acute Plan: D51/2 NS AT 125 ML/HR (3) Nausea and vomiting Status: Acute Qualifiers: Vomiting type: bilious vomiting Qualified Code(s): R11.14 - Bilious vomiting (4) Generalized weakness Status: Acute (5) CHF (congestive heart failure) Status: Chronic Qualifiers: Heart failure type: unspecified Heart failure chronicity: chronic Qualified Code(s): I50.9 - Heart failure, unspecified Plan: HOLD DIURETICS DUE TO RENAL INJURY (6) Hypertension Status: Chronic Qualifiers: Hypertension type: primary hypertension Qualified Code(s): I10 - Essential (primary) hypertension Plan: LOPRESSOR 5MG IV DAILY
--- NOTE | 2022-12-20 21:18 | RAD ---
HISTORYVerify placement of NGTSTUDYCHEST, 1 VIEWCOMPARISONJune 2022 1:38 p.m.FINDINGSAn enteric tube is present with tip coiled in the stomach.IMPRESSIONSatisfactory position of the enteric tube.Electronically signed by: Christopher Ibrahim (Dec 20, 2022 21:16:32)
[2022-12-21] MEDS: ATIVAN INJ 2 MG VIAL IVP PRN
[2022-12-21] MEDS: D5 1/2 NS 1,000 ML 1,000 ML IV SCH ×3 (03:32→21:19)
[2022-12-21] MEDS: ZOSYN VIAL 3.375 GRAMS 3.375 G in NS 100 ML IV 100 ML IV SCH ×3 (06:17→21:19)
[2022-12-21 07:19] LABS: BASOPHILS % (AUTO) 0.2 % (0.2-1.0); EOSINOPHILS # (AUTO) 0.1 x10^3/uL (0.0-0.2); EOSINOPHILS % (AUTO) 1.5 % (0.9-2.9); HEMATOCRIT 36.7 % (42.0-54.0); HEMOGLOBIN 11.9 g/dL (13.5-18.0); LYMPHOCYTES # (AUTO) 0.6 X10^3/uL (1.3-2.9); LYMPHOCYTES % (AUTO) 6.5 % (21.0-51.0); MEAN CORPUSCULAR HEMOGLOBIN 28.4 pg (27.0-34.0); MEAN CORPUSCULAR HGB CONC 32.6 g/dL (33.0-35.0); MEAN PLATELET VOLUME 8.3 fL (7.4-11.0); MONOCYTES # (AUTO) 1.1 x10^3/uL (0.3-0.8); MONOCYTES % (AUTO) 12.3 % (0.0-13.0); NEUTROPHILS # (AUTO) 7.4 x10^3/uL (2.2-4.8); NEUTROPHILS % (AUTO) 79.5 % (42.0-75.0); PLATELET COUNT 198 X10^3/uL (150.0-450.0); RED BLOOD COUNT 4.21 X10^6/uL (4.7-6.0); RED CELL DISTRIBUTION WIDTH 15.9 % (11.6-16.5); WHITE BLOOD COUNT 9.3 X10^3/uL (3.6-10.0)
[2022-12-21] MEDS: LOPRESSOR INJ 5 MG AMP IVP SCH ×4 (07:38→21:20)
[2022-12-21 07:41] LABS: ALBUMIN 2.5 g/dL (3.4-5.0); CALCIUM 10.8 mg/dL (8.5-10.1); CARBON DIOXIDE 34.1 mmol/L (21-32); CREATININE 3.06 mg/dL (0.70-1.30); POTASSIUM 4.9 mmol/L (3.5-5.1); TOTAL PROTEIN 5.5 g/dL (6.4-8.2)
--- NOTE | 2022-12-21 07:42 | EKG ---
Test Reason : HIGH HR Blood Pressure : */* mmHG Vent. Rate : 110 BPM Atrial Rate : 110 BPM P-R Int : 112 ms QRS Dur : 76 ms QT Int : 300 ms P-R-T Axes : 86 96 60 degrees QTc Int : 406 ms Sinus tachycardia Low voltage QRS Septal infarct , age undetermined Possible Lateral infarct , age undetermined Abnormal ECG No previous ECGs available Confirmed by Fran Ny ([id number]) on 12/21/2022 8:08:15 AM Referred By: Confirmed By: Fran Ny
[2022-12-21 10:16] LABS: ABG BASE EXCESS 10.6 mmol/L (-2.0-2.0); ABG HCO3 37.4 mmol/L (22-26)
[2022-12-21] MEDS: MORPHINE SULFATE INJ 4 MG IVP PRN (13:30)
--- NOTE | 2022-12-21 13:34 | RAD ---
HISTORYNG TUBE PLACEMENTSTUDYSOFT TISSUE NECKCOMPARISONNoneFINDINGSThe prevertebral soft tissues are unremarkable in their appearance. No evidence for foreign body can be identified. Nasogastric tube is coiled in the nasopharynx. The hypopharynx and distal airway appear unremarkable. The bony cervical spine is grossly unremarkable.IMPRESSIONNasogastric tube coiled in the nasopharynx. Recommend removal and repositioning.Electronically signed by: LIN STEARNS (Dec 21, 2022 13:32:59)
--- NOTE | 2022-12-21 13:34 | RAD ---
HISTORYNG TUBE PLACEMENTSTUDYCHEST, 1 [id number]/2023FINDINGSThe cardiomediastinal silhouette is stable. Similar scattered airspace opacities most notable in the right upper lobe. Nonvisualization of enteric tube. No pneumothorax or effusion. The bony thorax appears intact.IMPRESSIONRight upper lobe airspace opacities. Enteric tube not visualized.Electronically signed by: LIN STEARNS (Dec 21, 2022 13:33:27)
[2022-12-21] MEDS: HALDOL INJ IVP PRN (14:53)
[2022-12-21] MEDS: PEPCID 20 MG VIAL 20 MG in NS 50 ML IV 50 ML IV SCH (15:02)
[2022-12-21] MEDS: PROTONIX INJ 40 MG VIAL IVP SCH ×2 (15:02→21:20)
--- NOTE | 2022-12-21 15:24 | PCM.PROG ---
Progress Note - Progress Note for Day of Date of Exam: 12/21/22 - Subjective Subjective: IS CURRENTLY INPATIENT STATUS FOR TREATMENT OF SMALL BOWEL OBSTRUCTION, ACUTE KIDNEY INJURY, NAUSEA AND VOMITING, AND GENERALIZED WEAKNESS. HE HAS A PMH OF ANEMIA, ARTHRITIS, ASTHMA, CHF, COPD, CAD, CVA, DEMENTIA, DYSLIPIDEMIA, GERD, HTN, KIDNEY STONES, [place], CARDIAC STENTS, AND CABG. TODAY, HE IS LYING IN BED WITH EYES CLOSED ON MORNING ROUNDS. HE OPENS EYES TO VERBAL STIMULI, BUT QUICKLY FALLS BACK TO SLEEP. HE DID HAVE SOME ATIVAN THROUGHOUT THE NIGHT FOR AGITATION. NURSING STAFF REPORTS THAT PATIENT CONTINUES TO HAVE NAUSEA AND VOMITING, EVEN WHEN THE NG WAS IN PLACE. HIS NG TUBE WAS ABLE TO BE REINSERTED LAST NIGHT, BUT HE HAS SINCE PULLED IT OUT AGAIN. ON EXAMINATION TOD AY, HE IS TACHYCARDIC WITH HR IN THE 120s-130s. BILATERAL LUNGS ARE NOTED WITH DIMINISHED LUNG SOUNDS THROUGHOUT. ABDOMEN IS DISTENDED, BUT IS NOT TENDER. HYPOACTIVE BOWEL SOUNDS NOTED. TRACE EDEMA NOTED TO BILATERAL LOWER EXTREMITIES. HIS VITALS THIS MORNING ARE: 98.4-120-28-93%-119/64. HE IS CURRENTLY UTILIZING OXYGEN VIA NASAL CANNULA AT 2 LITERS/MINUTE. NURSING STAFF REPORTS THAT HE DID COMPLAIN OF SOME SHORTNESS OF BREATH THROUGHOUT THE NIGHT. LABS WERE OBTAINED. WBC 9.3, RBC 4.21, HGB 11.9, HCT 36.7, PLT COUNT 198, SODIUM 146, POTASSIUM 4.9, CHLORIDE 106, CARBON DIOXIDE 34.1, BUN 80, CREATININE 3.06, GFR 26, GLUCOSE 117, CALCIUM 10.8, AST 29, ALT 39, ALK PHOS 46, TOTAL PROTEIN 5.5, ALBUMIN 2.5. BLOOD CULTURES ARE PENDING. EKG OBTAINED THIS MORNING AND REVEALED: SINUS TACHYCARDIA WITH HR 110 BPM. HE IS CURRENTLY RECEIVING D51/2 NS AT 125 ML/HR, ZOSYN 3.375G IV TID, HALDOL 2-4MG IV Q4H PRN, LOPRESSOR 5MG IV DAILY, MORPHINE 4MG IV Q4H PRN, ZOFRAN 4MG IV Q6H PRN. WILL CONTINUE TO FOLLOW HIM. HE HAS MENTIONED TAKING HIM TO THE OR IN THE MORNING IF HIS NAUSEA AND VOMITING DOESNT SUBSIDE. WE WILL HOLD HIM NPO AND INCREASE HIS LOPRESSOR TO 5MG Q8H. OTHERWISE, WE WILL CONTINUE WITH CURRENT PLAN OF CARE TODAY AND ATTEMPT TO REINSERT THE NG TUBE. WE WILL FOLLOW-UP WITH AM LABS AND CONTINUE TO MONITOR. TIME SPENT ON CLINICAL ASSESSMENT, REVIEWING LABS AND IMAGING, DECISION MAKING, AND DOCUMENTATION GREATER THAN 45 MINUTES. - Past Medical Family Social History Past Med/Fam/Surg Hx: No changes since H&P Allergies: Allergies No Known Drug Allergies Allergy (Verified 12/14/21 08:57) - Review of Systems ROS: No change since H&P - Vital Signs and I&O's Vital Signs: Temperature 99.4 F Temperature 98.2 F Pulse Rate [Right Brachial] 149 Pulse Rate 126 Pulse Rate 110 Respiratory Rate 25 Respiratory Rate 20 Blood Pressure [Left Arm] 134/68 Blood Pressure [Right Arm] 177/82 Blood Pressure 130/62 Blood Pressure 138/76 O2 Sat by Pulse Oximetry 95 O2 Sat by Pulse Oximetry 96 Intake and Output: Intake & Output 12/19/22 12/20/22 12/21/22 12/22/22 11:59 11:59 11:59 11:59 Intake Total 2500 / 2500 3580 / 3580 3318 / 3318 Output Total 900 / 900 2940 / 2940 2320 / 2320 Balance 1600 / 1600 640 / 640 998 / 998 - Physical Exam Oriented: Not Oriented Eyes: Normal Ear: Normal Nose: Normal Throat: Normal Respiratory: Generalized, Diminished Cardiovascular: Normal : Normal Auscultation: Bowel Sounds: Decreased Tenderness: RLQ, LLQ, Moderate, Guarding Skin: Decreased [place]urgur Musculoskeletal: Normal Psychiatric: Anxiety Mood Description: Anxious Affect: Anxious Speech Pattern: Unclear - Laboratory and Diagnostics Result Diagrams: 12/21/22 06:20 12/21/22 06:20 Labs: 12/18/22 14:55 Blood Blood Culture - Preliminary 12/18/22 15:00 Blood Blood Culture - Preliminary Laboratory WBC 9.3 X10^3/uL (3.6-10.0) 12/21/22 06:20 RBC 4.21 X10^6/uL (4.7-6.0) L 12/21/22 06:20 Hgb 11.9 g/dL (13.5-18.0) L 12/21/22 06:20 Hct 36.7 % (42.0-54.0) L 12/21/22 06:20 MCV 87.0 fL (80.0-100.0) 12/21/22 06:20 MCH 28.4 pg (27.0-34.0) 12/21/22 06:20 MCHC 32.6 g/dL (33.0-35.0) L 12/21/22 06:20 RDW 15.9 % (11.6-16.5) 12/21/22 06:20 Plt Count 198 X10^3/uL (150.0-450.0) 12/21/22 06:20 MPV 8.3 fL (7.4-11.0) 12/21/22 06:20 Neut % (Auto) 79.5 % (42.0-75.0) H 12/21/22 06:20 Lymph % (Auto) 6.5 % (21.0-51.0) L 12/21/22 06:20 [place] % (Auto) 12.3 % (0.0-13.0) 12/21/22 06:20 Eos % (Auto) 1.5 % (0.9-2.9) 12/21/22 06:20 Baso % (Auto) 0.2 % (0.2-1.0) 12/21/22 06:20 Neut # (Auto) 7.4 x10^3/uL (2.2-4.8) H 12/21/22 06:20 Lymph # (Auto) 0.6 X10^3/uL (1.3-2.9) L 12/21/22 06:20 [place] # (Auto) 1.1 x10^3/uL (0.3-0.8) H 12/21/22 06:20 Eos # (Auto) 0.1 x10^3/uL (0.0-0.2) 12/21/22 06:20 Baso # (Auto) 0.0 X10^3/uL (0.0-0.1) 12/21/22 06:20 Absolute Nucleated RBC 0.1 /100WBC 12/21/22 06:20 [facility] 12/21/22 10:14 ABG pH 7.410 (7.35-7.45) 12/21/22 10:14 ABG pCO2 59.0 mmHg (35.0-45.0) H* 12/21/22 10:14 ABG pO2 80.0 mmHg (80.0-100.0) 12/21/22 10:14 ABG HCO3 37.4 mmol/L (22-26) H* 12/21/22 10:14 ABG O2 Saturation 96.0 % (90-100) 12/21/22 10:14 ABG Base Excess 10.6 mmol/L (-2.0-2.0) H 12/21/22 10:14 [place] Test N/a 12/21/22 10:14 A-a Gradient 46.0 mmHg 12/21/22 10:14 FiO2 28.0 12/21/22 10:14 Blood Gas Comments Lydia well ms/eb 12/21/22 10:14 Sodium 146 mmol/L (136-145) H 12/21/22 06:20 Corrected Sodium 146 mmol/L (136-145) H 12/21/22 06:20 Potassium 4.9 mmol/L (3.5-5.1) 12/21/22 06:20 Chloride 106 mmol/L (98-107) 12/21/22 06:20 Carbon Dioxide 34.1 mmol/L (21-32) H 12/21/22 06:20 BUN 80 mg/dL (7-18) H 12/21/22 06:20 Creatinine 3.06 mg/dL (0.70-1.30) H 12/21/22 06:20 Est GFR (MDRD) Af Amer 26 (>60) L 12/21/22 06:20 Est GFR (MDRD) Non-Af 21 (>60) L 12/21/22 06:20 Glucose 117 mg/dL (65-99) H 12/21/22 06:20 Lactic Acid 1.5 mmol/L (0.4-2.0) 12/18/22 18:24 Calcium 10.8 mg/dL (8.5-10.1) H 12/21/22 06:20 Corrected Calcium 12.0 mg/dL (8.5-10.1) H 12/21/22 06:20 Total Bilirubin 0.50 mg/dL (0.2-1.0) 12/21/22 06:20 AST 29 Units/L (15-37) 12/21/22 06:20 ALT 39 Units/L (12-78) 12/21/22 06:20 Alkaline Phosphatase 46 Units/L (46-116) 12/21/22 06:20 B-Natriuretic Peptide 130 pg/mL (0-79) H 12/20/22 05:18 Total Protein 5.5 g/dL (6.4-8.2) L 12/21/22 06:20 Albumin 2.5 g/dL (3.4-5.0) L 12/21/22 06:20 Globulin 3.0 g/dL (2.5-4.5) 12/21/22 06:20 Albumin/Globulin Ratio 0.8 Ratio (1.1-2.1) L 12/21/22 06:20 Lipase 53 Units/L (73-393) L 12/18/22 14:55 Specimen Type Clean catch urine 12/18/22 15:46 Urine Color Yellow (YELLOW) 12/18/22 15:46 Urine Appearance Clear (CLEAR) 12/18/22 15:46 Urine pH 5.0 (5.0 - 8.0) 12/18/22 15:46 Ur Specific [place] 1.020 (1.000-1.030) 12/18/22 15:46 Urine Protein 2+ (NEGATIVE) 12/18/22 15:46 Urine Glucose (UA) Negative (NEGATIVE) 12/18/22 15:46 Urine Ketones 1+ (NEGATIVE) 12/18/22 15:46 Urine Blood 1+ (NEGATIVE) 12/18/22 15:46 Urine Nitrite Negative (NEGATIVE) 12/18/22 15:46 Urine Bilirubin Negative (NEGATIVE) 12/18/22 15:46 Urine Urobilinogen Normal (NORMAL) 12/18/22 15:46 Ur Leukocyte Esterase 1+ (NEGATIVE) 12/18/22 15:46 Urine RBC 0-2 /HPF (0-3) 12/18/22 15:46 Urine WBC 3-5 /HPF (0-5) 12/18/22 15:46 Ur Squamous Epith Cells Rare /HPF (NEGATIVE) 12/18/22 15:46 Urine Bacteria Negative /HPF (NEGATIVE) 12/18/22 15:46 Ur Culture Indicated? No/not indicated 12/18/22 15:46 - Plan (1) Small bowel obstruction Status: Acute Plan: D51/2 NS AT 125 ML/HR, ZOSYN 3.375G IV TID, HALDOL 2-4MG IV Q4H PRN, LOPRESSOR 5MG IV Q8H, MORPHINE 4MG IV Q4H PRN, ZOFRAN 4MG IV Q6H PRN (2) Acute nontraumatic kidney injury Status: Acute Plan: D51/2 NS AT 125 ML/HR (3) Nausea and vomiting Status: Acute Qualifiers: Vomiting type: bilious vomiting Qualified Code(s): R11.14 - Bilious vomiting (4) Generalized weakness Status: Acute (5) CHF (congestive heart failure) Status: Chronic Qualifiers: Heart failure type: unspecified Heart failure chronicity: chronic Qualified Code(s): I50.9 - Heart failure, unspecified Plan: HOLD DIURETICS DUE TO RENAL INJURY (6) Hypertension Status: Chronic Qualifiers: Hypertension type: primary hypertension Qualified Code(s): I10 - Essential (primary) hypertension Plan: LOPRESSOR 5MG IV DAILY
[2022-12-21] MEDS ORDERED: LOPRESSOR INJ 5 MG AMP IVP SCH (21:00)
--- NOTE | 2022-12-22 00:02 | NOTE.SOAP ---
Soap Note Note for Day of Date of Exam: 12/21/22 Subjective Data Subjective Data: Still no flatus or BMs. After I replaced the NG tube last night he pulled it out this AM. When the nurses tried to replace the NG tube , somehow they knotted it up in his pharynx and I could not remove it . Objective Data Temperature: 97.7 F Pulse Rate: 101 Respiratory Rate: 30 Blood Pressure: 124/73 O2 Sat by Pulse Oximetry: 100 Objective Data: NG stuck in pharynx. Abdomen still distended but not tender. WBC =11.9, Cr= 3.06 despite hydration. Did c/o some SOB and CXR without infiltrates and BNP mildly elevated at 130. Given IV lasix. Assessment Assessment: small bowel obstruction Plan Plan: Laparotomy tomorrow to relieve bowel obstruction. Will remove NG tube and replace it after anesthesia induced tomorrow. Check AAS in AM.
[2022-12-22] MEDS: MORPHINE SULFATE INJ 4 MG IVP PRN (00:18)
[2022-12-22] MEDS: HALDOL INJ IVP PRN ×2 (02:12→11:22)
[2022-12-22] MEDS: D5 1/2 NS 1,000 ML 1,000 ML IV SCH ×3 (03:04→18:29)
[2022-12-22] MEDS: ZOSYN VIAL 3.375 GRAMS 3.375 G in NS 100 ML IV 100 ML IV SCH ×2 (05:05→18:30)
[2022-12-22] MEDS: LOPRESSOR INJ 5 MG AMP IVP SCH ×2 (05:05→18:30)
--- NOTE | 2022-12-22 05:28 | RAD ---
HISTORYsmall bowel obstructionSTUDYACUTE ABDOMEN SERIESCOMPARISONNoneFINDINGSThe trachea is midline. The cardiac silhouette is unremarkable. The lungs are clear without focal infiltrate or effusion. The bony thorax is unremarkable.Flat plate and upright evaluation of the abdomen demonstrates a nonspecific but nonobstructive bowel gas pattern with multiple air-filled loops of small bowel within the central abdomen and distal colonic gas remaining present. Continued follow-up in evaluation of abdominal ileus versus developing obstruction will be needed. Nasogastric tube coursing through the esophagus into the stomach is observed. No pathological soft tissue mass or calcification can be observed. The bony structures are grossly intact.IMPRESSIONA nonspecific but nonobstructive bowel gas pattern is observed with nasogastric tube noted to be present. Continued follow-up will be needed.Electronically signed by: JOSI SAUNDERS (Dec 22, 2022 05:26:29)
[2022-12-22 05:37] LABS: BASOPHILS % (AUTO) 0.2 % (0.2-1.0); EOSINOPHILS # (AUTO) 0.1 x10^3/uL (0.0-0.2); EOSINOPHILS % (AUTO) 1.7 % (0.9-2.9); HEMATOCRIT 32.1 % (42.0-54.0); HEMOGLOBIN 10.5 g/dL (13.5-18.0); LYMPHOCYTES # (AUTO) 0.7 X10^3/uL (1.3-2.9); LYMPHOCYTES % (AUTO) 9.1 % (21.0-51.0); MEAN CORPUSCULAR HEMOGLOBIN 28.5 pg (27.0-34.0); MEAN CORPUSCULAR HGB CONC 32.8 g/dL (33.0-35.0); MEAN PLATELET VOLUME 8.4 fL (7.4-11.0); MONOCYTES # (AUTO) 1.1 x10^3/uL (0.3-0.8); MONOCYTES % (AUTO) 14.2 % (0.0-13.0); NEUTROPHILS # (AUTO) 5.9 x10^3/uL (2.2-4.8); NEUTROPHILS % (AUTO) 74.8 % (42.0-75.0); PLATELET COUNT 178 X10^3/uL (150.0-450.0); RED BLOOD COUNT 3.69 X10^6/uL (4.7-6.0); RED CELL DISTRIBUTION WIDTH 15.9 % (11.6-16.5); WHITE BLOOD COUNT 7.9 X10^3/uL (3.6-10.0)
[2022-12-22 05:50] LABS: ALBUMIN 2.1 g/dL (3.4-5.0); CALCIUM 9.8 mg/dL (8.5-10.1); CARBON DIOXIDE 33.1 mmol/L (21-32); COR CA(FOR HYPOALB) 11.3 mg/dL (8.5-10.1); CREATININE 2.56 mg/dL (0.70-1.30); POTASSIUM 4.9 mmol/L (3.5-5.1); TOTAL PROTEIN 4.9 g/dL (6.4-8.2)
[2022-12-22] MEDS: PROVENTIL NEB TX 0.083% 2.5MG/ 3ML IN PRN (08:38)
[2022-12-22] MEDS ORDERED: NS 50 ML IV 50 ML IV ONE (09:05)
[2022-12-22] MEDS: PEPCID 20 MG VIAL 20 MG in NS 50 ML IV 50 ML IV SCH (09:10)
[2022-12-22] MEDS: PROTONIX INJ 40 MG VIAL IVP SCH (09:10)
[2022-12-22 10:16] VITALS: BMI 26.2
[2022-12-22] MEDS ORDERED: AMIDATE INJ 40 MG VIAL ONE (11:20)
[2022-12-22] MEDS ORDERED: ZEMURON 100 MG VIAL ONE (11:21)
[2022-12-22] MEDS ORDERED: BRIDION ONE (11:22)
[2022-12-22] MEDS ORDERED: ROBINUL ONE (11:23)
[2022-12-22] MEDS ORDERED: NS 100 ML IV 100 ML ONE (11:55)
[2022-12-22] MEDS ORDERED: NS 1,000 ML IV 1,000 ML ONE ×3 (11:55→16:29)
[2022-12-22] MEDS ORDERED: ANCEF VIAL 1 GRAM ONE ×2 (11:55→11:56)
[2022-12-22] MEDS ORDERED: DUONEB 0.5 MG/3 MG (3 mL) NEB ONE ×2 (12:00→12:29)
[2022-12-22] MEDS ORDERED: HESPAN IV IN NS 500 ML IV ONE (12:12)
[2022-12-22] MEDS ORDERED: XYLOCAINE 2 % (PLAIN) ONE (12:17)
[2022-12-22] MEDS ORDERED: DECADRON INJ ONE ×2 (12:25→12:53)
[2022-12-22] MEDS ORDERED: REGLAN INJ 10 MG VIAL ONE (12:25)
[2022-12-22] MEDS ORDERED: ZOFRAN INJ 4 MG VIAL ONE ×2 (12:25→13:02)
[2022-12-22] MEDS ORDERED: ULTANE GAS IN ONE (12:53)
[2022-12-22] MEDS ORDERED: PRECEDEX INJ VIAL IVP ONE (12:53)
[2022-12-22] MEDS ORDERED: KETAMINE HCL ONE (12:53)
[2022-12-22] MEDS ORDERED: VERSED ONE (12:56)
[2022-12-22] MEDS ORDERED: FENTANYL VIAL INJ 100 mcg ONE (12:57)
--- NOTE | 2022-12-22 12:57 | RAD ---
HISTORYSMALL BOWEL OBSTRUCTIONSTUDYKUBCOMPARISONKUB 12/19/2022FINDINGSProbably less bowel dilatation than previously. The bowel loops in the left abdomen are superimposed so it is difficult to obtain an accurate diameter measurement. But overall it appears smaller.Gas is present in the rectum also, not present on prior study.No pneumoperitoneum.No significant abnormal calcification.Degenerative changes are present in the spine.Surgical clips are present in the right upper abdomen, probably from a cholecystectomy. There are also skin raz from abdominal wall hernia repair.IMPRESSION1. Findings suggesting decreased bowel dilatation2. No pneumoperitoneumElectronically signed by: Chase Sunshine (Dec 22, 2022 12:55:32)
[2022-12-22] MEDS ORDERED: NEO-SYNEPHRINE INJ ONE (13:02)
[2022-12-22] MEDS ORDERED: LACRI-LUBE S.O.P. ONE (13:58)
[2022-12-22] MEDS ORDERED: OFIRMEV IV 1000 MG VIAL 1,000 MG/100 ML VIAL IV ONE (13:58)
[2022-12-22] MEDS ORDERED: NS IRRIGATION* 500 ML IR ONE (14:22)
[2022-12-22] MEDS ORDERED: STERILE WATER IRRIGATION IR ONE (14:23)
[2022-12-22] MEDS ORDERED: VERSED 100 MG in NS 100 ML IV 80 ML IV PRN (14:57)
[2022-12-22] MEDS ORDERED: NS 500 ML IV 500 ML IV ONE ×3 (15:37→17:35)
[2022-12-22] MEDS ORDERED: LEVOPHED 8 MG/250 ML IV *PREMIX 8 MG/250 ML PLAST..BAG IV PRN (15:43)
[2022-12-22] MEDS ORDERED: NS 1,000 ML IV 1,000 ML IV ONE (16:29)
[2022-12-22] MEDS ORDERED: DILAUDID INJ ONE (16:33)
[2022-12-22] MEDS: DILAUDID INJ IVP PRN ×2 (16:39→18:01)
--- NOTE | 2022-12-22 16:43 | OR.IMMED ---
IMMEDIATE POST-OP NOTE Immediate Post-Op Note Pre-Op Diagnosis: small bowel obstruction Post-Op Diagnosis: same secondary to previous surgery of abdomen Procedure: Laparotomy and lysis of adhesions, resection terminal ileum, cecum and appendix and primary anastomosis Description of Procedure: see operativ summary Surgeon/Network Contract Manager: Stefani Findings: scattered adhesions, Dense adhesion across terminal ileum causing the obstruction with scarring Estimated Blood Loss: 250 cc Complications: none Progress Notes: Patient still intubated and taken to ICU for continued fluid resuscitation and weaning from ventilator, pain control Final Diagnosis: small bowel obstruction secondary to adhesions.
[2022-12-22 16:50] LABS: ABG BASE EXCESS -1.3 mmol/L (-2.0-2.0); ABG HCO3 23.7 mmol/L (22-26)
[2022-12-22] MEDS ORDERED: LACRI-LUBE S.O.P. AFFEYE SCH (17:00)
[2022-12-22 17:26] VITALS: TEMP 97.8
[2022-12-22] MEDS ORDERED: DILAUDID INJ IVP ONE (17:34)
--- NOTE | 2022-12-22 17:41 | PCM.PROG ---
Progress Note - Progress Note for Day of Date of Exam: 12/22/22 - Subjective Subjective: IS CURRENTLY INPATIENT STATUS FOR TREATMENT OF SMALL BOWEL OBSTRUCTION, ACUTE KIDNEY INJURY, NAUSEA AND VOMITING, AND GENERALIZED WEAKNESS. HE HAS A PMH OF ANEMIA, ARTHRITIS, ASTHMA, CHF, COPD, CAD, CVA, DEMENTIA, DYSLIPIDEMIA, GERD, HTN, KIDNEY STONES, WI, CARDIAC STENTS, AND CABG. TODAY, HE IS ALERT AND ORIENTED, SITTING UP IN BED ON [employer] CAP[employer]. HIS SPOUSE IS AT BEDSIDE. NURSES REPORT THAT HE HAS HAD AN UNEVENTFUL NIGHT. NURSING STAFF REPORTS THAT PATIENT CONTINUES TO HAVE INTERMITTENT NAUSEA AND VOMITING. ON EXAMINATION TODAY, HE IS TACHYCARDIC WITH HR IN THE 100-115 BPM. BILATERAL LUNGS ARE NOTED WITH DIMINISHED LUNG SOUNDS THROUGHOUT. ABDOMEN IS DISTENDED, BUT IS NOT TENDER. HYPOACTIVE BOWEL SOUNDS NOTED. TRACE EDEMA NOTED TO BILATERAL LOWER EXTREMITIES. HIS VITALS THIS MORNING ARE: 98.6-103-21-99%-151/67. HE IS CURRENTLY UTILIZING OXYGEN VIA OXY MASK AT 5 LITERS/MINUTE. LABS WERE OBTAINED. WBC 7.9, RBC 3.69, HGB 10.5, HCT 32.1, PLT COUNT 178, SODIUM 147, POTASSIUM 4.9, CHLORIDE 110, CARBON DIOXIDE 33.1, BUN 69, CREATININE 2.56, GLUCOSE 115, CALCIUM 9.8, TOTAL BILI 0.40, AST 21, ALT 33, ALT 36, BNP 109, TOTAL PROTEIN 4.9, ALBUMIN 2.1. BLOOD CULTURES ARE PENDING. KUB OBTAINED AND REVEALED: Findings suggesting decreased bowel dilatation 2. No pneumoperitoneum. HE IS CURRENTLY RECEIVING D51/2 NS AT 125 ML/HR, ZOSYN 3.375G IV TID, HALDOL 2-4MG IV Q4H PRN, LOPRESSOR 5MG IV Q8H, MORPHINE 4MG IV Q4H PRN, ZOFRAN 4MG IV Q6H PRN. PLANS TO TAKE HIM TO THE OR THIS MORNING TO RELIEVE HIS BOWEL OBSTRUCTION. WE ARE IN AGREEMENT WITH HIS PLANS. OTHERWISE, WE WILL CONTINUE WITH CURRENT PLAN OF CARE TODAY. OTHERWISE, WE WILL FOLLOW-UP WITH AM LABS AND CONTINUE TO MONITOR. TIME SPENT ON CLINICAL ASSESSMENT, REVIEWING LABS AND IMAGING, DECISION MAKING, AND DOCUMENTATION GREATER THAN 45 MINUTES. - Past Medical Family Social History Past Med/Fam/Surg Hx: No changes since H&P Allergies: Allergies No Known Drug Allergies Allergy (Verified 12/14/21 08:57) - Review of Systems ROS: No change since H&P - Vital Signs and I&O's Vital Signs: Temperature 97.8 F Temperature 98.2 F Pulse Rate [Right Brachial] 149 Pulse Rate 107 Pulse Rate 110 Respiratory Rate 12 Respiratory Rate 20 Blood Pressure [Left Arm] 134/68 Blood Pressure [Right Arm] 177/82 Blood Pressure 69/41 Blood Pressure 138/76 O2 Sat by Pulse Oximetry 100 O2 Sat by Pulse Oximetry 96 Intake and Output: Intake & Output 12/20/22 12/21/22 12/22/22 12/23/22 11:59 11:59 11:59 11:59 Intake Total 3580 / 3580 3318 / 3318 1515 / 1515 3502 / 3502 Output Total 2940 / 2940 2320 / 2320 1220 / 1220 2500 / 2500 Balance 640 / 640 998 / 998 295 / 295 1002 / 1002 - Physical Exam Oriented: Person, Place Eyes: Normal Ear: Normal Nose: Normal Throat: Normal Respiratory: Generalized, Diminished Cardiovascular: Tachycardia : Normal Auscultation: Bowel Sounds: Decreased Tenderness: RLQ, LLQ, Mild Skin: Normal Musculoskeletal: Normal Psychiatric: Normal Mood Description: Calm Affect: Normal Speech Pattern: Clear - Laboratory and Diagnostics Result Diagrams: 12/22/22 04:34 12/22/22 04:34 Labs: 12/18/22 14:55 Blood Blood Culture - Preliminary 12/18/22 15:00 Blood Blood Culture - Preliminary Laboratory WBC 7.9 X10^3/uL (3.6-10.0) 12/22/22 04:34 RBC 3.69 X10^6/uL (4.7-6.0) L 12/22/22 04:34 Hgb 10.5 g/dL (13.5-18.0) L 12/22/22 04:34 Hct 32.1 % (42.0-54.0) L 12/22/22 04:34 MCV 87.0 fL (80.0-100.0) 12/22/22 04:34 MCH 28.5 pg (27.0-34.0) 12/22/22 04:34 MCHC 32.8 g/dL (33.0-35.0) L 12/22/22 04:34 RDW 15.9 % (11.6-16.5) 12/22/22 04:34 Plt Count 178 X10^3/uL (150.0-450.0) 12/22/22 04:34 MPV 8.4 fL (7.4-11.0) 12/22/22 04:34 Neut % (Auto) 74.8 % (42.0-75.0) 12/22/22 04:34 Lymph % (Auto) 9.1 % (21.0-51.0) L 12/22/22 04:34 Harvey % (Auto) 14.2 % (0.0-13.0) H 12/22/22 04:34 Eos % (Auto) 1.7 % (0.9-2.9) 12/22/22 04:34 Baso % (Auto) 0.2 % (0.2-1.0) 12/22/22 04:34 Neut # (Auto) 5.9 x10^3/uL (2.2-4.8) H 12/22/22 04:34 Lymph # (Auto) 0.7 X10^3/uL (1.3-2.9) L 12/22/22 04:34 Harvey # (Auto) 1.1 x10^3/uL (0.3-0.8) H 12/22/22 04:34 Eos # (Auto) 0.1 x10^3/uL (0.0-0.2) 12/22/22 04:34 Baso # (Auto) 0.0 X10^3/uL (0.0-0.1) 12/22/22 04:34 Absolute Nucleated RBC 0.0 /100WBC 12/22/22 04:34 Sample Site Rr 12/22/22 16:44 ABG pH 7.380 (7.35-7.45) 12/22/22 16:44 ABG pCO2 40.0 mmHg (35.0-45.0) 12/22/22 16:44 ABG pO2 235.0 mmHg (80.0-100.0) H 12/22/22 16:44 ABG HCO3 23.7 mmol/L (22-26) 12/22/22 16:44 ABG O2 Saturation 100.0 % (90-100) 12/22/22 16:44 ABG Base Excess -1.3 mmol/L (-2.0-2.0) 12/22/22 16:44 Maxwell Test Na 12/22/22 16:44 A-a Gradient 143.0 mmHg 12/22/22 16:44 FiO2 60.0 12/22/22 16:44 Blood Gas Comments Cn/gb 12/22/22 16:44 Sodium 147 mmol/L (136-145) H 12/22/22 04:34 Corrected Sodium 147 mmol/L (136-145) H 12/22/22 04:34 Potassium 4.9 mmol/L (3.5-5.1) 12/22/22 04:34 Chloride 110 mmol/L (98-107) H 12/22/22 04:34 Carbon Dioxide 33.1 mmol/L (21-32) H 12/22/22 04:34 BUN 69 mg/dL (7-18) H 12/22/22 04:34 Creatinine 2.56 mg/dL (0.70-1.30) H 12/22/22 04:34 Est GFR (MDRD) Af Amer 32 (>60) L 12/22/22 04:34 Est GFR (MDRD) Non-Af 26 (>60) L 12/22/22 04:34 Glucose 115 mg/dL (65-99) H 12/22/22 04:34 POC Glucose (mg/dL) 102 mg/dL (65-99) H 12/21/22 20:04 Lactic Acid 1.5 mmol/L (0.4-2.0) 12/18/22 18:24 Calcium 9.8 mg/dL (8.5-10.1) 12/22/22 04:34 Corrected Calcium 11.3 mg/dL (8.5-10.1) H 12/22/22 04:34 Total Bilirubin 0.40 mg/dL (0.2-1.0) 12/22/22 04:34 AST 21 Units/L (15-37) 12/22/22 04:34 ALT 33 Units/L (12-78) 12/22/22 04:34 Alkaline Phosphatase 36 Units/L (46-116) L 12/22/22 04:34 B-Natriuretic Peptide 109 pg/mL (0-79) H 12/22/22 04:34 Total Protein 4.9 g/dL (6.4-8.2) L 12/22/22 04:34 Albumin 2.1 g/dL (3.4-5.0) L 12/22/22 04:34 Globulin 2.8 g/dL (2.5-4.5) 12/22/22 04:34 Albumin/Globulin Ratio 0.8 Ratio (1.1-2.1) L 12/22/22 04:34 Lipase 53 Units/L (73-393) L 12/18/22 14:55 Specimen Type Clean catch urine 12/18/22 15:46 Urine Color Yellow (YELLOW) 12/18/22 15:46 Urine Appearance Clear (CLEAR) 12/18/22 15:46 Urine pH 5.0 (5.0 - 8.0) 12/18/22 15:46 Ur Specific Mccaskill 1.020 (1.000-1.030) 12/18/22 15:46 Urine Protein 2+ (NEGATIVE) 12/18/22 15:46 Urine Glucose (UA) Negative (NEGATIVE) 12/18/22 15:46 Urine Ketones 1+ (NEGATIVE) 12/18/22 15:46 Urine Blood 1+ (NEGATIVE) 12/18/22 15:46 Urine Nitrite Negative (NEGATIVE) 12/18/22 15:46 Urine Bilirubin Negative (NEGATIVE) 12/18/22 15:46 Urine Urobilinogen Normal (NORMAL) 12/18/22 15:46 Ur Leukocyte Esterase 1+ (NEGATIVE) 12/18/22 15:46 Urine RBC 0-2 /HPF (0-3) 12/18/22 15:46 Urine WBC 3-5 /HPF (0-5) 12/18/22 15:46 Ur Squamous Epith Cells Rare /HPF (NEGATIVE) 12/18/22 15:46 Urine Bacteria Negative /HPF (NEGATIVE) 12/18/22 15:46 Ur Culture Indicated? No/not indicated 12/18/22 15:46 Blood Type O POSITIVE 12/22/22 12:01 Antibody Screen Negative 12/22/22 12:01 - Plan (1) Small bowel obstruction Status: Acute Plan: D51/2 NS AT 125 ML/HR, ZOSYN 3.375G IV TID, HALDOL 2-4MG IV Q4H PRN, LOPRESSOR 5MG IV Q8H, MORPHINE 4MG IV Q4H PRN, ZOFRAN 4MG IV Q6H PRN (2) Acute nontraumatic kidney injury Status: Acute Plan: D51/2 NS AT 125 ML/HR (3) Nausea and vomiting Status: Acute Qualifiers: Vomiting type: bilious vomiting Qualified Code(s): R11.14 - Bilious vomiting (4) Generalized weakness Status: Acute (5) CHF (congestive heart failure) Status: Chronic Qualifiers: Heart failure type: unspecified Heart failure chronicity: chronic Qualifi ed Code(s): I50.9 - Heart failure, unspecified Plan: HOLD DIURETICS DUE TO RENAL INJURY (6) Hypertension Status: Chronic Qualifiers: Hypertension type: primary hypertension Qualified Code(s): I10 - Essential (primary) hypertension Plan: LOPRESSOR 5MG IV Q8H
[2022-12-22 17:49] VITALS: PULSE 116; O2SAT 84
--- NOTE | 2022-12-22 18:00 | EKG ---
Test Reason : gladis Blood Pressure : */* mmHG Vent. Rate : 46 BPM Atrial Rate : 46 BPM P-R Int : 120 ms QRS Dur : 88 ms QT Int : 356 ms P-R-T Axes : 85 -44 74 degrees QTc Int : 311 ms Sinus bradycardia Left axis deviation Pulmonary disease pattern Septal infarct (cited on or before 21-DEC-2022) Abnormal ECG When compared with ECG of 21-DEC-2022 07:34, Vent. rate has decreased BY 64 BPM QRS axis shifted left Borderline criteria for Lateral infarct are no longer present Confirmed by Fran Ny ([id number]) on 12/22/2022 8:18:38 PM Referred By: Confirmed By: Fran Ny
[2022-12-22] MEDS ORDERED: ATROPINE SULFATE ABBOJECT IVP ONE ×3 (18:19→18:59)
[2022-12-22] MEDS ORDERED: ADRENALINE CHL INJ (ABBOJECT) IVP ONE ×4 (18:46→18:51)
[2022-12-22] MEDS ORDERED: SODIUM BICARBONATE 8.4% INJ ADULT IVP ONE ×5 (18:48→19:28)
[2022-12-22 20:05] VITALS: BP 79/26
--- NOTE | 2022-12-22 23:29 | DR.OPNOTE ---
OP NOTE Pre-Op Diagnosis: Small bowel obstruction Post-Op Diagnosis: same Procedure Date Date Of Procedure: 12/22/22 Procedure: PROCEDURE: Laparotomy with lysis of adhesions especially dense adhesion across the terminal ileum causing stricturing of the terminal ileum with subsequent resection of the terminal ileum ,cecum, and appendix with ileocecal anastomosis NARRATIVE : The patient was taken to the operative suite and placed in the supine position. General endotracheal anesthesia was induced using rapid sequence. The patient had a nasogastric tube in his pharynx which could not be removed in the ICU . Once anesthesia induced it was removed without difficulty. A new nasogastric tube was placed to suction out his stomach. Abdomen prepped and draped in sterile fashion. Time out for the procedure obtained Incision made in the midline epigastrium with a # 10 knife extending through the midline fascia . Peritoneum opened with Metzenbaum scissors . Dissection continued caudad dividing the laparoscopic placed mesh used to rep air a midline hernia from an old aorto-bifemoral bypass .Once the mesh in the midline incision divided, the incision completed below the umbilicus and the omentum was peeled off the mesh using blunt and sharp dissection. Small bowel was markedly dilated. Starting at the ligament of Treitz the small bowel was traced down dividing flimsy adhesions . At the ileo -cecal valve there was a very dense adhesion with complete obstruction of all the small bowel proximal to this. This band was divided between clamps and tied with silk ties. Because of the stricture here it was elected to resect the terminal ileum, cecum and appendix. White line of Toldt was divided and the cecum elevated into the incision. Ileum and cecum were divided with fires of the BI stapler. The mesentery of this section of bowel scored with Metzenbaum scissors and the mesentery divided between clamps and tied with silk ties removing this specimen. The abdomen was irrigated and suctioned free. The ileum and cecum approximated [id number] with interrupted silk sutures. Laparotomy pads placed around this area and the bowel was clamped with bowel clamps . Each portion of the bowel opened with electrocautery and the GI stapler placed into these openings creating an anastomosis. The remaining defect closed with another fire of the BI stapler. The mesenteric defect closed with running 3-0 Vicryl suture . Small bowel contents were milked back into the stomach and evacuated. The abdomen irrigated and suctioned free again. All bowel placed back in the abdomen . The position of the nasogastric tube confirmed in the stomach . Steele fascia including the previously placed mesh was closed with running looped 0 monofilament suture . Skin closed with skin Gregory. Patient remained intubated and was taken back to the ICU. He was stable during the entire operative procedure. Type of Anesthesia: General Anesthetic w/ETT Findings: Multiple adhesions of small bowel with dense adhesion across distal ileum at the ileocecal valve with complete bowel obstruction Specimen/Pathology: terminal ileum, cecum and appendix Type of Fluids Used:: Lactated Ringers Urine output: 250 cc EBL: 250 cc Complications:: none intraoperatively Needle/Sponge Count:: correct Disposition/Condition: Pt. tolerated procedure without difficulty. Remained intubated and taken to the ICU in stable condition.
--- NOTE | 2022-12-22 23:50 | W.DIS.FURT ---
Summary of Discharge Discharge Summary of Date Date of Exam: 12/22/22 Admission Date Date of Admission: 12/18/22 Admission Diagnosis Patient Problems (Updated 12/19/22 @ 18:24 by Jed Alcala) Nausea and vomiting (Acute) R11.2 Generalized weakness (Acute) R53.1 CHF (congestive heart failure) (Chronic) I50.9 Hypertension (Chronic) I10 Small bowel obstruction (Acute) K56.609 Acute nontraumatic kidney injury (Acute) N17.9 Hospital Course: This 72 year old male presented to the emergency room after several months of abdominal pain which was worse on the day of admission and presented with abdominal distension, nausea and vomiting. CT scan was obtained that was consistent with small bowel obstruction. He had a history of an aorto-bifemoral bypass graft and had mesh in the midline presumably from a laparoscopic hernia repair . He had a history of coronary disease, old stroke with no residual and dementia. He gave no history of chest pain and his cardiac status has been sta ble for several years . On presentation creatinine was greater than 3 which is markedly elevated from previous studies. He had a Jimenez catheter and nasogastric tube placed. Nasogastric tube remained on suction and he did not pass flatus or bowel movements. He was hydrated in hopes that his rising creatinine was prerenal but despite IV administration it remained approximately 3. His urine output was adequate . He did have some wheezing, BNP only mildly elevated to 130 and was treated with Lasix . Because he did not get better surgery was planned. He would become confused and pulled out his nasogastric tube several times. When placed the last time by the nurses the nasoagastric tube got stuck in his pharynx and had to be removed the day of surgery after general anesthesia induced . Laparotomy with lysis of adhesions and a band across the terminal ileum caused the obstruction . 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 He was stable during the entire case and taken back to the ICU still intubated. I expected he would require fluids as he would third space a lot of fluid. He was hypotensive in the ICU requiring fluid administration and a levophed drip. His pressure was coming up it was greater than 120 mm of mercury systolic when he became bradycardic and subsequently asystolic and could not be resuscitated despite ACLS protocol. All of these events discussed with the patient's by me and all of her questions answered. Vital Signs: Vital Signs (72 hours) 12/22/22 00:02 12/20/22 13:18 12/19/22 23:46 Temperature 97.7 F 99.7 F H 99.3 F Pulse Rate 101 H 120 H Pulse Rate [Right Brachial] 109 H Respiratory Rate 30 H 24 20 Blood Pressure 124/73 162/84 Blood Pressure [Left Arm] 143/60 O2 Sat by Pulse Oximetry 100 93 L 94 L Oxygen Delivery Method Nasal Cannula Oxygen Flow Rate 2 FIO2% 12/20/22 04:00 12/20/22 03:12 12/20/22 03:42 Temperature 97.7 F Pulse Rate Pulse Rate [Right Brachial] 108 H Respiratory Rate 21 20 20 Blood Pressure Blood Pressure [Left Arm] 111/71 O2 Sat by Pulse Oximetry 98 Oxygen Delivery Method Nasal Cannula Oxygen Flow Rate 2 FIO2% 12/20/22 08:56 12/20/22 09:18 12/20/22 08:00 Temperature 98.4 F Pulse Rate Pulse Rate [Right Brachial] 136 H Respiratory Rate 28 H Blood Pressure 138/76 Blood Pressure [Left Arm] 119/64 O2 Sat by Pulse Oximetry 93 L Oxygen Delivery Method Nasal Cannula Nasal Cannula Oxygen Flow Rate 2 2 FIO2% 28 12/20/22 12:00 12/20/22 07:00 12/20/22 16:00 Temperature 99.7 F H 98.6 F Pulse Rate Pulse Rate [Right Brachial] 120 H 134 H Respiratory Rate 24 22 Blood Pressure Blood Pressure [Left Arm] 162/84 143/65 O2 Sat by Pulse Oximetry 93 L 94 L Oxygen Delivery Method Nasal Cannula Nasal Cannula Nasal Cannula Oxygen Flow Rate 2 2 2 FIO2% 12/20/22 07:45 12/20/22 20:00 12/20/22 20:45 Temperature 97.6 F Pulse Rate 120 H Pulse Rate [Right Brachial] 124 H Respiratory Rate 22 Blood Pressure Blood Pressure [Left Arm] 120/75 O2 Sat by Pulse Oximetry 94 L 93 L Oxygen Delivery Method Nasal Cannula Nasal Cannula Oxygen Flow Rate 2 2 FIO2% 28 12/20/22 19:00 12/20/22 22:40 12/20/22 23:10 Temperature Pulse Rate Pulse Rate [Right Brachial] Respiratory Rate 25 H 24 Blood Pressure Blood Pressure [Left Arm] O2 Sat by Pulse Oximetry Oxygen Delivery Method Nasal Cannula Oxygen Flow Rate 2 FIO2% 12/21/22 00:00 12/21/22 04:00 12/21/22 07:38 Temperature 97.6 F 98.4 F Pulse Rate Pulse Rate [Right Brachial] 129 H 131 H Respiratory Rate 21 23 Blood Pressure 144/73 Blood Pressure [Left Arm] 128/64 172/80 O2 Sat by Pulse Oximetry 97 96 Oxygen Delivery Method Nasal Cannula Nasal Cannula Oxygen Flow Rate 2 2 FIO2% 12/21/22 08:00 12/21/22 07:00 12/21/22 12:00 Temperature 97.7 F 99.4 F Pulse Rate Pulse Rate [Right Brachial] 135 H 149 H Respiratory Rate 32 H 20 Blood Pressure Blood Pressure [Left Arm] 144/73 134/68 O2 Sat by Pulse Oximetry 92 L 97 Oxygen Delivery Method Nasal Cannula Nasal Cannula Nasal Cannula Oxygen Flow Rate 2 2 2 FIO2% 12/21/22 11:31 12/21/22 11:45 12/21/22 12:00 Temperature Pulse Rate 122 H 128 H Pulse Rate [Right Brachial] Respiratory Rate Blood Pressure 110/74 Blood Pressure [Left Arm] O2 Sat by Pulse Oximetry 97 99 Oxygen Delivery Method Oxygen Flow Rate FIO2% 12/21/22 12:00 12/21/22 13:30 12/21/22 14:00 Temperature Pulse Rate 126 H Pulse Rate [Right Brachial] Respiratory Rate 27 H 25 H 25 H Blood Pressure Blood Pressure [Left Arm] O2 Sat by Pulse Oximetry 95 Oxygen Delivery Method Oxygen Flow Rate FIO2% 12/21/22 14:53 12/21/22 12:15 12/21/22 12:30 Temperature Pulse Rate 125 H 127 H Pulse Rate [Right Brachial] Respiratory Rate 33 H 34 H Blood Pressure 130/62 Blood Pressure [Left Arm] O2 Sat by Pulse Oximetry 100 97 Oxygen Delivery Method Oxygen Flow Rate FIO2% 12/21/22 12:31 12/21/22 12:31 12/21/22 12:31 Temperature Pulse Rate 128 H Pulse Rate [Right Brachial] Respiratory Rate 28 H Blood Pressure 84/68 84/68 Blood Pressure [Left Arm] O2 Sat by Pulse Oximetry 94 L Oxygen Delivery Method Oxygen Flow Rate FIO2% 12/21/22 12:45 12/21/22 13:00 12/21/22 13:00 Temperature Pulse Rate 129 H 132 H Pulse Rate [Right Brachial] Respiratory Rate 31 H 39 H Blood Pressure 145/70 Blood Pressure [Left Arm] O2 Sat by Pulse Oximetry 94 L 88 L Oxygen Delivery Method Oxygen Flow Rate FIO2% 12/21/22 13:15 12/21/22 13:30 12/21/22 13:30 Temperature Pulse Rate 134 H 131 H Pulse Rate [Right Brachial] Respiratory Rate 31 H 29 H Blood Pressure 154/73 Blood Pressure [Left Arm] O2 Sat by Pulse Oximetry 95 Oxygen Delivery Method Oxygen Flow Rate FIO2% 12/21/22 13:45 12/21/22 14:00 12/21/22 14:01 Temperature Pulse Rate 126 H 123 H 122 H Pulse Rate [Right Brachial] Respiratory Rate Blood Pressure Blood Pressure [Left Arm] O2 Sat by Pulse Oximetry 98 98 98 Oxygen Delivery Method Oxygen Flow Rate FIO2% 12/21/22 14:01 12/21/22 14:15 12/21/22 14:30 Temperature Pulse Rate 124 H 129 H Pulse Rate [Right Brachial] Respiratory Rate 25 H 29 H Blood Pressure 116/68 Blood Pressure [Left Arm] O2 Sat by Pulse Oximetry 98 98 Oxygen Delivery Method Oxygen Flow Rate FIO2% 12/21/22 14:31 12/21/22 14:31 12/21/22 14:45 Temperature Pulse Rate 128 H 128 H Pulse Rate [Right Brachial] Respiratory Rate 29 H 28 H Blood Pressure 130/59 Blood Pressure [Left Arm] O2 Sat by Pulse Oximetry 97 99 Oxygen Delivery Method Oxygen Flow Rate FIO2% 12/21/22 15:00 12/21/22 15:01 12/21/22 15:01 Temperature Pulse Rate 101 H 98 H Pulse Rate [Right Brachial] Respiratory Rate 22 19 Blood Pressure 142/57 Blood Pressure [Left Arm] O2 Sat by Pulse Oximetry Oxygen Delivery Method Oxygen Flow Rate FIO2% 12/21/22 15:15 12/21/22 15:30 12/21/22 15:30 Temperature Pulse Rate 93 H 91 H Pulse Rate [Right Brachial] Respiratory Rate 19 19 Blood Pressure 100/60 Blood Pressure [Left Arm] O2 Sat by Pulse Oximetry 100 98 Oxygen Delivery Method Oxygen Flow Rate FIO2% 12/21/22 15:45 12/21/22 16:00 12/21/22 16:00 Temperature Pulse Rate 93 H 96 H Pulse Rate [Right Brachial] Respiratory Rate 23 29 H Blood Pressure 100/64 Blood Pressure [Left Arm] O2 Sat by Pulse Oximetry 98 100 Oxygen Delivery Method Oxygen Flow Rate FIO2% 12/21/22 16:15 12/21/22 16:30 12/21/22 16:31 Temperature Pulse Rate 96 H 96 H 96 H Pulse Rate [Right Brachial] Respiratory Rate 30 H 33 H 30 H Blood Pressure Blood Pressure [Left Arm] O2 Sat by Pulse Oximetry 100 100 100 Oxygen Delivery Method Oxygen Flow Rate FIO2% 12/21/22 16:31 12/21/22 16:45 12/21/22 17:00 Temperature Pulse Rate 97 H Pulse Rate [Right Brachial] Respiratory Rate 27 H Blood Pressure 117/74 125/70 Blood Pressure [Left Arm] O2 Sat by Pulse Oximetry 99 Oxygen Delivery Method Oxygen Flow Rate FIO2% 12/21/22 17:00 12/21/22 17:15 12/21/22 17:30 Temperature Pulse Rate 95 H 98 H Pulse Rate [Right Brachial] Respiratory Rate 23 27 H Blood Pressure 126/72 Blood Pressure [Left Arm] O2 Sat by Pulse Oximetry 99 100 Oxygen Delivery Method Oxygen Flow Rate FIO2% 12/21/22 17:30 12/21/22 17:45 12/21/22 18:00 Temperature Pulse Rate 99 H 107 H Pulse Rate [Right Brachial] Respiratory Rate 31 H 24 Blood Pressure 122/67 Blood Pressure [Left Arm] O2 Sat by Pulse Oximetry 98 99 Oxygen Delivery Method Oxygen Flow Rate FIO2% 12/21/22 18:00 12/21/22 19:00 12/21/22 19:00 Temperature Pulse Rate 100 H Pulse Rate [Right Brachial] Respiratory Rate 30 H Blood Pressure 128/70 Blood Pressure [Left Arm] O2 Sat by Pulse Oximetry 100 Oxygen Delivery Method Nasal Cannula Oxygen Flow Rate 2 FIO2% 12/21/22 20:00 12/21/22 20:00 12/21/22 21:00 Temperature 97.7 F Pulse Rate 101 H Pulse Rate [Right Brachial] Respiratory Rate 30 H Blood Pressure 114/66 124/73 Blood Pressure [Left Arm] O2 Sat by Pulse Oximetry 100 Oxygen Delivery Method Oxygen Flow Rate FIO2% 12/21/22 21:00 12/21/22 21:20 12/21/22 22:01 Temperature Pulse Rate 105 H Pulse Rate [Right Brachial] Respiratory Rate 34 H Blood Pressure 124/73 102/57 Blood Pressure [Left Arm] O2 Sat by Pulse Oximetry 100 Oxygen Delivery Method Oxygen Flow Rate FIO2% 12/21/22 22:01 12/21/22 23:00 12/21/22 23:02 Temperature Pulse Rate 87 102 H Pulse Rate [Right Brachial] Respiratory Rate 15 23 Blood Pressure 137/82 Blood Pressure [Left Arm] O2 Sat by Pulse Oximetry 99 100 Oxygen Delivery Method Oxygen Flow Rate FIO2% 12/22/22 00:00 12/22/22 00:00 12/22/22 00:18 Temperature 98.1 F Pulse Rate 111 H Pulse Rate [Right Brachial] Respiratory Rate 28 H 25 H Blood Pressure 140/87 Blood Pressure [Left Arm] O2 Sat by Pulse Oximetry 98 Oxygen Delivery Method Oxygen Flow Rate FIO2% 12/22/22 00:43 12/22/22 01:00 12/22/22 01:00 Temperature Pulse Rate 107 H Pulse Rate [Right Brachial] Respiratory Rate 21 22 Blood Pressure 126/80 Blood Pressure [Left Arm] O2 Sat by Pulse Oximetry 100 Oxygen Delivery Method Oxygen Flow Rate FIO2% 12/22/22 02:00 12/22/22 02:00 12/22/22 03:00 Temperature Pulse Rate 109 H Pulse Rate [Right Brachial] Respiratory Rate 22 Blood Pressure 137/63 117/62 Blood Pressure [Left Arm] O2 Sat by Pulse Oximetry 96 Oxygen Delivery Method Oxygen Flow Rate FIO2% 12/22/22 03:00 12/22/22 04:00 12/22/22 04:00 Temperature 98.4 F Pulse Rate 100 H 101 H Pulse Rate [Right Brachial] Respiratory Rate 12 12 Blood Pressure 107/62 Blood Pressure [Left Arm] O2 Sat by Pulse Oximetry 99 99 Oxygen Delivery Method Oxygen Flow Rate FIO2% 12/22/22 05:00 12/22/22 05:00 12/22/22 05:05 Temperature Pulse Rate 107 H Pulse Rate [Right Brachial] Respiratory Rate 16 Blood Pressure 110/71 110/71 Blood Pressure [Left Arm] O2 Sat by Pulse Oximetry 100 Oxygen Delivery Method Oxygen Flow Rate FIO2% 12/22/22 06:00 12/22/22 06:00 12/21/22 22:05 Temperature Pulse Rate 93 H Pulse Rate [Right Brachial] Respiratory Rate 15 Blood Pressure 112/61 Blood Pressure [Left Arm] O2 Sat by Pulse Oximetry 100 Oxygen Delivery Method Oxy Mask Oxygen Flow Rate 5 FIO2% 40 12/22/22 08:38 12/22/22 08:38 12/22/22 07:00 Temperature Pulse Rate Pulse Rate [Right Brachial] Respiratory Rate Blood Pressure Blood Pressure [Left Arm] O2 Sat by Pulse Oximetry 100 Oxygen Delivery Method Oxy Mask Oxy Mask Oxygen Flow Rate 5 5 FIO2% 40 12/22/22 07:00 12/22/22 08:00 12/22/22 09:00 Temperature 98.6 F Pulse Rate 103 H 105 H 107 H Pulse Rate [Right Brachial] Respiratory Rate 21 16 16 Blood Pressure 151/67 124/62 148/73 Blood Pressure [Left Arm] O2 Sat by Pulse Oximetry 99 98 98 Oxygen Delivery Method Oxygen Flow Rate FIO2% 12/22/22 10:00 12/22/22 11:40 12/22/22 11:00 Temperature Pulse Rate 112 H 109 H 113 H Pulse Rate [Right Brachial] Respiratory Rate 16 16 16 Blood Pressure 107/59 154/102 121/58 Blood Pressure [Left Arm] O2 Sat by Pulse Oximetry 100 97 98 Oxygen Delivery Method Oxy Mask Oxygen Flow Rate FIO2% 12/22/22 16:39 12/22/22 15:02 12/22/22 15:07 Temperature 97.8 F Pulse Rate 108 H Pulse Rate [Right Brachial] Respiratory Rate 12 12 12 Blood Pressure 104/81 87/50 Blood Pressure [Left Arm] O2 Sat by Pulse Oximetry 100 Oxygen Delivery Method Oxygen Flow Rate FIO2% 12/22/22 15:09 12/22/22 15:10 12/22/22 15:30 Temperature Pulse Rate 96 H 108 H 110 H Pulse Rate [Right Brachial] Respiratory Rate 12 12 12 Blood Pressure 96/51 134/75 107/59 Blood Pressure [Left Arm] O2 Sat by Pulse Oximetry 100 100 100 Oxygen Delivery Method Oxygen Flow Rate FIO2% 12/22/22 15:35 12/22/22 15:41 12/22/22 15:54 Temperature Pulse Rate 111 H 107 H 109 H Pulse Rate [Right Brachial] Respiratory Rate 12 12 12 Blood Pressure 75/50 69/41 108/53 Blood Pressure [Left Arm] O2 Sat by Pulse Oximetry 100 100 80 L Oxygen Delivery Method Oxygen Flow Rate FIO2% 12/22/22 16:00 12/22/22 16:05 12/22/22 16:10 Temperature Pulse Rate 109 H 116 H 115 H Pulse Rate [Right Brachial] Respiratory Rate 12 12 12 Blood Pressure 120/65 105/57 107/55 Blood Pressure [Left Arm] O2 Sat by Pulse Oximetry 85 L 84 L 92 L Oxygen Delivery Method Oxygen Flow Rate FIO2% 12/22/22 15:41 12/22/22 15:41 12/22/22 15:54 Temperature Pulse Rate 107 H 109 H Pulse Rate [Right Brachial] Respiratory Rate 12 12 Blood Pressure 69/41 Blood Pressure [Left Arm] O2 Sat by Pulse Oximetry 91 L 80 L Oxygen Delivery Method Oxygen Flow Rate FIO2% 12/22/22 15:54 12/22/22 16:00 12/22/22 16:00 Temperature Pulse Rate 109 H Pulse Rate [Right Brachial] Respiratory Rate 12 Blood Pressure 108/53 120/65 Blood Pressure [Left Arm] O2 Sat by Pulse Oximetry 85 L Oxygen Delivery Method Oxygen Flow Rate FIO2% 12/22/22 16:05 12/22/22 16:05 12/22/22 16:10 Temperature Pulse Rate 116 H Pulse Rate [Right Brachial] Respiratory Rate 14 Blood Pressure 105/57 107/55 Blood Pressure [Left Arm] O2 Sat by Pulse Oximetry 84 L Oxygen Delivery Method Oxygen Flow Rate FIO2% 12/22/22 16:10 12/22/22 16:15 12/22/22 16:15 Temperature Pulse Rate 115 H 115 H Pulse Rate [Right Brachial] Respiratory Rate 12 12 Blood Pressure 93/50 Blood Pressure [Left Arm] O2 Sat by Pulse Oximetry 100 Oxygen Delivery Method Oxygen Flow Rate FIO2% 12/22/22 16:19 12/22/22 16:19 12/22/22 16:20 Temperature Pulse Rate 116 H 116 H Pulse Rate [Right Brachial] Respiratory Rate 12 12 Blood Pressure 81/51 Blood Pressure [Left Arm] O2 Sat by Pulse Oximetry 100 98 Oxygen Delivery Method Oxygen Flow Rate FIO2% 12/22/22 16:20 12/22/22 16:25 12/22/22 16:25 Temperature Pulse Rate 116 H Pulse Rate [Right Brachial] Respiratory Rate 12 Blood Pressure 78/47 86/48 Blood Pressure [Left Arm] O2 Sat by Pulse Oximetry 100 Oxygen Delivery Method Oxygen Flow Rate FIO2% 12/22/22 16:30 12/22/22 16:30 12/22/22 16:43 Temperature Pulse Rate 116 H Pulse Rate [Right Brachial] Respiratory Rate 12 Blood Pressure 103/54 88/47 Blood Pressure [Left Arm] O2 Sat by Pulse Oximetry 96 Oxygen Delivery Method Oxygen Flow Rate FIO2% 12/22/22 16:43 12/22/22 16:45 12/22/22 16:45 Temperature Pulse Rate 116 H 121 H Pulse Rate [Right Brachial] Respiratory Rate 12 21 Blood Pressure 114/55 Blood Pressure [Left Arm] O2 Sat by Pulse Oximetry 69 L Oxygen Delivery Method Oxygen Flow Rate FIO2% 12/22/22 16:50 12/22/22 16:50 12/22/22 16:55 Temperature Pulse Rate 119 H 120 H Pulse Rate [Right Brachial] Respiratory Rate 12 15 Blood Pressure 88/65 Blood Pressure [Left Arm] O2 Sat by Pulse Oximetry 99 100 Oxygen Delivery Method Oxygen Flow Rate FIO2% 12/22/22 16:55 12/22/22 16:59 12/22/22 16:59 Temperature Pulse Rate 124 H Pulse Rate [Right Brachial] Respiratory Rate 12 Blood Pressure 82/51 92/50 Blood Pressure [Left Arm] O2 Sat by Pulse Oximetry 100 Oxygen Delivery Method Oxygen Flow Rate FIO2% 12/22/22 17:00 12/22/22 17:00 12/22/22 17:05 Temperature Pulse Rate 124 H Pulse Rate [Right Brachial] Respiratory Rate 22 Blood Pressure 92/51 96/66 Blood Pressure [Left Arm] O2 Sat by Pulse Oximetry 100 Oxygen Delivery Method Oxygen Flow Rate FIO2% 12/22/22 17:05 12/22/22 17:11 12/22/22 17:11 Temperature Pulse Rate 127 H 132 H Pulse Rate [Right Brachial] Respiratory Rate 25 H 21 Blood Pressure 99/66 Blood Pressure [Left Arm] O2 Sat by Pulse Oximetry 100 99 Oxygen Delivery Method Oxygen Flow Rate FIO2% 12/22/22 17:15 12/22/22 17:15 12/22/22 17:20 Temperature Pulse Rate 133 H 134 H Pulse Rate [Right Brachial] Respiratory Rate 25 H 30 H Blood Pressure 99/59 Blood Pressure [Left Arm] O2 Sat by Pulse Oximetry 100 100 Oxygen Delivery Method Oxygen Flow Rate FIO2% 12/22/22 17:20 12/22/22 17:25 12/22/22 17:25 Temperature Pulse Rate 137 H Pulse Rate [Right Brachial] Respiratory Rate 27 H Blood Pressure 99/66 116/63 Blood Pressure [Left Arm] O2 Sat by Pulse Oximetry 99 Oxygen Delivery Method Oxygen Flow Rate FIO2% 12/22/22 17:31 12/22/22 17:31 12/22/22 17:36 Temperature Pulse Rate 143 H Pulse Rate [Right Brachial] Respiratory Rate 17 Blood Pressure 105/65 150/70 Blood Pressure [Left Arm] O2 Sat by Pulse Oximetry 94 L Oxygen Delivery Method Oxygen Flow Rate FIO2% 12/22/22 17:36 12/22/22 17:41 12/22/22 17:41 Temperature Pulse Rate 130 H 139 H Pulse Rate [Right Brachial] Respiratory Rate 26 H 18 Blood Pressure 78/42 Blood Pressure [Left Arm] O2 Sat by Pulse Oximetry Oxygen Delivery Method Oxygen Flow Rate FIO2% 12/22/22 17:45 12/22/22 17:45 12/22/22 18:01 Temperature Pulse Rate 140 H Pulse Rate [Right Brachial] Respiratory Rate 12 12 Blood Pressure 73/50 Blood Pressure [Left Arm] O2 Sat by Pulse Oximetry 72 L Oxygen Delivery Method Oxygen Flow Rate FIO2% 12/22/22 17:09 12/22/22 18:12 Temperature Pulse Rate Pulse Rate [Right Brachial] Respiratory Rate 12 Blood Pressure 79/26 Blood Pressure [Left Arm] O2 Sat by Pulse Oximetry Oxygen Delivery Method Oxygen Flow Rate FIO2% Labs: Laboratory Last Values WBC 7.9 X10^3/uL (3.6-10.0) 12/22/22 04:34 RBC 3.69 X10^6/uL (4.7-6.0) L 12/22/22 04:34 Hgb 10.5 g/dL (13.5-18.0) L 12/22/22 04:34 Hct 32.1 % (42.0-54.0) L 12/22/22 04:34 MCV 87.0 fL (80.0-100.0) 12/22/22 04:34 MCH 28.5 pg (27.0-34.0) 12/22/22 04:34 MCHC 32.8 g/dL (33.0-35.0) L 12/22/22 04:34 RDW 15.9 % (11.6-16.5) 12/22/22 04:34 Plt Count 178 X10^3/uL (150.0-450.0) 12/22/22 04:34 MPV 8.4 fL (7.4-11.0) 12/22/22 04:34 Neut % (Auto) 74.8 % (42.0-75.0) 12/22/22 04:34 Lymph % (Auto) 9.1 % (21.0-51.0) L 12/22/22 04:34 Latimer % (Auto) 14.2 % (0.0-13.0) H 12/22/22 04:34 Eos % (Auto) 1.7 % (0.9-2.9) 12/22/22 04:34 Baso % (Auto) 0.2 % (0.2-1.0) 12/22/22 04:34 Neut # (Auto) 5.9 x10^3/uL (2.2-4.8) H 12/22/22 04:34 Lymph # (Auto) 0.7 X10^3/uL (1.3-2.9) L 12/22/22 04:34 [place] # (Auto) 1.1 x10^3/uL (0.3-0.8) H 12/22/22 04:34 Eos # (Auto) 0.1 x10^3/uL (0.0-0.2) 12/22/22 04:34 Baso # (Auto) 0.0 X10^3/uL (0.0-0.1) 12/22/22 04:34 Absolute Nucleated RBC 0.0 /100WBC 12/22/22 04:34 Sample Site Rr 12/22/22 16:44 ABG pH 7.380 (7.35-7.45) 12/22/22 16:44 ABG pCO2 40.0 mmHg (35.0-45.0) 12/22/22 16:44 ABG pO2 235.0 mmHg (80.0-100.0) H 12/22/22 16:44 ABG HCO3 23.7 mmol/L (22-26) 12/22/22 16:44 ABG O2 Saturation 100.0 % (90-100) 12/22/22 16:44 ABG Base Excess -1.3 mmol/L (-2.0-2.0) 12/22/22 16:44 Maxwell Test Na 12/22/22 16:44 A-a Gradient 143.0 mmHg 12/22/22 16:44 FiO2 60.0 12/22/22 16:44 Blood Gas Comments Cn/gb 12/22/22 16:44 Sodium 147 mmol/L (136-145) H 12/22/22 04:34 Corrected Sodium 147 mmol/L (136-145) H 12/22/22 04:34 Potassium 4.9 mmol/L (3.5-5.1) 12/22/22 04:34 Chloride 110 mmol/L (98-107) H 12/22/22 04:34 Carbon Dioxide 33.1 mmol/L (21-32) H 12/22/22 04:34 BUN 69 mg/dL (7-18) H 12/22/22 04:34 Creatinine 2.56 mg/dL (0.70-1.30) H 12/22/22 04:34 Est GFR (MDRD) Af Amer 32 (>60) L 12/22/22 04:34 Est GFR (MDRD) Non-Af 26 (>60) L 12/22/22 04:34 Glucose 115 mg/dL (65-99) H 12/22/22 04:34 POC Glucose (mg/dL) 102 mg/dL (65-99) H 12/21/22 20:04 Lactic Acid 1.5 mmol/L (0.4-2.0) 12/18/22 18:24 Calcium 9.8 mg/dL (8.5-10.1) 12/22/22 04:34 Corrected Calcium 11.3 mg/dL (8.5-10.1) H 12/22/22 04:34 Total Bilirubin 0.40 mg/dL (0.2-1.0) 12/22/22 04:34 AST 21 Units/L (15-37) 12/22/22 04:34 ALT 33 Units/L (12-78) 12/22/22 04:34 Alkaline Phosphatase 36 Units/L (46-116) L 12/22/22 04:34 B-Natriuretic Peptide 109 pg/mL (0-79) H 12/22/22 04:34 Total Protein 4.9 g/dL (6.4-8.2) L 12/22/22 04:34 Albumin 2.1 g/dL (3.4-5.0) L 12/22/22 04:34 Globulin 2.8 g/dL (2.5-4.5) 12/22/22 04:34 Albumin/Globulin Ratio 0.8 Ratio (1.1-2.1) L 12/22/22 04:34 Lipase 53 Units/L (73-393) L 12/18/22 14:55 Specimen Type Clean catch urine 12/18/22 15:46 Urine Color Yellow (YELLOW) 12/18/22 15:46 Urine Appearance Clear (CLEAR) 12/18/22 15:46 Urine pH 5.0 (5.0 - 8.0) 12/18/22 15:46 Ur Specific [place] 1.020 (1.000-1.030) 12/18/22 15:46 Urine Protein 2+ (NEGATIVE) 12/18/22 15:46 Urine Glucose (UA) Negative (NEGATIVE) 12/18/22 15:46 Urine Ketones 1+ (NEGATIVE) 12/18/22 15:46 Urine Blood 1+ (NEGATIVE) 12/18/22 15:46 Urine Nitrite Negative (NEGATIVE) 12/18/22 15:46 Urine Bilirubin Negative (NEGATIVE) 12/18/22 15:46 Urine Urobilinogen Normal (NORMAL) 12/18/22 15:46 Ur Leukocyte Esterase 1+ (NEGATIVE) 12/18/22 15:46 Urine RBC 0-2 /HPF (0-3) 12/18/22 15:46 Urine WBC 3-5 /HPF (0-5) 12/18/22 15:46 Ur Squamous Epith Cells Rare /HPF (NEGATIVE) 12/18/22 15:46 Urine Bacteria Negative /HPF (NEGATIVE) 12/18/22 15:46 Ur Culture Indicated? No/not indicated 12/18/22 15:46 Blood Type O POSITIVE 12/22/22 12:01 Antibody Screen Negative 12/22/22 12:01 Reason For Visit: SMALL BOWEL OBSTRUCTION, ACUTE NON TRAUMATIC Discharge Date Discharge Date: 12/22/22 Discharge Diagnosis All Active Problems (Updated 12/19/22 @ 18:24 by Jed Alcala) Nausea and vomiting (Acute) Elevated BP without diagnosis of hypertension (Acute) Acute bronchitis (Acute) Chest pain (Acute) Altered mental status (Acute) Generalized weakness (Acute) Headache (Acute) Ataxia (Acute) HTN (hypertension) (Chronic) Acute exacerbation of chronic obstructive pulmonary disease (COPD) (Acute) Hypertensive urgency, malignant (Acute) Coronary artery disease (Acute) Tobacco user (Acute) Abnormal kidney function (Acute) Hypertensive urgency (Acute) Burn (Acute) Chest pain (Acute) Headache (Acute) Edema (Acute) SOB (shortness of breath) (Acute) CHF (congestive heart failure) (Chronic) Bronchitis (Acute) COPD with acute exacerbation (Acute) Chest pain (Acute) Hypertension (Chronic) COPD exacerbation (Acute) Non-ST elevated myocardial infarction (non-STEMI) (Acute) Small bowel obstruction (Acute) Acute nontraumatic kidney injury (Acute) Plan of Treatment: Family encouraged to call me for any questions . Discharge Medications Discharge Medications: No Known Drug Allergies Allergy (Verified 12/14/21 08:57) Discharge Disposition Assessment: Discharge Plan Discharge Plan Hospital Course: This 72 year old male presented to the emergency room after several months of abdominal pain which was worse on the day of admission and presented with abdominal distension, nausea and vomiting. CT scan was obtained that was consistent with small bowel obstruction. He had a history of an aorto-bifemoral bypass graft and had mesh in the midline presumably from a laparoscopic hernia repair . He had a history of coronary disease, old stroke with no residual and dementia. He gave no history of chest pain and his cardiac status has been stable for several years . On presentation creatinine was greater than 3 which is markedly elevated from previous studies. He had a Jimenez catheter and nasogastric tube placed. Nasogastric tube remained on suction and he did not pass flatus or bowel movements. He was hydrated in hopes that his rising creatinine was prerenal but despite IV administration it remained approximately 3. His urine output was adequate . He did have some wheezing, BNP only mildly elevated to 130 and was treated with Lasix . Because he did not get better surgery was planned. He would become confused and pulled out his nasogastric tube several times. When placed the last time by the nurses the nasoagastric tube got stuck in his pharynx and had to be removed the day of surgery after general anesthesia induced . Laparotomy with lysis of adhesions and a band across the terminal ileum caused the obstruction . 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 He was stable during the entire case and taken back to the ICU still intubated. I expected he would require fluids as he would third space a lot of fluid. He was hypotensive in the ICU requiring fluid administration and a levophed drip. His pressure was coming up it was greater than 120 mm of mercury systolic when he became bradycardic and subsequently asystolic and could not be resuscitated despite ACLS protocol. All of these events discussed with the patient's by me and all of her questions answered. Patient Disposition: 41 AT MEDICAL FAC Health Concerns: Post Hospitalization: new medications and changes needed to prevent readmission or further decline. Pt educated and given instructions on all concerns. Care Plan Goals: Problem: Pain/Alteration in Comfort Goal: Improve/ Resolve Pain; Achieve Pain Tolerance Instructions: Take pain medications as prescribed. Contact your primary care provider if your pain is unrelieved or worsens. Follow up with primary care provider as directed. Plan of Treatment: Family encouraged to call me for any questions . Assessment: Prescriptions: No Action atorvastatin 40 MG tablet 40 mg PO HS aspirin 81 MG tablet,delayed release (DR/EC) 81 mg PO DAILY Label Comments: clonazepam 2 MG tablet 2 mg PO HS Label Comments: Brilinta 60 mg Tablet 60 mg PO BID amlodipine 10 mg tablet 10 mg PO DAILY metoprolol tartrate 50 mg tablet 50 mg PO BID ergocalciferol (vitamin D2) [Vitamin D2] 50,000 unit Capsule 50,000 unit PO 2XW losartan 25 mg Tablet 25 mg PO DAILY albuterol sulfate 2.5 mg /3 mL (0.083 %) solution for nebulization 2.5 mg inhalation TID PRN (Reason: Shortness Of Breath) 30 Days Qty: 90 0RF Follow ups/Referrals Follow ups/Referrals: SINCERE TINAJERO [Primary Care Provider] - 3 days Tera Ko [STAFF PHYSICIAN] - 1 WEEK
== END 2022-12-22 18:17 | disposition expired | DRG 330 ==
LOC: ER 14:34 → MED/SURG 18:58 → ICU 12-21 11:30
PROVIDERS: ADMIT Internal Medicine; ATTEND Internal Medicine
DX: I50.9 Heart failure, unspecified; I11.0 Hypertensive heart disease with heart failure; Z72.0 Tobacco use; R00.0 Tachycardia, unspecified; K94.23 Gastrostomy malfunction; E78.2 Mixed hyperlipidemia; Z86.73 Personal history of transient ischemic attack (TIA), and cerebral infarction without residual deficits; R53.1 Weakness; N17.8 Other acute kidney failure; R11.14 Bilious vomiting; J44.9 Chronic obstructive pulmonary disease, unspecified; R06.02 Shortness of breath; K56.690 Other partial intestinal obstruction; E86.0 Dehydration; K21.9 Gastro-esophageal reflux disease without esophagitis; I25.10 Atherosclerotic heart disease of native coronary artery without angina pectoris; I46.9 Cardiac arrest, cause unspecified